=== PATIENT | male | born 1955 | race American Indian/Alaskan Native ===

== ENCOUNTER 2016-10-02 09:51 | Outpatient (CLI) | payer BC ==
[2016-10-02 10:40] LABS: Blood Urea Nitrogen 13 mg/dL (9-20)
[2016-10-02] MEDS ORDERED: NACL ONE (10:45)
--- NOTE | 2016-10-02 12:13 | Cat Scan Report ---
CT CHEST WITH AND WITHOUT CONTRAST INDICATION: Right hilar mass, hoarseness. COMPARISON: None similar at this institution. FINDINGS: Chest CT performed before and after IV contrast. Unremarkable heart and great vessels. No effusions or size significant adenopathy. Coronary calcifications. Mild aortic arch calcifications. Patent central airway. Normal thyroid. Mild emphysematous changes, most involving the upper lobes. Nonspecific distal esophageal wall thickening, not excluded for gastroesophageal reflux and/or hiatal hernia, amongst others. Contrast reflux into the hepatic veins noted, not excluded for cardiac dysfunction. Otherwise unremarkable imaged upper abdomen. Mild imaged spinal degenerative spurring. CONCLUSION: No acute CT abnormality with various incidental findings, as described. Please correlate. Thank you for the opportunity to participate in this patient's care.
== END 2016-10-02 09:52 | disposition home or self-care (01) ==
LOC: CT 09:51
PROVIDERS: ATTEND Internal Medicine
DX: R91.8 Other nonspecific abnormal finding of lung field (principal); I25.10 Atherosclerotic heart disease of native coronary artery without angina pectoris; I70.0 Atherosclerosis of aorta
CPT/HCPCS: 36415; 71270; 82565; 84520; Q9967

== ENCOUNTER 2019-08-27 12:32 | Inpatient (IN) | payer OTHER ==
[2019-08-27] MEDS ORDERED: DEXTROSE 50% IN WATER (25GM) 50 ML SYRINGE IV PRN (12:34)
[2019-08-27] MEDS ORDERED: LIPASE 10,500/PROTEASE 25,000/AMYLASE 43,750 (UNITS) DR CAP FEEDTUBE PRN (12:44)
[2019-08-27] MEDS ORDERED: SODIUM BICARBONATE 325 MG TAB FEEDTUBE PRN (12:44)
[2019-08-27] MEDS ORDERED: SIMPLE SYRUP 15 ML FEEDTUBE PRN ×2 (12:44)
[2019-08-27] MEDS ORDERED: ALBUTEROL 2.5 MG/3 ML NEBU IH PRN (12:45)
[2019-08-27] MEDS ORDERED: ACETAMINOPHEN 325 MG TAB FEEDTUBE PRN (12:45)
[2019-08-27] MEDS ORDERED: POLYETHYLENE GLYCOL 3350 17 GM POWDER FEEDTUBE PRN (12:45)
[2019-08-27] MEDS ORDERED: hydrALAZINE 20 MG/1 ML INJ IV PRN (12:45)
[2019-08-27] MEDS: HEPARIN 5,000 UNIT/1 ML VIAL SUB-Q SCH ×2 (15:13→21:22)
--- NOTE | 2019-08-27 16:03 | History and Physical Report ---
History of Present Illness Date: 08/27/19 Date of admission: 08/27/19 13:41 Chief Complaint: CVA with right nondominant hemiplegia History of present illness: 63-year-old male who presented to the ER 08/10/19 after experiencing a right-sided facial droop with slurred speech that started the night before. CT head was taken and showed a left MCA infarct. tPA was not administered as the patient was outside the window. Neurology was consulted. CTA head and neck were also ordered, no stenosis seen in the right or left carotid, no significant stenosis noted in the vasculature of the head except in the left M2 branch near the origin. Patient was placed on appropriate secondary stroke prevention medication with DAPT. While on the espinosa he was noted upon examination to have respiratory distress along with diffuse wheezing. Suctioning was performed and food products were removed from his airway. He was transferred to the ICU and intubated. Stat chest CT was completed but did not reveal any plugging or obstructions. Patient was started on IV antibiotics for presumed aspiration pneumonia. He was seen by speech therapy and noted to have severe dysphagia. Initially he had a NG tube placed which was dislodged. Underwent MBS which showed stephani aspiration and oral pharyngeal dysphagia. He was then scheduled for PEG tube placement which occurred on August 21, 2019 and was performed by Dr. Gaudencio Gonzales. The tube is traction pull and once it is no longer needed may be pulled after [address] weeks [address] in [address]. Unfortunately it appears he may continue to have need for this. Currently is n.p.o. with ice chips after appropriate oral care, will continue n.p.o. and only start ice chips once speech therapy feels this is safe. Patient is left-hand dominant and has severe right-sided hemiparesis. Fortunately for him he does have some recovery of right-sided strength whereas before he was completely flaccid per outside records. Continues to have right foot drop. Echocardiogram on August 11, 2019 showed an EF of 25 to 30% with mildly dilated left ventricle and a grade 2 diastolic dysfunction. There is also mention of an abnormal stress test that the outside hospital with an incomplete date that appears to show an abnormal perfusion scan demonstrating a large defect of severe intensity in the basal, mid and apical anterior wall. Cardiology romario mmended a ischemic work-up via left heart cath as an outpatient once he is recovered. There was question as to whether the patient has obstructive sleep apnea and outpatient follow-up was also recommended for this to perform a sleep study. Patient was not transferred on CPAP which was apparently discontinued during his stay in the outside hospital. He was also found to have type 2 diabetes with an A1c of 6.9. New diagnoses for this patient this admission include CVA, CHF, pulmonary hyper tension, diabetes type 2, hypertension. Previously patient had only been diagnosed with COPD and is a former smoker having quit approximately 1 year ago. All available medical records were reviewed the day prior to the patient being admitted. In total, 47 minutes were invested in reviewing and summarizing the records as detailed above. On day of admission details above were verified and entered into the history and physical. Upon admission, additional medical records were reviewed that came with the patient however we were missing the latest progress notes as well as a discharge summary. Have contacted referring hospital and requested that those items be faxed over as well for review. After the patient was medically stabilized they were transferred for further rehabilitation. All available medical records have been reviewed. Plan of care was discussed with patient and family. 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 denies: smoking (Former, quit 1 year ago), alcohol abuse (Occasional use) Family history: cancer, stroke Medications and Allergies Allergies Allergy/AdvReac Type Severity Reaction Status Date / Time No Known Allergies Allergy Unverified 10/02/16 09:52 Active Meds: Active Medications Acetaminophen (Tylenol) 650 mg FEEDTUBE Q6H PRN PRN Reason: Non Cardiac Pain or Temp>100.5 Albuterol (Proventil) 2.5 mg IH Q4HRT PRN PRN Reason: Shortness Of Breath Lipase/Protease/Amylase (Pancremirna Staley 10,500 Unit) 1 each FEEDTUBE PRN PRN PRN Reason: For Clogged Feeding Tube Arformoterol Tartrate (Brovana Nebu) 15 mcg IH Q12HRT BRE Aspirin (Baby Aspirin) 81 mg FEEDTUBE QDAY BRE Atorvastatin Calcium (Lipitor) 40 mg FEEDTUBE QHS BRE Bisacodyl (Dulcolax) 10 mg NV QDAY PRN PRN Reason: Constipation Budesonide (Pulmicort) 0.5 mg IH Q12HRT BRE Carvedilol (Coreg) 6.25 mg FEEDTUBE BID BRE Clopidogrel Bisulfate (Plavix) 75 mg FEEDTUBE QDAY [facility] Dextrose (D50w (25gm) Syringe) 50 ml IV Q30MIN PRN; Protocol PRN Reason: Hypoglycemia Furosemide (Lasix) 40 mg FEEDTUBE QDAY BRE Heparin Sodium (Porcine) (Heparin) 5,000 unit SUB-Q Q8HR [facility] Last Admin: 08/27/19 15:13 Dose: 5,000 unit Documented by: Hydralazine HCl (Apresoline) 10 mg IV Q4HR PRN PRN Reason: Hypertension Insulin Glargine (Lantus) 10 units SUB-Q QHS BRE Insulin Human Lispro (Humalog) 0 unit SUB-Q AC BRE; Protocol Lansoprazole (Prevacid Solutab) 30 mg FEEDTUBE QDAY BRE Lisinopril (Zestril) 2.5 mg FEEDTUBE QDAY [facility] Modafinil (Provigil) 200 mg FEEDTUBE QAM [facility] Polyethylene Glycol (Miralax 3350) 17 gm FEEDTUBE QDAY PRN PRN Reason: Constipation Prednisone (Prednisone) 0 mg FEEDTUBE QDAY BRE Simple Syrup (Simple Syrup) 15 ml FEEDTUBE PRN PRN PRN Reason: Hypoglycemia Simple Syrup (Simple Syrup) 30 ml FEEDTUBE PRN PRN PRN Reason: Hypoglycemia Sodium Bicarbonate (Sodium Bicarbonate) 325 mg FEEDTUBE PRN PRN PRN Reason: For Clogged Feeding Tube Review of Systems All systems: negative (ROS negative for 12 systems except as noted below with pertinent positives and negatives.) Constitutional: weakness Ears, nose, mouth and throat: dysphagia, voice changes, no decreased hearing Cardiovascular: no chest pain, no palpitations, no rapid/irregular heart beat, no edema, no shortness of breath, no leg edema Respiratory: sleep apnea (Possible), no cough, no shortness of breath Gastrointestinal: no nausea, no vomiting, no diarrhea, no constipation Musculoskeletal: limitation of motion, gait dysfunction Integumentary: no rash, no pruritis, no sores Neurological: paralysis (Right ro-paresis), parathesias, lack of coordination, change in speech, gait dysfunction, no memory loss, no double vision, no loss of vision, no spasticity Psychiatric: no insomnia Exam - Exam Narrative exam: MUSCULOSKELETAL SPECIALTY EXAM CONSTITUTIONAL: Well developed, well nourished, appropriately groomed. LEFT hand dominant. LYMPHATIC: No appreciable abnormalities palpable in neck RESPIRATORY: Clear to auscultation bilaterally, no increased work of breathing CARDIOVASCULAR: Regular Rate/ Rhythm, no swelling, edema or tenderness in BUE or BLE. Pulses palpable in all extremities. All extremities warm. GI: + bowel sounds, soft, NTTP, nondistended. PEG tube in place INTEGUMENTARY: Normal, no lesion, rash, masses or bruising noted in extremities. MUSCULOSKELETAL: Right-sided hemiparesis with slight shoulder sublux, otherwise BUE and BLE normal without defect, crepitus, subluxation, effusion, arthritic changes or TTP . SA EF WE EE FF FA HF KE ADF EHL APF R 0/5 2/5 0/5 0/5 0/5 0/5 4-/5 4-/5 0/5 0/5 0/5 L 5/5 5/5 5/5 5/5 5/5 5/5 5/5 5/5 5/5 5/5 5/5 ROM decreased on right Tone increased on right upper extremity, normal elsewhere NEURO: CN II : Visual cervantes full to confrontation CN II, III : PERRL CN III, IV, : EOMI CN V : Facial sensation intact CN VII : Right facial droop CN VIII : Hearing intact to finger rustle CN IX, X : Palate/uvula elevate midline, phonation abnormal CN XI : Absent shoulder shrug on right, normal head rotation CN XII : Tongue protrudes slightly right Sensation intact in all extremities without extinction. Reflexes 3+ on right and 2+ on left at biceps, brachioradialis and patella. No clonus at ankles. Coordination intact in LUE. No tremor noted in 4 extremities. Naming and repetition intact. Follows 2 step commands. Aphasia not appreciated Dysarthria present Dysphagia present Neglect not appreciated POSTURE and GAIT: Sitting posture good. Balance and gait deferred until seen with therapy. PSYCH: Alert, oriented x3, affect appears euthymic. Insight appears intact. - Constitutional Vitals: Vital Signs - 12hr 08/27/19 13:43 Temperature 97.3 F L Pulse Rate 71 Respiratory 18 Rate Blood Pressure 89/58 [Right] O2 Sat by Pulse 90 Oximetry - Labs CBC & Chem 7: 08/28/19 04:45 08/28/19 04:45 Assessment and Plan Assessment and plan: Patient was assessed and evaluated for Acute Inpatient Rehab Unit. Due to the patients above-mentioned medical complexity, along with decreased functional mobility and self care, this patient continues to require and be appropriate for a comprehensive, multidisciplinary [id number] rehabilitation program. These needs cannot be met in an outpatient or other less intensive setting. The patient would continue to benefit from skilled therapy intervention for at least 3 hours per day, five days a week, with t echniques specific to the needs of the patient to improve function, activities of daily living, and reintegration into the community. The patient continues to require: -- OT to improve ROM, self-care, and learn use of adaptive equipment -- PT to improve strength and balance, functional transfers, and ambulation with energy conservation techniques to improve functional mobility -- MANAGER DIALYSIS to address cognitive deficits and swallowing ability -- 24 hour RN to ensure and prevent skin breakdown, promote progressive independence while ensuring safety, ensure education regarding medications, and incorporation of the rehabilitation at the bedside -- 24 hour Environmental Geologist to coordinate this interdisciplinary program, and to manage/prevent complications as a result of the patients medical comorbidities. -Plan of care by day 4 -Weekly team conferences With such a program, there is a reasonable certainty that the goals individualized for this patient can be achieved within the specified length of stay. CVA with right nondominant hemiparesis: Continue secondary stroke protocol with DAPT. Continue to monitor for recurrent CVA, post stroke depression, shoulder- hand syndrome. Monitor skin for any new wounds and monitor positioning to reduce chance of new ones. No driving until cleared by neurology, follow-up with neurology after discharge. Discussion held with patient as well as concerning prognosis, secondary stroke prevention, and plan of care for stroke recovery. Smoking cessation conversation held with as well as patient. In total 5 minutes was spent on the importance of the going through smoking cessation as well as the maintaining his cessation. COPD: Continue medications as ordered. Supplemental O2 as needed. Monitor for signs symptoms of exacerbation. Respiratory therapy consult. CHF: Monitor for CHF exacerbation. Daily weights, nursing notify for weight gain greater than 5 pounds in 1 week. Lifestyle modifications discussed (weight loss, tobacco cessation, decrease sodium intake). Continue loop diuretics, beta-seven and KODAK inhibitor as tolerated. Hypertension: Continue medication. Monitor blood pressure and adjust medications as needed for normotension. Hold for hypotension Diabetes type 2: Patient currently on tube feeds. Will monitor blood glucose and continue sliding scale insulin as well as Lantus. Adjust medications as needed for normal glycemia. Dysphagia: Continue n.p.o. with tube feeds. MANAGER DIALYSIS to monitor and advance diet as able and perform FEES, MBSS or e-stim as needed. Right foot drop: Continue therapy. Monitor foot placement to avoid injury. Kodak wrap and/or AFO as needed and tolerated. May need to order custom AFO, will make decision as we work with him. Right shoulder subluxation: Continue support right upper extremity with either sling and/or arm tray in the wheelchair. Monitor for worsening continue strengthening and e-stim as needed for improvement. No current signs of shoulder-hand syndrome continue to monitor for any signs or symptoms. Right facial droop: Continue therapy for strengthening exercises to improve facial strength. E-stim as needed. Dysarthria: Continue MANAGER DIALYSIS to improve ability to speak clearly by strengthening and improving control muscles, improving breath support and slowing rate of speech. ADL dysfunction: OT will work on improving ability to perform ADLs (including assistive devices) to increase independence and decrease caregiver burden and improve functional transfers and mobility training. Difficulty walking: PT will work on gait training and proper use of assistive devices and advance as appropriate to use of stairs and outside ambulation on uneven surfaces. Unsteadiness on feet: PT will work on improving static and dynamic sitting and standing balance as well as proper use of assistive devices to decrease risk of falls. Abnormality of gait: PT will work to improve safety and efficiency of gait through neuromotor training and gait training along with instruction on proper use of assistive devices. Muscle weakness: PT & OT will work on strengthening exercises to improve functional strength including mixture of closed and open kinetic chain exercises. Debility: PT & OT will work on improving overall functional status to improve participation with ADLs, mobility and social involvement. Fatigue: PT & OT will work on improving endurance through aerobic exercises and therapeutic activity while monitoring patients tolerance for activity and vital signs as needed. DVT ppx: Heparin Pain: Continue physical modalities in therapy and pain medications as needed to achieve functional pain control. Sleep: Monitor and address as needed. Bowel: Monitor and address as needed. Appetite: Monitor and address as needed. Discharge planning: Pending therapy progress and care plan meeting. Will continue discussion with therapy team, SW, patient and family. Restrictions/ Precautions: Falls, aspiration, right hemiparesis WB status: FWB Functional Hx: ADLs: Independent Cognition: Independent Mobility: No AD Barriers to Discharge: Decreased mobility and ability to perform self care, balance deficits, weakness Estimated Length of Stay: 1421 days Discharge Destination: Home with family In total 75 minutes were spent with the patient and documentation. Greater than 45 minutes was spent [id number] with the patient and his counseling and coordinating care discussing the prognosis and recovery from his CVA as well as his new onset medical issues, contacting outside hospital for further records and discussing medical issues with nursing and therapy. POST ADMISSION PHYSICIAN EVALUATION I have examined the patient and find that functional status, medical condition and appropriateness for IR[facility] admission are essentially unchanged from those described in the preadmission screening. Will monitor for worsening CVA with right hemiparesis, dysphagia, dysarthria, right foot drop, shoulder subluxation, shoulder-hand syndrome, post stroke depression, recurrent CVA, DVT/PE, bowel and bladder complications and complications due to hypertension, CHF, diabetes, COPD, skin breakdown, and electrolyte abnormalities. Will attempt to avoid occurrence of these issues or treat them if they present themselves.
[2019-08-27] MEDS: INSULIN LISPRO 100 UNIT/ML SUB-Q SCH (16:43)
[2019-08-27] MEDS: ARFORMOTEROL 15 MCG/2 ML NEBU IH SCH (20:31)
[2019-08-27] MEDS: BUDESONIDE 0.5 MG/2 ML NEBU IH SCH (20:31)
[2019-08-27] MEDS: carvediloL 6.25 MG TAB FEEDTUBE SCH (21:20)
[2019-08-27] MEDS: INSULIN GLARGINE 100 UNITS/ML SUB-Q SCH (21:29)
[2019-08-28] MEDS: HEPARIN 5,000 UNIT/1 ML VIAL SUB-Q SCH ×3 (05:35→22:58)
[2019-08-28 05:38] LABS: Basophils % (Auto) 0.2 % (0.0-1.8); Eosinophils # (Auto) 0.2 K/mm3 (0.0-0.4); Eosinophils % (Auto) 3.3 % (0.0-4.3); Hematocrit 40.4 % (35.5-45.6); Hemoglobin 13.2 gm/dl (11.8-15.2); Lymphocytes # (Auto) 0.8 K/mm3 (1.2-5.4); Lymphocytes % (Auto) 12.2 % (13.4-35.0); Mean Corpuscular HGB Conc 33 % (32-34); Mean Corpuscular Volume 91 fl (84-94); Monocytes # (Auto) 0.7 K/mm3 (0.0-0.8); Platelet Count 217 K/mm3 (140-440); Red Blood Count 4.45 M/mm3 (3.65-5.03); Red Cell Distribution Width 12.8 % (13.2-15.2)
[2019-08-28 05:49] LABS: Alanine Aminotransferase 53 units/L (7-56); BUN/Creatinine Ratio 21; Blood Urea Nitrogen 17 mg/dL (9-20); Hemolysis Index 5
[2019-08-28] MEDS: INSULIN LISPRO 100 UNIT/ML SUB-Q SCH ×3 (07:48→17:02)
[2019-08-28] MEDS ORDERED: predniSONE 5 MG/5 ML ORAL LIQUID FEEDTUBE SCH (08:00)
[2019-08-28] MEDS: LISINOPRIL 5 MG TAB FEEDTUBE SCH (08:44)
[2019-08-28] MEDS: BUDESONIDE 0.5 MG/2 ML NEBU IH SCH ×2 (08:50→19:58)
[2019-08-28] MEDS: ARFORMOTEROL 15 MCG/2 ML NEBU IH SCH ×2 (08:50→19:58)
[2019-08-28 09:04] LABS: Prealbumin 0.238 g/L (0.200-0.400)
[2019-08-28] MEDS: LANSOPRAZOLE 30 MG SOLUTAB FEEDTUBE SCH (10:36)
[2019-08-28] MEDS: FUROSEMIDE 40 MG TAB FEEDTUBE SCH (10:36)
[2019-08-28] MEDS: ASPIRIN 81 MG TAB CHEW FEEDTUBE SCH (10:36)
[2019-08-28] MEDS: carvediloL 6.25 MG TAB FEEDTUBE SCH ×2 (10:36→22:49)
[2019-08-28] MEDS: MODAFINIL 100 MG TAB FEEDTUBE SCH (11:43)
[2019-08-28] MEDS: CLOPIDOGREL 75 MG TAB FEEDTUBE SCH (11:44)
--- NOTE | 2019-08-28 15:29 | Progress Note ---
Subjective Date of service: 08/28/19 Principal diagnosis: CVA with right nondominant hemiplegia Interval history: 63-year-old male who presented to the ER 08/10/19 after experiencing a right-sided facial droop with slurred speech that started the night before. CT head was taken and showed a left MCA infarct. tPA was not administered as the patient was outside the window. Neurology was consulted. CTA head and neck were also ordered, no stenosis seen in the right or left carotid, no significant stenosis noted in the vasculature of the head except in the left M2 branch near the origin. Patient was placed on appropriate secondary stroke prevention medication with DAPT. While on the espinosa he was noted upon examination to have respiratory distress along with diffuse wheezing. Suctioning was performed and food products were removed from his airway. He was transferred to the ICU and intubated. Stat chest CT was completed but did not reveal any plugging or obstructions. Patient was started on IV antibiotics for presumed aspiration pneumonia. He was seen by speech therapy and noted to have severe dysphagia. Initially he had a NG tube placed which was dislodged. Underwent MBS which showed stephani aspiration and oral pharyngeal dysphagia. He was then scheduled for PEG tube placement which occurred on August 21, 2019 and was performed by Dr. Gaudencio Gonzales. The tube is traction pull and once it is no longer needed may be pulled after [address] weeks of [address] in [address]. Unfortunately it appears he may continue to have need for this. Currently is n.p.o. with ice chips after appropriate oral care, will continue n.p.o. and only start ice chips once speech therapy feels this is safe. Patient is left-hand dominant and has severe right-sided hemiparesis. Fortunately for him he does have some recovery of right-sided strength whereas before he was completely flaccid per outside records. Continues to have right foot drop. Echocardiogram on August 11, 2019 showed an EF of 25 to 30% with mildly dilated left ventricle and a grade 2 diastolic dysfunction. There is also mention of an abnormal stress test that the outside hospital with an incomplete date that appears to show an abnormal perfusion scan demonstrating a large defect of severe intensity in the basal, mid and apical anterior wall. Cardiology recommended a ischemic work-up via left heart cath as an outpatient once he is recovered. There was question as to whether the patient has obstructive sleep apnea and outpatient follow-up was also recommended for this to perform a sleep study. Patient was not transferred on CPAP which was apparently discontinued during his stay in the outside hospital. He was also found to have type 2 diabetes with an A1c of 6.9. New diagnoses for this patient this admission include CVA, CHF, pulmonary hypertension, diabetes type 2, hypertension. Previously patient had only been diagnosed with COPD and is a former smoker having quit approximately 1 year ago. Interval History: Patient is participating in therapy and making reasonable progress. Taking rest breaks as needed. +BM. Denies pain, palpitations, dyspnea, cough, N/V, weakness, or joint pain. CVA with right nondominant hemiparesis: Tolerating secondary stroke prevention without signs of bleeding. No signs of worsening deficits due to CVA. No shoulder-hand syndrome appreciated. COPD: Continue inhalers. See dyspnea on exertion below. Otherwise at rest patient is not having any issues with breathing, no wheezes no use of accessory muscles etc. Dyspnea on exertion: Continue to monitor patient while doing exercises. He appears to be satting normally at rest however with exertion he drops into the 70s and 80s. Will need to monitor closely, will check chest x-ray CHF: Seems to be well controlled, monitor fluid status and edema along with daily weights. Continue medications and adjust as needed Hypertension: Blood pressures been on the lower side. Will continue to monitor and possibly need to adjust in the next few days if he starts to get lower. Diabetes type 2: So far glucose has not been extremely elevated. May be able to relax his sliding scale. Dysphagia: Continue n.p.o. until cleared by speech for being able to tolerate oral intake. Patient is on continuous tube feeds currently will look to change him to bolus feeds as soon as possible. Right foot drop: Continue to work with therapy. Will need AFO at some point. Dysarthria: Stable at this point. Continue work with speech in order to improve. Right shoulder subluxation: Stable, reminded patient to continue to elevate the arm and to monitor it. No signs of shoulder-hand syndrome currently. All records, vitals, labs and medications were reviewed. No other issues per patient, nursing or therapy. Patient is cussed during team conference. At this point this is a brand-new eval and therapy has not had much time to work with and evaluate the patient we are looking for likely the entire period of 21 days for this patient considering his deficits. Objective - Exam Narrative Exam: MUSCULOSKELETAL SPECIALTY EXAM CONSTITUTIONAL: Well developed, well nourished, appropriately groomed. LEFT hand dominant. RESPIRATORY: Clear to auscultation bilaterally, no increased work of breathing CARDIOVASCULAR: Regular Rate/ Rhythm, no swelling, edema or tenderness in BUE or BLE. All extremities warm. GI: + bowel sounds, soft, NTTP, nondistended. PEG tube in place INTEGUMENTARY: Normal, no lesion, rash, masses or bruising noted in extremities. MUSCULOSKELETAL: Right-sided hemiparesis with slight shoulder sublux, otherwise BUE and BLE normal without defect, crepitus, subluxation, effusion, arthritic changes or TTP. SA EF WE EE FF FA HF KE ADF EHL APF R 0/5 2/5 0/5 0/5 0/5 0/5 4-/5 4-/5 0/5 0/5 0/5 L 5/5 5/5 5/5 5/5 5/5 5/5 5/5 5/5 5/5 5/5 5/5 ROM decreased on right Tone increased on right upper extremity, normal elsewhere NEURO: CN VII : Right facial droop CN IX, X : Palate/uvula elevate midline, phonation abnormal CN XI : Absent shoulder shrug on right, normal head rotation CN XII : Tongue protrudes slightly right Sensation intact in all extremities without extinction. No tremor noted in 4 extremities. Naming and repetition intact. Follows 2 step commands. Aphasia not appreciated Dysarthria present Dysphagia present Neglect not appreciated POSTURE and GAIT: Sitting posture good. Balance and gait deferred until seen with therapy. PSYCH: Alert, oriented x3, affect appears euthymic. Insight appears intact. - Constitutional Vitals: Vital Signs - 12hr 08/28/19 08/28/19 08/28/19 04:39 07:54 08:50 Temperature 99.1 F 97.6 F Pulse Rate 83 78 Pulse Rate [ 81 Anterior Bilateral Throughout] Respiratory 17 18 Rate Respiratory 18 Rate [Anterior Bilateral Throughout] Blood Pressure 96/59 Blood Pressure 101/65 [Right] O2 Sat by Pulse 95 100 Oximetry 08/28/19 08/28/19 08:51 11:00 Temperature 97.2 F L Pulse Rate 85 Pulse Rate [ Anterior Bilateral Throughout] Respiratory 19 Rate Respiratory Rate [Anterior Bilateral Throughout] Blood Pressure Blood Pressure 109/68 [Right] O2 Sat by Pulse 96 100 Oximetry - Allied health notes Allied health notes reviewed: nursing, PT, ST, OT FIMS assessment as documented by PT/OT/ST: Locomotion- walk/wheelchair Ambulation Distance 10 - Labs CBC & Chem 7: 08/28/19 04:45 08/28/19 04:45 Labs: Laboratory Results - last 72 hr 08/27/19 08/27/19 08/28/19 16:19 20:52 04:45 WBC 6.7 RBC 4.45 Hgb 13.2 Hct 40.4 MCV 91 MCH 30 MCHC 33 RDW 12.8 L Plt Count 217 Lymph % (Auto) 12.2 L Mckinley % (Auto) 11.0 H Eos % (Auto) 3.3 Baso % (Auto) 0.2 Lymph # 0.8 L Mckinley # 0.7 Eos # 0.2 Baso # 0.0 Seg Neutrophils % 73.3 H Seg Neutrophils # 4.9 Sodium Potassium Chloride Carbon Dioxide Anion Gap BUN Creatinine Estimated GFR BUN/Creatinine Ratio Glucose POC Glucose 101 185 H Calcium Phosphorus Magnesium Total Bilirubin AST ALT Alkaline Phosphatase Total Protein Albumin Albumin/Globulin Ratio Prealbumin 08/28/19 08/28/19 08/28/19 04:45 07:21 07:52 WBC RBC Hgb Hct MCV MCH MCHC RDW Plt Count Lymph % (Auto) Mckinley % (Auto) Eos % (Auto) Baso % (Auto) Lymph # Mckinley # Eos # Baso # Seg Neutrophils % Seg Neutrophils # Sodium 136 L Potassium 4.2 Chloride 98.7 Carbon Dioxide 28 Anion Gap 14 BUN 17 Creatinine 0.8 Estimated GFR > 60 BUN/Creatinine Ratio 21 Glucose 159 H POC Glucose 122 H Calcium 9.0 Phosphorus 3.50 Magnesium 2.20 Total Bilirubin 0.30 AST 40 ALT 53 Alkaline Phosphatase 83 Total Protein 6.1 L Albumin 3.0 L Albumin/Globulin Ratio 1.0 Prealbumin 0.238 08/28/19 12:06 WBC RBC Hgb Hct MCV MCH MCHC RDW Plt Count Lymph % (Auto) Mckinley % (Auto) Eos % (Auto) Baso % (Auto) Lymph # Mckinley # Eos # Baso # Seg Neutrophils % Seg Neutrophils # Sodium Potassium Chloride Carbon Dioxide Anion Gap BUN Creatinine Estimated GFR BUN/Creatinine Ratio Glucose POC Glucose 118 H Calcium Phosphorus Magnesium Total Bilirubin AST ALT Alkaline Phosphatase Total Protein Albumin Albumin/Globulin Ratio Prealbumin Assessment and Plan CVA with right nondominant hemiparesis: Continue secondary stroke protocol with DAPT. Continue to monitor for recurrent CVA, post stroke depression, shoulder- hand syndrome. Monitor skin for any new wounds and monitor positioning to reduce chance of new ones. No driving until cleared by neurology, follow-up with neurology after discharge. Discussion held with patient as well as concerning prognosis, secondary stroke prevention, and plan of care for stroke recovery. Smoking cessation conversation held with as well as patient. In total 5 minutes was spent on the importance of the going through smoking cessation as well as the maintaining his cessation. COPD: Continue medications as ordered. Supplemental O2 as needed. Monitor for signs symptoms of exacerbation. Respiratory therapy consult. CHF: Monitor for CHF exacerbation. Daily weights, nursing notify for weight gain greater than 5 pounds in 1 week. Lifestyle modifications discussed (weight loss, tobacco cessation, decrease sodium intake). Continue loop diuretics, beta-seven and KODAK inhibitor as tolerated. Hypertension: Continue medication. Monitor blood pressure and adjust medications as needed for normotension. Hold for hypotension Diabetes type 2: Patient currently on tube feeds. Will monitor blood glucose and continue sliding scale insulin as well as Lantus. Adjust medications as needed for normal glycemia. Dysphagia: Continue n.p.o. with tube feeds. AUDITOR to monitor and advance diet as able and perform FEES, MBSS or e-stim as needed. Right foot drop: Continue therapy. Monitor foot placement to avoid injury. Kodak wrap and/or AFO as needed and tolerated. May need to order custom AFO, will make decision as we work with him. Right shoulder subluxation: Continue support right upper extremity with either sling and/or arm tray in the wheelchair. Monitor for worsening continue strengthening and e-stim as needed for improvement. No current signs of shoulder-hand syndrome continue to monitor for any signs or symptoms. Right facial droop: Continue therapy for strengthening exercises to improve facial strength. E-stim as needed. Dysarthria: Continue AUDITOR to improve ability to speak clearly by strengthening and improving control muscles, improving breath support and slowing rate of speech. ADL dysfunction: OT will work on improving ability to perform ADLs (including assistive devices) to increase independence and decrease caregiver burden and improve functional transfers and mobility training. Difficulty walking: PT will work on gait training and proper use of assistive devices and advance as appropriate to use of stairs and outside ambulation on uneven surfaces. Unsteadiness on feet: PT will work on improving static and dynamic sitting and standing balance as well as proper use of assistive devices to decrease risk of falls. Abnormality of gait: PT will work to improve safety and efficiency of gait thro [facility] neuromotor training and gait training along with instruction on proper use of assistive devices. Muscle weakness: PT & OT will work on strengthening exercises to improve functional strength including mixture of closed and open kinetic chain exercises. Debility: PT & OT will work on improving overall functional status to improve participation with ADLs, mobility and social involvement. Fatigue: PT & OT will work on improving endurance through aerobic exercises and therapeutic activity while monitoring patients tolerance for activity and vital signs as needed. DVT ppx: Heparin Pain: Continue physical modalities in therapy and pain medications as needed to achieve functional pain control. Sleep: Monitor and address as needed. Bowel: Monitor and address as needed. Appetite: Monitor and address as needed. Discharge planning: Pending therapy progress and care plan meeting. Will continue discussion with therapy team, SW, patient and family. Restrictions/ Precautions: Falls, aspiration, right hemiparesis WB status: FWB Functional Hx: ADLs: Independent Cognition: Independent Mobility: No AD Barriers to Discharge: Decreased mobility and ability to perform self care, armando nce deficits, weakness Estimated Length of Stay: 1421 days Discharge Destination: Home with family
--- NOTE | 2019-08-28 16:04 | XRay Report ---
CHEST 1 VIEW 08/28/2019 3:50 PM INDICATION / CLINICAL INFORMATION: Shortness of breath, desaturation. COMPARISON: None available. FINDINGS: SUPPORT DEVICES: None. HEART / MEDIASTINUM: Mild cardiomegaly. LUNGS / PLEURA: No significant pulmonary or pleural abnormality. No pneumothorax. ADDITIONAL FINDINGS: No significant additional findings. IMPRESSION: 1. Mild cardiomegaly without focal pulmonary abnormality. Signer Name: Deshaun Da Silva MD Signed: 08/28/2019 4:00 PM Workstation Name: [email or web address]
[2019-08-28] MEDS: INSULIN GLARGINE 100 UNITS/ML SUB-Q SCH (22:49)
[2019-08-29] MEDS: HEPARIN 5,000 UNIT/1 ML VIAL SUB-Q SCH ×3 (06:20→22:49)
[2019-08-29] MEDS: INSULIN LISPRO 100 UNIT/ML SUB-Q SCH ×3 (08:27→18:55)
[2019-08-29] MEDS: LANSOPRAZOLE 30 MG SOLUTAB FEEDTUBE SCH (08:29)
[2019-08-29] MEDS: carvediloL 6.25 MG TAB FEEDTUBE SCH ×2 (08:29→22:50)
[2019-08-29] MEDS: CLOPIDOGREL 75 MG TAB FEEDTUBE SCH (08:29)
[2019-08-29] MEDS: LISINOPRIL 5 MG TAB FEEDTUBE SCH (08:29)
[2019-08-29] MEDS: FUROSEMIDE 40 MG TAB FEEDTUBE SCH (08:29)
[2019-08-29] MEDS: ASPIRIN 81 MG TAB CHEW FEEDTUBE SCH (08:29)
[2019-08-29] MEDS: MODAFINIL 100 MG TAB FEEDTUBE SCH (09:09)
[2019-08-29] MEDS: BUDESONIDE 0.5 MG/2 ML NEBU IH SCH ×2 (10:56→23:09)
[2019-08-29] MEDS: ARFORMOTEROL 15 MCG/2 ML NEBU IH SCH ×2 (10:56→23:09)
[2019-08-29] MEDS: predniSONE 5 MG/5 ML ORAL LIQUID FEEDTUBE SCH (12:48)
--- NOTE | 2019-08-29 13:27 | Progress Note ---
Subjective Date of service: 08/29/19 Principal diagnosis: CVA with right nondominant hemiplegia Interval history: 63-year-old male who presented to the ER 08/10/19 after experiencing a right-sided facial droop with slurred speech that started the night before. CT head was taken and showed a left MCA infarct. tPA was not administered as the patient was outside the window. Neurology was consulted. CTA head and neck were also ordered, no stenosis seen in the right or left carotid, no significant stenosis noted in the vasculature of the head except in the left M2 branch near the origin. Patient was placed on appropriate secondary stroke prevention medication with DAPT. While on the espinosa he was noted upon examination to have respiratory distress along with diffuse wheezing. Suctioning was performed and food products were removed from his airway. He was transferred to the ICU and intubated. Stat chest CT was completed but did not reveal any plugging or obstructions. Patient was started on IV antibiotics for presumed aspiration pneumonia. He was seen by speech therapy and noted to have severe dysphagia. Initially he had a NG tube placed which was dislodged. Underwent MBS which showed stephani aspiration and oral pharyngeal dysphagia. He was then scheduled for PEG tube placement which occurred on August 21, 2019 and was performed by Dr. Gaudencio Gonzales. The tube is traction pull and once it is no longer needed may be pulled after [address] weeks of [address] in [address]. Unfortunately it appears he may continue to have need for this. Currently is n.p.o. with ice chips after appropriate oral care, will continue n.p.o. and only start ice chips once speech therapy feels this is safe. Patient is left-hand dominant and has severe right-sided hemiparesis. Fortunately for him he does have some recovery of right-sided strength whereas before he was completely flaccid per outside records. Continues to have right foot drop. Echocardiogram on August 11, 2019 showed an EF of 25 to 30% with mildly dilated left ventricle and a grade 2 diastolic dysfunction. There is also mention of an abnormal stress test that the outside hospital with an incomplete date that appears to show an abnormal perfusion scan demonstrating a large defect of severe intensity in the basal, mid and apical anterior wall. Cardiology recommended a ischemic work-up via left heart cath as an outpatient once he is recovered. There was question as to whether the patient has obstructive sleep apnea and outpatient follow-up was also recommended for this to perform a sleep study. Patient was not transferred on CPAP which was apparently discontinued during his stay in the outside hospital. He was also found to have type 2 diabetes with an A1c of 6.9. New diagnoses for this patient this admission include CVA, CHF, pulmonary hypertension, diabetes type 2, hypertension. Previously patient had only been diagnosed with COPD and is a former smoker having quit approximately 1 year ago. Interval History: Patient is participating in therapy and making reasonable progress. Taking rest breaks as needed. +BM. Denies pain, palpitations, dyspnea, cough, N/V, weakness, or joint pain. Also have [place] paperwork to fill out. CVA with right nondominant hemiparesis: Tolerating secondary stroke prevention without signs of bleeding. No signs of worsening deficits due to CVA. No shoulder-hand syndrome appreciated. COPD: Continue inhalers. See dyspnea on exertion below. Otherwise at rest patient is not having any issues with breathing, no wheezes no use of accessory muscles etc. Dyspnea on exertion: Continue to monitor patient while doing exercises. Chest x-ray reviewed did not show any acute abnormalities. Patient seems to be doing much better today as long as he is reminded to keep breathing his oxygen sats are staying in the 90s. CHF: Seems to be well controlled, monitor fluid status and edema along with daily weights. Continue medications and adjust as needed Hypertension: Blood pressures been on the lower side. Will continue to monitor and possibly need to adjust in the next few days if he starts to get lower. Diabetes type 2: We will add metformin and discontinue Lantus. Continue sliding scale. May also be elevated due to steroid. Continue to monitor Dysphagia: Continue n.p.o. until cleared by speech for being able to tolerate oral intake. Dietitian has not changed patient over to bolus feeds, I will make calculations and change him over. Right foot drop: On initial exam patient was unable to dorsiflex his right foot however today he has the ability to do this. We will continue to monitor to see if this continues or if this is an intermittent issue. For the time being will hold off on AFO. Dysarthria: Stable at this point. Continue work with speech in order to improve. Right shoulder subluxation: Stable, reminded patient to continue to elevate the arm and to monitor it. No signs of shoulder-hand syndrome currently. All records, vitals, labs and medications were reviewed. No other issues per patient, nursing or therapy. Objective - Exam Narrative Exam: MUSCULOSKELETAL SPECIALTY EXAM CONSTITUTIONAL: Well developed, well nourished, appropriately groomed. LEFT hand dominant. RESPIRATORY: Clear to auscultation bilaterally, no increased work of breathing CARDIOVASCULAR: Regular Rate/ Rhythm, no swelling, edema or tenderness in BUE or BLE. All extremities warm. GI: + bowel sounds, soft, NTTP, nondistended. PEG tube in place INTEGUMENTARY: Normal, no lesion, rash, masses or bruising noted in extremities. MUSCULOSKELETAL: Right-sided hemiparesis with slight shoulder sublux, otherwise BUE and BLE normal without defect, crepitus, subluxation, effusion, arthritic changes or TTP. SA EF WE EE FF FA HF KE ADF EHL APF R 0/5 2/5 0/5 0/5 0/5 0/5 4-/5 4-/5 3/5 3/5 3/5 L 5/5 5/5 5/5 5/5 5/5 5/5 5/5 5/5 5/5 5/5 5/5 ROM decreased on right Tone increased on right upper extremity, normal elsewhere NEURO: CN VII : Right facial droop CN IX, X : Palate/uvula elevate midline, phonation abnormal CN XI : Absent shoulder shrug on right, normal head rotation CN XII : Tongue protrudes slightly right Sensation intact in all extremities without extinction. No tremor noted in 4 extremities. Naming and repetition intact. Follows 2 step commands. Aphasia not appreciated Dysarthria present Dysphagia present Neglect not appreciated POSTURE and GAIT: Sitting posture good. Balance and gait deferred until seen with therapy. PSYCH: Alert, oriented x3, affect appears euthymic. Insight appears intact. - Constitutional Vitals: Vital Signs - 12hr 08/29/19 08/29/19 08/29/19 04:12 04:54 07:16 Temperature 97.9 F 97.7 F Pulse Rate 78 Pulse Rate [ Anterior Bilateral Throughout] Respiratory 18 18 Rate Respiratory Rate [Anterior Bilateral Throughout] Blood Pressure 90/60 109/69 O2 Sat by Pulse 98 91 Oximetry 08/29/19 08/29/19 10:56 10:59 Temperature Pulse Rate Pulse Rate [ 79 Anterior Bilateral Throughout] Respiratory Rate Respiratory 18 Rate [Anterior Bilateral Throughout] Blood Pressure O2 Sat by Pulse 99 Oximetry - Allied health notes Allied health notes reviewed: nursing, PT, ST, OT FIMS assessment as documented by PT/OT/ST: Locomotion- walk/wheelchair Ambulation Distance 10 - Labs CBC & Chem 7: 08/28/19 04:45 08/28/19 04:45 Labs: Laboratory Results - last 72 hr 08/27/19 08/27/19 08/28/19 16:19 20:52 04:45 WBC 6.7 RBC 4.45 Hgb 13.2 Hct 40.4 MCV 91 MCH 30 MCHC 33 RDW 12.8 L Plt Count 217 Lymph % (Auto) 12.2 L Blount % (Auto) 11.0 H Eos % (Auto) 3.3 Baso % (Auto) 0.2 Lymph # 0.8 L [place]ount # 0.7 Eos # 0.2 Baso # 0.0 Seg Neutrophils % 73.3 H Seg Neutrophils # 4.9 Sodium Potassium Chloride Carbon Dioxide Anion Gap BUN Creatinine Estimated GFR BUN/Creatinine Ratio Glucose POC Glucose 101 185 H Calcium Phosphorus Magnesium Total Bilirubin AST ALT Alkaline Phosphatase Total Protein Albumin Albumin/Globulin Ratio Prealbumin 08/28/19 08/28/19 08/28/19 04:45 07:21 07:52 WBC RBC Hgb Hct MCV MCH MCHC RDW Plt Count Lymph % (Auto) [place] % (Auto) Eos % (Auto) Baso % (Auto) Lymph # Blount # Eos # Baso # Seg Neutrophils % Seg Neutrophils # Sodium 136 L Potassium 4.2 Chloride 98.7 Carbon Dioxide 28 Anion Gap 14 BUN 17 Creatinine 0.8 Estimated GFR > 60 BUN/Creatinine Ratio 21 Glucose 159 H POC Glucose 122 H Calcium 9.0 Phosphorus 3.50 Magnesium 2.20 Total Bilirubin 0.30 AST 40 ALT 53 Alkaline Phosphatase 83 Total Protein 6.1 L Albumin 3.0 L Albumin/Globulin Ratio 1.0 Prealbumin 0.238 08/28/19 08/28/19 08/28/19 12:06 16:36 21:52 WBC RBC Hgb Hct MCV MCH MCHC RDW Plt Count Lymph % (Auto) [place] % (Auto) Eos % (Auto) Baso % (Auto) Lymph # Blount # Eos # Baso # Seg Neutrophils % Seg Neutrophils # Sodium Potassium Chloride Carbon Dioxide Anion Gap BUN Creatinine Estimated GFR BUN/Creatinine Ratio Glucose POC Glucose 118 H 166 H 147 H Calcium Phosphorus Magnesium Total Bilirubin AST ALT Alkaline Phosphatase Total Protein Albumin Albumin/Globulin Ratio Prealbumin 08/29/19 08/29/19 07:19 11:13 WBC RBC Hgb Hct MCV MCH MCHC RDW Plt Count Lymph % (Auto) [place] % (Auto) Eos % (Auto) Baso % (Auto) Lymph # Blount # Eos # Baso # Seg Neutrophils % Seg Neutrophils # Sodium Potassium Chloride Carbon Dioxide Anion Gap BUN Creatinine Estimated GFR BUN/Creatinine Ratio Glucose POC Glucose 137 H 195 H Calcium Phosphorus Magnesium Total Bilirubin AST ALT Alkaline Phosphatase Total Protein Albumin Albumin/Globulin Ratio Prealbumin Assessment and Plan CVA with right nondominant hemiparesis: Continue secondary stroke protocol with DAPT. Continue to monitor for recurrent CVA, post stroke depression, shoulder- hand syndrome. Monitor skin for any new wounds and monitor positioning to reduce chance of new ones. No driving until cleared by neurology, follow-up with neurology after discharge. Discussion held with patient as well as concerning prognosis, secondary stroke prevention, and plan of care for stroke recovery. Smoking cessation conversation held with as well as patient. In total 5 minutes was spent on the importance of the going through smoking cessation as well as the maintaining his cessation. COPD: Continue medications as ordered. Supplemental O2 as needed. Monitor for signs symptoms of exacerbation. Respiratory therapy consult. CHF: Monitor for CHF exacerbation. Daily weights, nursing notify for weight gain greater than 5 pounds in 1 week. Lifestyle modifications discussed (weight loss, tobacco cessation, decrease sodium intake). Continue loop diuretics, beta-seven and BECCA inhibitor as tolerated. Hypertension: Continue medication. Monitor blood pressure and adjust medications as needed for normotension. Hold for hypotension Diabetes type 2: Patient currently on tube feeds. Will monitor blood glucose and continue sliding scale insulin and newly started metformin. Adjust medications as needed for normal glycemia. Dysphagia: Continue n.p.o. with tube feeds. [employer]CIAL OFFICER to monitor and advance diet as able and perform FEES, MBSS or e-stim as needed. Right foot drop: Continue therapy. Monitor foot placement to avoid injury. Seems improved today. May need to order custom AFO, will make decision as we work with him. Right shoulder subluxation: Continue support right upper extremity with either sling and/or arm tray in the wheelchair. Monitor for worsening continue strengthening and e-stim as needed for improvement. No current signs of shoulder-hand syndrome continue to monitor for any signs or symptoms. Right facial droop: Continue therapy for strengthening exercises to improve facial strength. E-stim as needed. Dysarthria: Continue CHIEF FIN[employer]CIAL OFFICER to improve ability to speak clearly by strengthening and improving control muscles, improving breath support and slowing rate of speech. ADL dysfunction: OT will work on improving ability to perform ADLs (including assistive devices) to increase independence and decrease caregiver burden and improve functional transfers and mobility training. Difficulty walking: PT will work on gait training and proper use of assistive devices and advance as appropriate to use of stairs and outside ambulation on uneven surfaces. Unsteadiness on feet: PT will work on improving static and dynamic sitting and standing balance as well as proper use of assistive devices to decrease risk of falls. Abnormality of gait: PT will work to improve safety and efficiency of gait through neuromotor training and gait training along with instruction on proper use of assistive devices. Muscle weakness: PT & OT will work on strengthening exercises to improve functional strength including mixture of closed and open kinetic chain exercises. Debility: PT & OT will work on improving overall functional status to improve participation with ADLs, mobility and social involvement. Fatigue: PT & OT will work on improving endurance through aerobic exercises and therapeutic activity while monitoring patients tolerance for activity and vital signs as needed. DVT ppx: Heparin Pain: Continue physical modalities in therapy and pain medications as needed to achieve functional pain control. Sleep: Monitor and address as needed. Bowel: Monitor and address as needed. Appetite: Monitor and address as needed. Discharge planning: Pending therapy progress and care plan meeting. Will co ntinue discussion with therapy team, SW, patient and family. Restrictions/ Precautions: Falls, aspiration, right hemiparesis WB status: FWB Functional Hx: ADLs: Independent Cognition: Independent Mobility: No AD Barriers to Discharge: Decreased mobility and ability to perform self care, balance deficits, weakness Estimated Length of Stay: 1421 days Discharge Destination: Home with family
[2019-08-29] MEDS: metFORMIN 500 MG TAB FEEDTUBE SCH (18:54)
[2019-08-30] MEDS: HEPARIN 5,000 UNIT/1 ML VIAL SUB-Q SCH ×3 (06:15→22:43)
[2019-08-30] MEDS: BUDESONIDE 0.5 MG/2 ML NEBU IH SCH ×2 (07:59→22:33)
[2019-08-30] MEDS: ARFORMOTEROL 15 MCG/2 ML NEBU IH SCH ×2 (07:59→22:33)
[2019-08-30] MEDS: INSULIN LISPRO 100 UNIT/ML SUB-Q SCH ×3 (08:44→16:55)
[2019-08-30] MEDS: predniSONE 5 MG/5 ML ORAL LIQUID FEEDTUBE SCH (08:46)
[2019-08-30] MEDS: LANSOPRAZOLE 30 MG SOLUTAB FEEDTUBE SCH (08:47)
[2019-08-30] MEDS: CLOPIDOGREL 75 MG TAB FEEDTUBE SCH (08:47)
[2019-08-30] MEDS: FUROSEMIDE 40 MG TAB FEEDTUBE SCH (08:47)
[2019-08-30] MEDS: metFORMIN 500 MG TAB FEEDTUBE SCH ×2 (08:47→16:46)
[2019-08-30] MEDS: ASPIRIN 81 MG TAB CHEW FEEDTUBE SCH (08:47)
[2019-08-30] MEDS: LISINOPRIL 5 MG TAB FEEDTUBE SCH (16:20)
[2019-08-30] MEDS: carvediloL 6.25 MG TAB FEEDTUBE SCH ×2 (16:21→22:42)
[2019-08-30] MEDS: MODAFINIL 100 MG TAB FEEDTUBE SCH (16:45)
--- NOTE | 2019-08-30 21:33 | IRU Plan of Care ---
Interdisciplinary Plan of Care - IP IRU INTERDISCIPLINARY PLAN: [facility] Inpatient Rehab Unit Plan of Care IRU Interdisciplinary Care Plan Start: 08/27/19 13:50 Freq: Admission then PRN Status: Active Protocol: Document 08/30/19 19:33 TH (Rec: 08/30/19 19:42 TH [id number]) Interdisciplinary Problem List Interdisciplinary Problem List Interdisciplinary Problem List Impaired Eating/Swallowing, Query Text:Answers will Trigger Problems Impaired Bathing/Grooming, and Outcomes on Worklist. Impaired Dressing,Impaired Mobility,Impaired Transfers, Impaired Toileting,Impaired Expression,Impaired Problem Solving,Knowledge Deficits, Discharge Concerns,Impaired Safety,Medications Education, Diabetes Education,Impaired Oxygenation,Impaired Cardiovascular System IRU Interdisciplinary Care Plan Therapy Services Therapy Services Will Include: Physical Therapy,Occupational Query Text:Patient will be seen for a Therapy,Speech Therapy minimum of 3 hours of daily therapy 5 out of 7 days a week. Therapy intensity may be adjusted within a 7 consecutive day period to effectively serve the individual needs of the patient. Treatment Frequency/Intensity/Duration Treatment Frequency 5 days per week Treatment Intensity 3 hours per day Treatment Duration 14-21 days Problem Area: Eating/Swallowing Eating/Swallowing Outcomes Consume Least Restrictive Diet ,Improve Labial ROM/Strength Eating/Swallowing Interventions Dysphagia Training, Compensatory Strategies, Neuromuscular Re-Education, Patient/Caregiver Education Problem Area: Bathing/Grooming Bathing/Grooming Outcomes Improve [place] w/ Grooming,Improve [place] w/ Bathing Bathing/Grooming Interventions ADL Training,Use of Assistive Devices,Therapeutic Exercise, Therapeutic Activity, Neuromuscular Re-Education, Balance Work,Activity Tolerance Work,Patient/ Caregiver Education Problem Area: Dressing Dressing Outcomes Improve [place] w/ UB Dressing,Improve [place] w/ LB Dressing Dressing Interventions ADL Training,Use of Assistive Devices,Neuromuscular Re- Education,Therapeutic Exercise ,Balance Work,Modalities, Patient/Caregiver Education Problem Area: Mobility Mobility Outcomes Improve [place] w/ Bed Mobility,Improve [place] w/ Ambulation,Improve [place] w/ Stairs/Curb, Improve [place] w/ Wheelchair Mobility Interventions Therapeutic Exercise, Neuromuscular Re-Ed.,Visual/ Perceptual Training,Activity Tolerance Work,Modalities,Use of Assistive Devices,Patient/ Caregiver Education,Bed Mobility Work,Gait Training, Household Mobility Work,W/C Mobility Work Problem Area: Transfers Transfers Outcomes Improve [place] w/ Toilet Transfers,Improve [place] w/ Tub/Shower Transfers Transfers Interventions Transfer Training,Therapeutic Exercise,Neuromuscular Re- Education,Visual/Perceptual Training,Activity Tolerance Work,Modalities,Use of Assistive Devices,Patient/ Caregiver Education Problem Area: Bowel/Bladder Managment Bowel/Bladder Outcomes Bowel/Bladder Interventions Problem Area: Toileting Toileting Outcomes Improve [place] w/ Toileting Toileting Interventions ADL Training,Balance Work,Use of Assistive Devices,Patient/ Caregiver Education Problem Area: Nutrition Nutrition Outcomes Nutrition Interventions Problem Area: Comprehension Comprehension Outcomes Comprehension Interventions Problem Area: Expression Expression Outcomes Expression Interventions Problem Area: Problem Solving Problem Solving Outcomes Improve Problem Solving Problem Solving Interventions Cognitive Training,Visual/ Perceptual Training,Safety Education,Patient/Caregiver Education Problem Area: Memory Memory Outcomes Memory Interventions Problem Area: Pain Management Pain Management Outcomes Pain Management Interventions Problem Area: Knowledge Deficits Knowledge Deficits Outcomes Verbalize Understanding of S/S of Stroke Knowledge Deficits Interventions Disease/Injury/Sx. Intervention Education,Safety Education Problem Area: Skin/Tissue Integrity Skin/Tissue Integrity Outcomes Skin/Tissue Integrity Interventions Problem Area: Social Interaction Social Interaction Outcomes Social Interaction Interventions Problem Area: Adjustment to Disability Adjustment to Disability Outcomes Adjustment to Disability Interventions Problem Area: Discharge Concerns Discharge Concerns Outcomes Discharge w/ Necessary Equipment,Have Home Health/ Outpatient Services Discharge Concerns Interventions Discharge Planning,Equipment Assessment, Acquisition and Placement,Family/Caregiver Conference,Patient/Family/ Caregiver Counseling,Family/ Caregiver Training Problem Area: Community Reintegration Community Reintegration Outcomes Demonstrate Understanding of Community Resources,Able to Re -Enter the Community Community Reintegration Interventions Activity Tolerance Work, Leisure Activity Problem Area: Home Management Home Management Outcomes Improve [place] w/ Home Management Home Management Interventions Meal Preparation,Clothing Care ,Activity Tolerance Work, Leisure Skills Development, House Cleaning,Shopping, Patient/Caregiver Education Problem Area: Safety Safety Outcomes Provide Safe Environment, Perform Selfcare Safely, Demonstrate Good Safety w/ Transfers/Mobility Safety Interventions Identify Fall Risk,[place] Pt. to Environment,Reduce Environmental Hazards,Neuro Check Assessment,Implement Mechanical Devices, i.e. Chair Alarm (Post Fall Update),Re- Educate Patient/Caregiver for Safety (Post Fall Update) Problem Area: Medication Education Medication Education Outcomes Patient/Caregiver will Verbalize Understanding of Medications Medication Education Interventions Explain Administration/Side Effects/Interactions Problem Area: Diabetes Education Diabetes Education Outcomes Demonstrate Knowledge of Resources Availlable in Diabetic Ed. Folder Diabetes Education Interventions Give Pt. Diabetes Education Folder,Discuss Pathophysiology of Diabetes Problem Area: Oxygenation Oxygenation Outcomes Maintain Adequate Oxygenation Oxygenation Interventions Assess Respiratory Status, Encourage Coughing and Deep Breathing Problem Area: Cardiovascular Cardiovascular Outcomes Maintain or Improve Cardiovascular Status Cardiovascular Interventions Assess Vital Signs at least Every 4 hours Physician Only Medical Prognosis and Rehabilitation Potential (Completed by Physician) Good rehab potential, fair medical prognosis This plan of care has been developed based on the findings from the pre-a dmission assessment, post admission physician evaluation, information gathered from the assessments from all therapy disciplines and other pertinent clinicians. The plan of care has been reviewed and discussed in collaboration with the interdisciplinary team. The plan of care will be reviewed and updated at least weekly.
[2019-08-31] MEDS: HEPARIN 5,000 UNIT/1 ML VIAL SUB-Q SCH ×3 (06:06→23:19)
[2019-08-31] MEDS: LANSOPRAZOLE 30 MG SOLUTAB FEEDTUBE SCH (07:55)
[2019-08-31] MEDS: ASPIRIN 81 MG TAB CHEW FEEDTUBE SCH (07:55)
[2019-08-31] MEDS: metFORMIN 500 MG TAB FEEDTUBE SCH ×2 (07:56→16:39)
[2019-08-31] MEDS: CLOPIDOGREL 75 MG TAB FEEDTUBE SCH (07:56)
[2019-08-31] MEDS: FUROSEMIDE 40 MG TAB FEEDTUBE SCH (07:56)
[2019-08-31] MEDS: INSULIN LISPRO 100 UNIT/ML SUB-Q SCH ×3 (08:47→16:39)
[2019-08-31] MEDS: LISINOPRIL 5 MG TAB FEEDTUBE SCH (08:47)
[2019-08-31] MEDS: carvediloL 6.25 MG TAB FEEDTUBE SCH ×2 (08:48→23:18)
[2019-08-31] MEDS: predniSONE 5 MG/5 ML ORAL LIQUID FEEDTUBE SCH (08:49)
[2019-08-31] MEDS: MODAFINIL 100 MG TAB FEEDTUBE SCH (09:57)
[2019-08-31] MEDS ORDERED: predniSONE 20 MG TAB PO ONE (10:00)
[2019-08-31] MEDS: ARFORMOTEROL 15 MCG/2 ML NEBU IH SCH ×2 (20:18→20:39)
[2019-08-31] MEDS: BUDESONIDE 0.5 MG/2 ML NEBU IH SCH ×2 (20:19→20:39)
[2019-09-01] MEDS: HEPARIN 5,000 UNIT/1 ML VIAL SUB-Q SCH ×3 (06:29→21:26)
[2019-09-01] MEDS: INSULIN LISPRO 100 UNIT/ML SUB-Q SCH ×3 (07:30→17:57)
[2019-09-01 07:53] LABS: Hematocrit 39.9 % (35.5-45.6); Hemoglobin 12.9 gm/dl (11.8-15.2); Mean Corpuscular HGB Conc 32 % (32-34); Mean Corpuscular Volume 90 fl (84-94); Platelet Count 206 K/mm3 (140-440); Red Blood Count 4.45 M/mm3 (3.65-5.03); Red Cell Distribution Width 12.4 % (13.2-15.2)
[2019-09-01 08:16] LABS: BUN/Creatinine Ratio 28; Blood Urea Nitrogen 22 mg/dL (9-20); Calcium 9.5 mg/dL (8.4-10.2); Hemolysis Index 6
[2019-09-01] MEDS: BUDESONIDE 0.5 MG/2 ML NEBU IH SCH ×2 (08:19→20:03)
[2019-09-01] MEDS: ARFORMOTEROL 15 MCG/2 ML NEBU IH SCH ×2 (08:19→20:03)
[2019-09-01] MEDS: LISINOPRIL 5 MG TAB FEEDTUBE SCH (09:13)
[2019-09-01] MEDS: carvediloL 6.25 MG TAB FEEDTUBE SCH ×2 (09:16→21:26)
[2019-09-01] MEDS: ASPIRIN 81 MG TAB CHEW FEEDTUBE SCH (09:17)
[2019-09-01] MEDS: FUROSEMIDE 40 MG TAB FEEDTUBE SCH (09:17)
[2019-09-01] MEDS: metFORMIN 500 MG TAB FEEDTUBE SCH ×2 (09:17→17:59)
[2019-09-01] MEDS: CLOPIDOGREL 75 MG TAB FEEDTUBE SCH (09:17)
[2019-09-01] MEDS: LANSOPRAZOLE 30 MG SOLUTAB FEEDTUBE SCH (09:17)
--- NOTE | 2019-09-01 09:53 | Progress Note ---
Subjective Date of service: 09/01/19 Principal diagnosis: CVA with right nondominant hemiplegia Interval history: 63-year-old male who presented to the ER 08/10/19 after experiencing a right-sided facial droop with slurred speech that started the night before. CT head was taken and showed a left MCA infarct. tPA was not administered as the patient was outside the window. Neurology was consulted. CTA head and neck were also ordered, no stenosis seen in the right or left carotid, no significant stenosis noted in the vasculature of the head except in the left M2 branch near the origin. Patient was placed on appropriate secondary stroke prevention medication with DAPT. While on the espinosa he was noted upon examination to have respiratory distress along with diffuse wheezing. Suctioning was performed and food products were removed from his airway. He was transferred to the ICU and intubated. Stat chest CT was completed but did not reveal any plugging or obstructions. Patient was started on IV antibiotics for presumed aspiration pneumonia. He was seen by speech therapy and noted to have severe dysphagia. Initially he had a NG tube placed which was dislodged. Underwent MBS which showed stephani aspiration and oral pharyngeal dysphagia. He was then scheduled for PEG tube placement which occurred on August 21, 2019 and was performed by Dr. Gaudencio Gonzales. The tube is traction pull and once it is no longer needed may be pulled after [address] weeks of [address] in [address]. Unfortunately it appears he may continue to have need for this. Currently is n.p.o. with ice chips after appropriate oral care, will continue n.p.o. and only start ice chips once speech therapy feels this is safe. Patient is left-hand dominant and has severe right-sided hemiparesis. Fortunately for him he does have some recovery of right-sided strength whereas before he was completely flaccid per outside records. Continues to have right foot drop. Echocardiogram on August 11, 2019 showed an EF of 25 to 30% with mildly dilated left ventricle and a grade 2 diastolic dysfunction. There is also mention of an abnormal stress test that the outside hospital with an incomplete date that appears to show an abnormal perfusion scan demonstrating a large defect of severe intensity in the basal, mid and apical anterior wall. Cardiology recommended a ischemic work-up via left heart cath as an outpatient once he is recovered. There was question as to whether the patient has obstructive sleep apnea and outpatient follow-up was also recommended for this to perform a sleep study. Patient was not transferred on CPAP which was apparently discontinued during his stay in the outside hospital. He was also found to have type 2 diabetes with an A1c of 6.9. New diagnoses for this patient this admission include CVA, CHF, pulmonary hypertension, diabetes type 2, hypertension. Previously patient had only been diagnosed with COPD and is a former smoker having quit approximately 1 year ago. Interval History: Patient is participating in therapy and making reasonable progress. Taking rest breaks as needed. +BM. Denies pain, palpitations, dyspnea, cough, N/V, weakness, or joint pain. CVA with right nondominant hemiparesis: Tolerating secondary stroke prevention without signs of bleeding. No signs of worsening deficits due to CVA. No shoulder-hand syndrome appreciated. COPD: Continue inhalers. No issues with dyspnea today. Dehydration: Start gentle IV fluids overnight for 1 L. Continue to monitor. May also increase water flushes. Blood pressure continues to be on the lower side. Dyspnea on exertion: No issues today. Patient is breathing well. Lungs sound clear. Continue to monitor for any issues and remind the patient to continue breathing when doing therapy. CHF: Seems to be well controlled, monitor fluid status and edema along with daily weights. Continue medications and adjust as needed Hypertension: Blood pressures been on the lower side. Medications are being held. Continue to monitor Diabetes type 2: We will add metformin and discontinue Lantus. Continue sliding scale. May also be elevated due to steroid. Continue to monitor Dysphagia: Continue n.p.o. until cleared by speech for being able to tolerate oral intake. For unknown reason, bolus feeds were not started even though nursing was notified on Sunday. Called back over the weekend and noticed this and asked them to restart bolus feeds. He is getting bolus feeding now. Continue to monitor Right foot drop: On initial exam patient was unable to dorsiflex his right foot however today he has the ability to do this. We will continue to monitor to see if this continues or if this is an intermittent issue. For the time being will hold off on AFO. Dysarthria: Stable at this point. Continue work with speech in order to improve. Right shoulder subluxation: Stable, reminded patient to continue to elevate the arm and to monitor it. No signs of shoulder-hand syndrome currently. All records, vitals, labs and medications were reviewed. No other issues per patient, nursing or therapy. Objective - Exam Narrative Exam: MUSCULOSKELETAL SPECIALTY EXAM CONSTITUTIONAL: Well developed, well nourished, appropriately groomed. LEFT hand dominant. RESPIRATORY: Clear to auscultation bilaterally, no increased work of breathing CARDIOVASCULAR: Regular Rate/ Rhythm, no swelling, edema or tenderness in BUE or BLE. All extremities warm. GI: + bowel sounds, soft, NTTP, nondistended. PEG tube in place INTEGUMENTARY: Normal, no lesion, rash, masses or bruising noted in extremities. MUSCULOSKELETAL: Right-sided hemiparesis with slight shoulder sublux, otherwise BUE and BLE normal without defect, crepitus, subluxation, effusion, arthritic changes or TTP. SA EF WE EE FF FA HF KE ADF EHL APF R 0/5 2/5 0/5 0/5 0/5 0/5 4-/5 4-/5 3/5 3/5 3/5 L 5/5 5/5 5/5 5/5 5/5 5/5 5/5 5/5 5/5 5/5 5/5 ROM decreased on right Tone increased on right upper extremity, normal elsewhere NEURO: CN VII : Right facial droop CN IX, X : Palate/uvula elevate midline, phonation abnormal CN XI : Absent shoulder shrug on right, normal head rotation CN XII : Tongue protrudes slightly right Sensation intact in all extremities without extinction. No tremor noted in 4 extremities. Naming and repetition intact. Follows 2 step commands. Aphasia not appreciated Dysarthria present Dysphagia present Neglect not appreciated POSTURE and GAIT: Sitting posture good. Balance and gait reasonable with cane. Slowed jono. PSYCH: Alert, oriented x3, affect appears euthymic. Insight appears intact. - Constitutional Vitals: Vital Signs - 12hr 09/01/19 09/01/19 05:26 07:17 Temperature 97.4 F L 97.9 F Pulse Rate 72 73 Respiratory 16 18 Rate Blood Pressure 106/69 106/74 O2 Sat by Pulse 94 98 Oximetry - Allied health notes Allied health notes reviewed: nursing, PT, ST, OT FIMS assessment as documented by PT/OT/ST: Social interaction/Memory/Problem solving Social Interaction FIM Score 6. Mod. [place] (Mostly appropriate. May need meds. No supv.) Memory FIM Score 5. Supervision (Needs cueing <10%, stressful/ unfamiliar situations.) Problem Solving FIM Score 5. Supervision (Needs cueing <10% to solve routine problems.) Transfers Mode of Locomotion: Wheelchair Bed/Chair/Wheelchair Transfers 3. Moderate Assistance (Patient = 50% or more. FIM Score Some lifting.) Locomotion- walk/wheelchair Ambulation Distance 10 - Labs CBC & Chem 7: 09/01/19 07:37 09/01/19 07:37 Labs: Laboratory Results - last 72 hr 08/29/19 08/29/19 08/29/19 11:13 16:23 22:26 WBC RBC Hgb Hct MCV MCH MCHC RDW Plt Count Sodium Potassium Chloride Carbon Dioxide Anion Gap BUN Creatinine Estimated GFR BUN/Creatinine Ratio Glucose POC Glucose 195 H 93 124 H Calcium 08/30/19 08/30/19 08/30/19 07:43 11:38 16:15 WBC RBC Hgb Hct MCV MCH MCHC RDW Plt Count Sodium Potassium Chloride Carbon Dioxide Anion Gap BUN Creatinine Estimated GFR BUN/Creatinine Ratio Glucose POC Glucose 158 H 132 H 212 H Calcium 08/30/19 08/31/19 08/31/19 22:57 05:38 07:39 WBC RBC Hgb Hct MCV MCH MCHC RDW Plt Count Sodium Potassium Chloride Carbon Dioxide Anion Gap BUN Creatinine Estimated GFR BUN/Creatinine Ratio Glucose POC Glucose 142 H 90 91 Calcium 08/31/19 08/31/19 08/31/19 12:05 16:31 22:55 WBC RBC Hgb Hct MCV MCH MCHC RDW Plt Count Sodium Potassium Chloride Carbon Dioxide Anion Gap BUN Creatinine Estimated GFR BUN/Creatinine Ratio Glucose POC Glucose 148 H 156 H 163 H Calcium 09/01/19 09/01/19 09/01/19 07:30 07:37 07:37 WBC 7.6 RBC 4.45 Hgb 12.9 Hct 39.9 MCV 90 MCH 29 MCHC 32 RDW 12.4 L Plt Count 206 Sodium 138 Potassium 4.3 Chloride 100.0 Carbon Dioxide 26 Anion Gap 16 BUN 22 H Creatinine 0.8 Estimated GFR > 60 BUN/Creatinine Ratio 28 Glucose 103 H POC Glucose 99 Calcium 9.5 Assessment and Plan CVA with right nondominant hemiparesis: Continue secondary stroke protocol with DAPT. Continue to monitor for recurrent CVA, post stroke depression, shoulder- hand syndrome. Monitor skin for any new wounds and monitor positioning to reduce chance of new ones. No driving until cleared by neurology, follow-up with neurology after discharge. Discussion held with patient as well as concerning prognosis, secondary stroke prevention, and plan of care for stroke recovery. Smoking cessation conversation held with as well as patient on admission COPD: Continue medications as ordered. Supplemental O2 as needed. Monitor for signs symptoms of exacerbation. Respiratory therapy consult. Dehydration: Gentle IV fluids monitor. Have already increased tube feed flushes. Continue to monitor CHF: Monitor for CHF exacerbation. Daily weights, nursing notify for weight gain greater than 5 pounds in 1 week. Lifestyle modifications discussed (weight loss, tobacco cessation, decrease sodium intake). Continue loop diuretics, beta-seven and BECCA inhibitor as tolerated. Daily weights not being performed. Addressed with nursing. Hypertension: Continue medication. Monitor blood pressure and adjust medications as needed for normotension. Hold for hypotension Diabetes type 2: Patient currently on tube feeds. Will monitor blood glucose an d continue sliding scale insulin and newly started metformin. Adjust medications as needed for normal glycemia. Dysphagia: Continue n.p.o. with tube feeds. PASTORAL WORKER to monitor and advance diet as able and perform FEES, MBSS or e-stim as needed. Right foot drop: Continue therapy. Monitor foot placement to avoid injury. Seems improved today. May need to order custom AFO, will make decision as we work with him. Right shoulder subluxation: Continue support right upper extremity with either sling and/or arm tray in the wheelchair. Monitor for worsening continue strengthening and e-stim as needed for improvement. No current signs of shoulder-hand syndrome continue to monitor for any signs or symptoms. Right facial droop: Continue therapy for strengthening exercises to improve facial strength. E-stim as needed. Dysarthria: Continue PASTORAL WORKER to improve ability to speak clearly by strengthening and improving control muscles, improving breath support and slowing rate of speech. ADL dysfunction: OT will work on improving ability to perform ADLs (including assistive devices) to increase independence and decrease caregiver burden and improve functional transfers and mobility training. Difficulty walking: PT will work on gait training and proper use of assistive devices and advance as appropriate to use of stairs and outside ambulation on uneven surfaces. Unsteadiness on feet: PT will work on improving static and dynamic sitting and standing balance as well as proper use of assistive devices to decrease risk of falls. Abnormality of gait: PT will work to improve safety and efficiency of gait through neuromotor training and gait training along with instruction on proper use of assistive devices. Muscle weakness: PT & OT will work on strengthening exercises to improve functio nal strength including mixture of closed and open kinetic chain exercises. Debility: PT & OT will work on improving overall functional status to improve participation with ADLs, mobility and social involvement. Fatigue: PT & OT will work on improving endurance through aerobic exercises and therapeutic activity while monitoring patients tolerance for activity and vital signs as needed. DVT ppx: Heparin Pain: Continue physical modalities in therapy and pain medications as needed to achieve functional pain control. Sleep: Monitor and address as needed. Bowel: Monitor and address as needed. Appetite: Monitor and address as needed. Discharge planning: Pending therapy progress and care plan meeting. Will continue discussion with therapy team, SW, patient and family. Restrictions/ Precautions: Falls, aspiration, right hemiparesis WB status: FWB Functional Hx: ADLs: Independent Cognition: Independent Mobility: No AD Barriers to Discharge: Decreased mobility and ability to perform self care, balance deficits, weakness Estimated Length of Stay: 1421 days Discharge Destination: Home with family
[2019-09-01] MEDS ORDERED: SODIUM CHLORIDE 0.9% 1000 ML 1,000 ML IV SCH (10:00)
[2019-09-01] MEDS ORDERED: predniSONE 10 MG TAB PO NR (12:00)
[2019-09-01] MEDS: predniSONE 5 MG/5 ML ORAL LIQUID FEEDTUBE SCH (12:52)
[2019-09-01] MEDS: MODAFINIL 100 MG TAB FEEDTUBE SCH (12:53)
[2019-09-02] MEDS: HEPARIN 5,000 UNIT/1 ML VIAL SUB-Q SCH ×3 (05:14→21:21)
[2019-09-02] MEDS: BUDESONIDE 0.5 MG/2 ML NEBU IH SCH ×2 (07:41→20:18)
[2019-09-02] MEDS: ARFORMOTEROL 15 MCG/2 ML NEBU IH SCH ×2 (07:41→20:18)
[2019-09-02] MEDS: CLOPIDOGREL 75 MG TAB FEEDTUBE SCH (08:49)
[2019-09-02] MEDS: metFORMIN 500 MG TAB FEEDTUBE SCH ×2 (08:50→18:26)
[2019-09-02] MEDS: LANSOPRAZOLE 30 MG SOLUTAB FEEDTUBE SCH (08:50)
[2019-09-02] MEDS: FUROSEMIDE 40 MG TAB FEEDTUBE SCH (08:50)
[2019-09-02] MEDS: ASPIRIN 81 MG TAB CHEW FEEDTUBE SCH (08:50)
[2019-09-02] MEDS: INSULIN LISPRO 100 UNIT/ML SUB-Q SCH ×3 (08:53→18:25)
[2019-09-02] MEDS: LISINOPRIL 5 MG TAB FEEDTUBE SCH (08:55)
[2019-09-02] MEDS: carvediloL 6.25 MG TAB FEEDTUBE SCH ×2 (08:55→21:20)
--- NOTE | 2019-09-02 09:27 | Progress Note ---
Subjective Date of service: 09/02/19 Principal diagnosis: CVA with right nondominant hemiplegia Interval history: 63-year-old male who presented to the ER 08/10/19 after experiencing a right-sided facial droop with slurred speech that started the night before. CT head was taken and showed a left MCA infarct. tPA was not administered as the patient was outside the window. Neurology was consulted. CTA head and neck were also ordered, no stenosis seen in the right or left carotid, no significant stenosis noted in the vasculature of the head except in the left M2 branch near the origin. Patient was placed on appropriate secondary stroke prevention medication with DAPT. While on the espinosa he was noted upon examination to have respiratory distress along with diffuse wheezing. Suctioning was performed and food products were removed from his airway. He was transferred to the ICU and intubated. Stat chest CT was completed but did not reveal any plugging or obstructions. Patient was started on IV antibiotics for presumed aspiration pneumonia. He was seen by speech therapy and noted to have severe dysphagia. Initially he had a NG tube placed which was dislodged. Underwent MBS which showed stephani aspiration and oral pharyngeal dysphagia. He was then scheduled for PEG tube placement which occurred on August 21, 2019 and was performed by Dr. Gaudencio Gonzales. The tube is traction pull and once it is no longer needed may be pulled after [address] weeks of being in [address]. Unfortunately it appears he may continue to have need for this. Currently is n.p.o. with ice chips after appropriate oral care, will continue n.p.o. and only start ice chips once speech therapy feels this is safe. Patient is left-hand dominant and has severe right-sided hemiparesis. Fortunately for him he does have some recovery of right-sided strength whereas before he was completely flaccid per outside records. Continues to have right foot drop. Echocardiogram on August 11, 2019 showed an EF of 25 to 30% with mildly dilated left ventricle and a grade 2 diastolic dysfunction. There is also mention of an abnormal stress test that the outside hospital with an incomplete date that appears to show an abnormal perfusion scan demonstrating a large defect of severe intensity in the basal, mid and apical anterior wall. Cardiology recommended a ischemic work-up via left heart cath as an outpatient once he is recovered. There was question as to whether the patient has obstructive sleep apnea and outpatient follow-up was also recommended for this to perform a sleep study. Patient was not transferred on CPAP which was apparently discontinued during his stay in the outside hospital. He was also found to have type 2 diabetes with an A1c of 6.9. New diagnoses for this patient this admission include CVA, CHF, pulmonary hypertension, diabetes type 2, hypertension. Previously patient had only been diagnosed with COPD and is a former smoker having quit approximately 1 year ago. Interval History: Patient is participating in therapy and making reasonable progress. Taking rest breaks as needed. +BM. Denies pain, palpitations, dyspnea, cough, N/V, weakness, or joint pain. CVA with right nondominant hemiparesis: Tolerating secondary stroke prevention without signs of bleeding. No signs of worsening deficits due to CVA. No shoulder-hand syndrome appreciated. COPD: Continue inhalers. No issues with dyspnea today. Dehydration: Tolerated IV fluids. Continue to monitor. May also increase water flushes. Blood pressure Slightly improved after IV fluids. Dyspnea on exertion: No issues today. Patient is breathing well. Lungs sound clear. Continue to monitor for any issues and remind the patient to continue breathing when doing therapy. CHF: Seems to be well controlled, monitor fluid status and edema along with daily weights. Continue medications and adjust as needed Hypertension: Blood pressures been on the lower side slightly improved after IVF. Medications are being held. Continue to monitor Diabetes type 2: We will add metformin and discontinue Lantus. Continue sliding scale. May also be elevated due to steroid. Continue to monitor Dysphagia: Continue n.p.o. until cleared by speech for being able to tolerate oral intake. He is getting bolus feeding now. Continue to monitor Right foot drop: On initial exam patient was unable to dorsiflex his right foot however he has the ability to do this a little more, worse in supine position. We will continue to monitor to see if this continues or if this is an intermittent issue. For the time being will hold off on AFO. Dysarthria: Stable at this point. Continue work with speech in order to improve. Right shoulder subluxation: Stable, reminded patient to continue to elevate the arm and to monitor it. No signs of shoulder-hand syndrome currently. All records, vitals, labs and medications were reviewed. No other issues per patient, nursing or therapy. Objective - Exam Narrative Exam: MUSCULOSKELETAL SPECIALTY EXAM CONSTITUTIONAL: Well developed, well nourished, appropriately groomed. LEFT hand dominant. RESPIRATORY: Clear to auscultation bilaterally, no increased work of breathing CARDIOVASCULAR: Regular Rate/ Rhythm, no swelling, edema or tenderness in BUE or BLE. All extremities warm. GI: + bowel sounds, soft, NTTP, nondistended. PEG tube in place INTEGUMENTARY: Normal, no lesion, rash, masses or bruising noted in extremities. MUSCULOSKELETAL: Right-sided hemiparesis with slight shoulder sublux, otherwise BUE and BLE normal without defect, crepitus, subluxation, effusion, arthritic changes or TTP. SA EF WE EE FF FA HF KE ADF EHL APF R 0/5 2/5 0/5 0/5 0/5 0/5 4-/5 4-/5 3/5 3/5 3/5 L 5/5 5/5 5/5 5/5 5/5 5/5 5/5 5/5 5/5 5/5 5/5 ROM decreased on right Tone increased on right upper extremity, normal elsewhere NEURO: CN VII : Right facial droop CN IX, X : Palate/uvula elevate midline, phonation abnormal CN XI : Absent shoulder shrug on right, normal head rotation CN XII : Tongue protrudes slightly right Sensation intact in all extremities without extinction. No tremor noted in 4 extremities. Naming and repetition intact. Follows 2 step commands. Aphasia not appreciated Dysarthria present Dysphagia present Neglect not appreciated POSTURE and GAIT: Sitting posture good. Balance and gait reasonable with cane. Slowed jono. PSYCH: Alert, oriented x3, affect appears euthymic. Insight appears intact. - Constitutional Vitals: Vital Signs - 12hr 09/02/19 09/02/19 09/02/19 01:00 05:01 07:37 Temperature 97.1 F L 97.3 F L Pulse Rate 66 63 Pulse Rate [ Anterior Bilateral Throughout] Respiratory 18 18 18 Rate Respiratory Rate [Anterior Bilateral Throughout] Blood Pressure 112/73 99/61 [Right] O2 Sat by Pulse 96 98 Oximetry 09/02/19 07:42 Temperature Pulse Rate Pulse Rate [ 63 Anterior Bilateral Throughout] Respiratory Rate Respiratory 18 Rate [Anterior Bilateral Throughout] Blood Pressure [Right] O2 Sat by Pulse 97 Oximetry - Allied health notes Allied health notes reviewed: nursing, PT, ST, OT FIMS assessment as documented by PT/OT/ST: Social interaction/Memory/Problem solving Social Interaction FIM Score 4. Minimal Assistance (Interacts appropriately 75-90%.) Memory FIM Score 4. Minimal Assistance (Recognizes and remembers 75-90%.) Problem Solving FIM Score 4. Minimal Assistance (Solves routine problems 75-90%.) Transfers Mode of Locomotion: Wheelchair Bed/Chair/Wheelchair Transfers 3. Moderate Assistance (Patient = 50% or more. FIM Score Some lifting.) Locomotion- walk/wheelchair Ambulation Distance 10 - Labs CBC & Chem 7: 09/01/19 07:37 09/01/19 07:37 Labs: Laboratory Results - last 72 hr 08/30/19 08/30/19 08/30/19 11:38 16:15 22:57 WBC RBC Hgb Hct MCV MCH MCHC RDW Plt Count Sodium Potassium Chloride Carbon Dioxide Anion Gap BUN Creatinine Estimated GFR BUN/Creatinine Ratio Glucose POC Glucose 132 H 212 H 142 H Calcium 08/31/19 08/31/19 08/31/19 05:38 07:39 12:05 WBC RBC Hgb Hct MCV MCH MCHC RDW Plt Count Sodium Potassium Chloride Carbon Dioxide Anion Gap BUN Creatinine Estimated GFR BUN/Creatinine Ratio Glucose POC Glucose 90 91 148 H Calcium 08/31/19 08/31/19 09/01/19 16:31 22:55 07:30 WBC RBC Hgb Hct MCV MCH MCHC RDW Plt Count Sodium Potassium Chloride Carbon Dioxide Anion Gap BUN Creatinine Estimated GFR BUN/Creatinine Ratio Glucose POC Glucose 156 H 163 H 99 Calcium 09/01/19 09/01/19 09/01/19 07:37 07:37 12:00 WBC 7.6 RBC 4.45 Hgb 12.9 Hct 39.9 MCV 90 MCH 29 MCHC 32 RDW 12.4 L Plt Count 206 Sodium 138 Potassium 4.3 Chloride 100.0 Carbon Dioxide 26 Anion Gap 16 BUN 22 H Creatinine 0.8 Estimated GFR > 60 BUN/Creatinine Ratio 28 Glucose 103 H POC Glucose 133 H Calcium 9.5 09/01/19 09/01/19 09/02/19 16:20 21:33 07:50 WBC RBC Hgb Hct MCV MCH MCHC RDW Plt Count Sodium Potassium Chloride Carbon Dioxide Anion Gap BUN Creatinine Estimated GFR BUN/Creatinine Ratio Glucose POC Glucose 158 H 139 H 73 Calcium Assessment and Plan CVA with right nondominant hemiparesis: Continue secondary stroke protocol with DAPT. Continue to monitor for recurrent CVA, post stroke depression, shoulder- hand syndrome. Monitor skin for any new wounds and monitor positioning to reduce chance of new ones. No driving until cleared by neurology, follow-up [facility] neurology after discharge. Discussion held with patient as well as concerning prognosis, secondary stroke prevention, and plan of care for stroke recovery. Smoking cessation conversation held with as well as patient on admission COPD: Continue medications as ordered. Supplemental O2 as needed. Monitor for signs symptoms of exacerbation. Respiratory therapy consult. Dehydration: Gentle IV fluids monitor. Have already increased tube feed flushes. Continue to monitor CHF: Monitor for CHF exacerbation. Daily weights, nursing notify for weight gain greater than 5 pounds in 1 week. Lifestyle modifications discussed (weight loss, tobacco cessation, decrease sodium intake). Continue loop diuretics, beta-seven and BECCA inhibitor as tolerated. Daily weights not being performed. Addressed with nursing. Hypertension: Continue medication. Monitor blood pressure and adjust medications as needed for normotension. Hold for hypotension Diabetes type 2: Patient currently on tube feeds. Will monitor blood glucose and continue sliding scale insulin and newly started metformin. Adjust medications as needed for normal glycemia. Dysphagia: Continue n.p.o. with tube feeds. [employer] to monitor and advance diet as able and perform FEES, MBSS or e-stim as needed. Right foot drop: Continue therapy. Monitor foot placement to avoid injury. Seems improved. May need to order custom AFO, will make decision as we work with him. Right shoulder subluxation: Continue support right upper extremity with either sling and/or arm tray in the wheelchair. Monitor for worsening continue strengthening and e-stim as needed for improvement. No current signs of shoulder-hand syndrome continue to monitor for any signs or symptoms. Right facial droop: Continue therapy for strengthening exercises to improve facial strength. E-stim as needed. Dysarthria: Continue [employer] to improve ability to speak clearly by strengthening and improving control muscles, improving breath support and slowing rate of speech. ADL dysfunction: OT will work on improving ability to perform ADLs (including assistive devices) to increase independence and decrease caregiver burden and improve functional transfers and mobility training. Difficulty walking: PT will work on gait training and proper use of assistive devices and advance as appropriate to use of stairs and outside ambulation on uneven surfaces. Unsteadiness on feet: PT will work on improving static and dynamic sitting and standing balance as well as proper use of assistive devices to decrease risk of falls. Abnormality of gait: PT will work to improve safety and efficiency of gait through neuromotor training and gait training along with instruction on proper use of assistive devices. Muscle weakness: PT & OT will work on strengthening exercises to improve functional strength including mixture of closed and open kinetic chain exercises. Debility: PT & OT will work on improving overall functional status to improve participation with ADLs, mobility and social involvement. Fatigue: PT & OT will work on improving endurance through aerobic exercises and therapeutic activity while monitoring patients tolerance for activity and vital signs as needed. DVT ppx: Heparin Pain: Continue physical modalities in therapy and pain medications as needed to achieve functional pain control. Sleep: Monitor and address as needed. Bowel: Monitor and address as needed. Appetite: Monitor and address as needed. Discharge planning: Pending therapy progress and care plan meeting. Will continue discussion with therapy team, SW, patient and family. Restrictions/ Precautions: Falls, aspiration, right hemiparesis WB status: FWB Functional Hx: ADLs: Independent Cognition: Independent Mobility: No AD Barriers to Discharge: Decreased mobility and ability to perform self care, balance deficits, weakness Estimated Length of Stay: 1421 days Discharge Destination: Home with family
[2019-09-02] MEDS: predniSONE 5 MG/5 ML ORAL LIQUID FEEDTUBE SCH (11:22)
[2019-09-02] MEDS: MODAFINIL 100 MG TAB FEEDTUBE SCH (11:22)
[2019-09-03] MEDS: HEPARIN 5,000 UNIT/1 ML VIAL SUB-Q SCH ×2 (05:34→15:25)
[2019-09-03] MEDS: INSULIN LISPRO 100 UNIT/ML SUB-Q SCH ×3 (07:46→16:47)
[2019-09-03] MEDS: ARFORMOTEROL 15 MCG/2 ML NEBU IH SCH ×2 (08:57→22:28)
[2019-09-03] MEDS: BUDESONIDE 0.5 MG/2 ML NEBU IH SCH ×2 (08:57→22:28)
[2019-09-03] MEDS: LISINOPRIL 5 MG TAB FEEDTUBE SCH (10:20)
[2019-09-03] MEDS: predniSONE 5 MG/5 ML ORAL LIQUID FEEDTUBE SCH (10:35)
[2019-09-03] MEDS: CLOPIDOGREL 75 MG TAB FEEDTUBE SCH (10:36)
[2019-09-03] MEDS: metFORMIN 500 MG TAB FEEDTUBE SCH ×2 (10:36→18:45)
[2019-09-03] MEDS: carvediloL 6.25 MG TAB FEEDTUBE SCH (10:36)
[2019-09-03] MEDS: ASPIRIN 81 MG TAB CHEW FEEDTUBE SCH (10:36)
[2019-09-03] MEDS: LANSOPRAZOLE 30 MG SOLUTAB FEEDTUBE SCH (10:37)
[2019-09-03] MEDS: FUROSEMIDE 40 MG TAB FEEDTUBE SCH (10:37)
--- NOTE | 2019-09-03 11:53 | Progress Note ---
Subjective Date of service: 09/03/19 Principal diagnosis: CVA with right nondominant hemiplegia Interval history: 63-year-old male who presented to the ER 08/10/19 after experiencing a right-sided facial droop with slurred speech that started the night before. CT head was taken and showed a left MCA infarct. tPA was not administered as the patient was outside the window. Neurology was consulted. CTA head and neck were also ordered, no stenosis seen in the right or left carotid, no significant stenosis noted in the vasculature of the head except in the left M2 branch near the origin. Patient was placed on appropriate secondary stroke prevention medication with DAPT. While on the espinosa he was noted upon examination to have respiratory distress along with diffuse wheezing. Suctioning was performed and food products were removed from his airway. He was transferred to the ICU and intubated. Stat chest CT was completed but did not reveal any plugging or obstructions. Patient was started on IV antibiotics for presumed aspiration pneumonia. He was seen by speech therapy and noted to have severe dysphagia. Initially he had a NG tube placed which was dislodged. Underwent MBS which showed stephani aspiration and oral pharyngeal dysphagia. He was then scheduled for PEG tube placement which occurred on August 21, 2019 and was performed by Dr. Gaudencio Gonzales. The tube is traction pull and once it is no longer needed may be pulled after [address] weeks of being in [address]. Unfortunately it appears he may continue to have need for this. Currently is n.p.o. with ice chips after appropriate oral care, will continue n.p.o. and only start ice chips once speech therapy feels this is safe. Patient is left-hand dominant and has severe right-sided hemiparesis. Fortunately for him he does have some recovery of right-sided strength whereas before he was completely flaccid per outside records. Continues to have right foot drop. Echocardiogram on August 11, 2019 showed an EF of 25 to 30% with mildly dilated left ventricle and a grade 2 diastolic dysfunction. There is also mention of an abnormal stress test that the outside hospital with an incomplete date that appears to show an abnormal perfusion scan demonstrating a large defect of severe intensity in the basal, mid and apical anterior wall. Cardiology recommended a ischemic work-up via left heart cath as an outpatient once he is recovered. There was question as to whether the patient has obstructive sleep apnea and outpatient follow-up was also recommended for this to perform a sleep study. Patient was not transferred on CPAP which was apparently discontinued during his stay in the outside hospital. He was also found to have type 2 diabetes with an A1c of 6.9. New diagnoses for this patient this admission include CVA, CHF, pulmonary hypertension, diabetes type 2, hypertension. Previously patient had only been diagnosed with COPD and is a former smoker having quit approximately 1 year ago. Interval History: Patient is participating in therapy and making reasonable progress. Taking rest breaks as needed. -BM. Denies pain, palpitations, dyspnea, cough, N/V, weakness, or joint pain. CVA with right nondominant hemiparesis: Tolerating secondary stroke prevention without signs of bleeding. No signs of worsening deficits due to CVA. No shoulder-hand syndrome appreciated. COPD: Continue inhalers. No issues with dyspnea today. Dehydration: Tolerated IV fluids. Continue to monitor. May also increase water flushes. Blood pressure Slightly improved after IV fluids. Dyspnea on exertion: No issues today. Patient is breathing well. Lungs sound clear. Continue to monitor for any issues and remind the patient to continue breathing when doing therapy. CHF: Seems to be well controlled, monitor fluid status and edema along with daily weights. Continue medications and adjust as needed. Recheck labs Hypertension: Blood pressures been on the lower side slightly improved after IVF. Medications are being held. Continue to monitor Diabetes type 2: We will add metformin and discontinue Lantus. Continue sliding scale. May also be elevated due to steroid. Continue to monitor Dysphagia: Continue n.p.o. until cleared by speech for being able to tolerate oral intake. He is getting bolus feeding now. Continue to monitor Right foot drop: On initial exam patient was unable to dorsiflex his right foot however he has the ability to do this a little more, worse in supine position. We will continue to monitor to see if this continues or if this is an intermittent issue. For the time being will hold off on AFO. Dysarthria: Stable at this point. Continue work with speech in order to improve. Right shoulder subluxation: Stable, reminded patient to continue to elevate the arm and to monitor it. No signs of shoulder-hand syndrome currently. All records, vitals, labs and medications were reviewed. No other issues per patient, nursing or therapy. Objective - Exam Narrative Exam: MUSCULOSKELETAL SPECIALTY EXAM CONSTITUTIONAL: Well developed, well nourished, appropriately groomed. LEFT hand dominant. RESPIRATORY: Clear to auscultation bilaterally, no increased work of breathing CARDIOVASCULAR: Regular Rate/ Rhythm, no swelling, edema or tenderness in BUE or BLE. All extremities warm. GI: + bowel sounds, soft, NTTP, nondistended. PEG tube in place INTEGUMENTARY: Normal, no lesion, rash, masses or bruising noted in extremities. MUSCULOSKELETAL: Right-sided hemiparesis with slight shoulder sublux, otherwise BUE and BLE normal without defect, crepitus, subluxation, effusion, arthritic changes or TTP. SA EF WE EE FF FA HF KE ADF EHL APF R 0/5 2/5 0/5 0/5 0/5 0/5 4-/5 4-/5 3/5 3/5 3/5 L 5/5 5/5 5/5 5/5 5/5 5/5 5/5 5/5 5/5 5/5 5/5 ROM decreased on right Tone increased on right upper extremity, normal elsewhere NEURO: CN VII : Right facial droop CN IX, X : Palate/uvula elevate midline, phonation abnormal CN XI : Absent shoulder shrug on right, normal head rotation CN XII : Tongue protrudes slightly right Sensation intact in all extremities without extinction. No tremor noted in 4 extremities. Naming and repetition intact. Follows 2 step commands. Aphasia not appreciated Dysarthria present Dysphagia present Neglect not appreciated POSTURE and GAIT: Sitting posture good. Balance and gait reasonable with cane. Slowed jono. PSYCH: Alert, oriented x3, affect appears euthymic. Insight appears intact. - Constitutional Vitals: Vital Signs - 12hr 09/03/19 09/03/19 09/03/19 00:27 05:15 08:00 Temperature 97.3 F L 97.5 F L 97.8 F Pulse Rate 63 68 70 Respiratory 18 18 18 Rate Blood Pressure 100/54 103/69 104/68 [Left] O2 Sat by Pulse 96 96 97 Oximetry 09/03/19 09:05 Temperature Pulse Rate Respiratory Rate Blood Pressure [Left] O2 Sat by Pulse 98 Oximetry - Allied health notes Allied health notes reviewed: nursing, PT, ST, OT FIMS assessment as documented by PT/OT/ST: Social interaction/Memory/Problem solving Social Interaction FIM Score 4. Minimal Assistance (Interacts appropriately 75-90%.) Memory FIM Score 5. Supervision (Needs cueing <10%, stressful/ unfamiliar situations.) Problem Solving FIM Score 4. Minimal Assistance (Solves routine problems 75-90%.) Transfers Mode of Locomotion: Wheelchair Bed/Chair/Wheelchair Transfers 4. Minimal Assistance (Patient = 75% or more. FIM Score Needs touching.) Locomotion- walk/wheelchair Ambulation Distance 10 - Labs CBC & Chem 7: 09/01/19 07:37 09/04/19 07:18 Labs: Laboratory Results - last 72 hr 08/31/19 08/31/19 08/31/19 12:05 16:31 22:55 WBC RBC Hgb Hct MCV MCH MCHC RDW Plt Count Sodium Potassium Chloride Carbon Dioxide Anion Gap BUN Creatinine Estimated GFR BUN/Creatinine Ratio Glucose POC Glucose 148 H 156 H 163 H Calcium 09/01/19 09/01/19 09/01/19 07:30 07:37 07:37 WBC 7.6 RBC 4.45 Hgb 12.9 Hct 39.9 MCV 90 MCH 29 MCHC 32 RDW 12.4 L Plt Count 206 Sodium 138 Potassium 4.3 Chloride 100.0 Carbon Dioxide 26 Anion Gap 16 BUN 22 H Creatinine 0.8 Estimated GFR > 60 BUN/Creatinine Ratio 28 Glucose 103 H POC Glucose 99 Calcium 9.5 09/01/19 09/01/19 09/01/19 12:00 16:20 21:33 WBC RBC Hgb Hct MCV MCH MCHC RDW Plt Count Sodium Potassium Chloride Carbon Dioxide Anion Gap BUN Creatinine Estimated GFR BUN/Creatinine Ratio Glucose POC Glucose 133 H 158 H 139 H Calcium 09/02/19 09/02/19 09/02/19 07:50 11:59 16:09 WBC RBC Hgb Hct MCV MCH MCHC RDW Plt Count Sodium Potassium Chloride Carbon Dioxide Anion Gap BUN Creatinine Estimated GFR BUN/Creatinine Ratio Glucose POC Glucose 73 102 134 H Calcium 09/02/19 09/03/19 09/03/19 21:11 07:38 11:29 WBC RBC Hgb Hct MCV MCH MCHC RDW Plt Count Sodium Potassium Chloride Carbon Dioxide Anion Gap BUN Creatinine Estimated GFR BUN/Creatinine Ratio Glucose POC Glucose 131 H 91 87 Calcium Assessment and Plan CVA with right nondominant hemiparesis: Continue secondary stroke protocol with DAPT. Continue to monitor for recurrent CVA, post stroke depression, shoulder- hand syndrome. Monitor skin for any new wounds and monitor positioning to reduce chance of new ones. No driving until cleared by neurology, follow-up wi th neurology after discharge. Discussion held with patient as well as concerning prognosis, secondary stroke prevention, and plan of care for stroke recovery. Smoking cessation conversation held with as well as patient on admission COPD: Continue medications as ordered. Supplemental O2 as needed. Monitor for signs symptoms of exacerbation. Respiratory therapy consult. Dehydration: Tolerated IV fluids. Have already increased tube feed flushes. Labs improved, continue to monitor CHF: Monitor for CHF exacerbation. Daily weights, nursing notify for weight gain greater than 5 pounds in 1 week. Lifestyle modifications discussed (weight loss, tobacco cessation, decrease sodium intake). Continue loop diuretics, beta-seven and BECCA inhibitor as tolerated. Daily weights not being performed. Addressed with nursing. Hypertension: Continue medication. Monitor blood pressure and adjust medications as needed for normotension. Hold for hypotension Diabetes type 2: Patient currently on tube feeds. Will monitor blood glucose and continue sliding scale insulin and newly started metformin. Adjust medications as needed for normal glycemia. Dysphagia: Continue n.p.o. with tube feeds. COMPLIANCE CLERK to monitor and advance diet as able and perform FEES, MBSS or e-stim as needed. Right foot drop: Continue therapy. Monitor foot placement to avoid injury. Seems improved. May need to order custom AFO, will make decision as we work with him. Right shoulder subluxation: Continue support right upper extremity with either sling and/or arm tray in the wheelchair. Monitor for worsening continue strengthening and e-stim as needed for improvement. No current signs of shoulder-hand syndrome continue to monitor for any signs or symptoms. Right facial droop: Continue therapy for strengthening exercises to improve facial strength. E-stim as needed. Dysarthria: Continue COMPLIANCE CLERK to improve ability to speak clearly by strengthening and improving control muscles, improving breath support and slowing rate of speech. ADL dysfunction: OT will work on improving ability to perform ADLs (including assistive devices) to increase independence and decrease caregiver burden and improve functional transfers and mobility training. Difficulty walking: PT will work on gait training and proper use of assistive devices and advance as appropriate to use of stairs and outside ambulation on uneven surfaces. Unsteadiness on feet: PT will work on improving static and dynamic sitting and standing balance as well as proper use of assistive devices to decrease risk of falls. Abnormality of gait: PT will work to improve safety and efficiency of gait through neuromotor training and gait training along with instruction on proper use of assistive devices. Muscle weakness: PT & OT will work on strengthening exercises to improve functional strength including mixture of closed and open kinetic chain exercises. Debility: PT & OT will work on improving overall functional status to improve participation with ADLs, mobility and social involvement. Fatigue: PT & OT will work on improving endurance through aerobic exercises and therapeutic activity while monitoring patients tolerance for activity and vital signs as needed. DVT ppx: Heparin Pain: Continue physical modalities in therapy and pain medications as needed to achieve functional pain control. Sleep: Monitor and address as needed. Bowel: Monitor and address as needed. Appetite: Monitor and address as needed. Discharge planning: Pending therapy progress and care plan meeting. Will continue discussion with therapy team, SW, patient and family. Restrictions/ Precautions: Falls, aspiration, right hemiparesis WB status: FWB Functional Hx: ADLs: Independent Cognition: Independent Mobility: No AD Barriers to Discharge: Decreased mobility and ability to perform self care, balance deficits, weakness Estimated Length of Stay: 1421 days Discharge Destination: Home with family
[2019-09-03] MEDS: MODAFINIL 100 MG TAB FEEDTUBE SCH (13:19)
[2019-09-03] MEDS ORDERED: SODIUM CHLORIDE 0.9% 1000 ML 1,000 ML IV SCH (14:00)
[2019-09-04] MEDS: carvediloL 6.25 MG TAB FEEDTUBE SCH ×3 (00:56→22:59)
[2019-09-04] MEDS: HEPARIN 5,000 UNIT/1 ML VIAL SUB-Q SCH ×4 (00:56→22:57)
[2019-09-04] MEDS: INSULIN LISPRO 100 UNIT/ML SUB-Q SCH ×3 (07:35→17:37)
[2019-09-04 07:54] LABS: BUN/Creatinine Ratio 25; Blood Urea Nitrogen 20 mg/dL (9-20); Calcium 9.6 mg/dL (8.4-10.2); Hemolysis Index 3
[2019-09-04] MEDS: LISINOPRIL 5 MG TAB FEEDTUBE SCH (08:32)
[2019-09-04] MEDS: BUDESONIDE 0.5 MG/2 ML NEBU IH SCH ×2 (08:41→20:36)
[2019-09-04] MEDS: ARFORMOTEROL 15 MCG/2 ML NEBU IH SCH ×2 (08:41→20:36)
[2019-09-04] MEDS: metFORMIN 500 MG TAB FEEDTUBE SCH ×2 (08:46→17:46)
[2019-09-04] MEDS: CLOPIDOGREL 75 MG TAB FEEDTUBE SCH (10:00)
[2019-09-04] MEDS: LANSOPRAZOLE 30 MG SOLUTAB FEEDTUBE SCH (10:39)
[2019-09-04] MEDS: FUROSEMIDE 40 MG TAB FEEDTUBE SCH (10:40)
[2019-09-04] MEDS: MODAFINIL 100 MG TAB FEEDTUBE SCH (10:42)
[2019-09-04] MEDS: ASPIRIN 81 MG TAB CHEW FEEDTUBE SCH (10:44)
[2019-09-04] MEDS: predniSONE 5 MG/5 ML ORAL LIQUID FEEDTUBE SCH (10:45)
--- NOTE | 2019-09-04 11:48 | Progress Note ---
Subjective Date of service: 09/04/19 Principal diagnosis: CVA with right nondominant hemiplegia Interval history: 63-year-old male who presented to the ER 08/10/19 after experiencing a right-sided facial droop with slurred speech that started the night before. CT head was taken and showed a left MCA infarct. tPA was not administered as the patient was outside the window. Neurology was consulted. CTA head and neck were also ordered, no stenosis seen in the right or left carotid, no significant stenosis noted in the vasculature of the head except in the left M2 branch near the origin. Patient was placed on appropriate secondary stroke prevention medication with DAPT. While on the espinosa he was noted upon examination to have respiratory distress along with diffuse wheezing. Suctioning was performed and food products were removed from his airway. He was transferred to the ICU and intubated. Stat chest CT was completed but did not reveal any plugging or obstructions. Patient was started on IV antibiotics for presumed aspiration pneumonia. He was seen by speech therapy and noted to have severe dysphagia. Initially he had a NG tube placed which was dislodged. Underwent MBS which showed stephani aspiration and oral pharyngeal dysphagia. He was then scheduled for PEG tube placement which occurred on August 21, 2019 and was performed by Dr. Gaudencio Gonzales. The tube is traction pull and once it is no longer needed may be pulled after [address] weeks of [address]. Unfortunately it appears he may continue to have need for this. Currently is n.p.o. with ice chips after appropriate oral care, will continue n.p.o. and only start ice chips once speech therapy feels this is safe. Patient is left-hand dominant and has severe right-sided hemiparesis. Fortunately for him he does have some recovery of right-sided strength whereas before he was completely flaccid per outside records. Continues to have right foot drop. Echocardiogram on August 11, 2019 showed an EF of 25 to 30% with mildly dilated left ventricle and a grade 2 diastolic dysfunction. There is also mention of an abnormal stress test that the outside hospital with an incomplete date that appears to show an abnormal perfusion scan demonstrating a large defect of severe intensity in the basal, mid and apical anterior wall. Cardiology recommended a ischemic work-up via left heart cath as an outpatient once he is recovered. There was question as to whether the patient has obstructive sleep apnea and outpatient follow-up was also recommended for this to perform a sleep study. Patient was not transferred on CPAP which was apparently discontinued during his stay in the outside hospital. He was also found to have type 2 diabetes with an A1c of 6.9. New diagnoses for this patient this admission include CVA, CHF, pulmonary hypertension, diabetes type 2, hypertension. Previously patient had only been diagnosed with COPD and is a former smoker having quit approximately 1 year ago. Interval History: Patient is participating in therapy and making reasonable progress. Taking rest breaks as needed. -BM. Denies pain, palpitations, dyspnea, cough, N/V, weakness, or joint pain. CVA with right nondominant hemiparesis: Tolerating secondary stroke prevention without signs of bleeding. No signs of worsening deficits due to CVA. No shoulder-hand syndrome appreciated. COPD: Continue inhalers. No issues with dyspnea today. Dehydration: Tolerated IV fluids. Continue to monitor. May also increase water flushes. Blood pressure Slightly improved after IV fluids. Dyspnea on exertion: No issues today. Patient is breathing well. Lungs sound clear. Continue to monitor for any issues and remind the patient to continue breathing when doing therapy. CHF: Seems to be well controlled, monitor fluid status and edema along with daily weights. Continue medications and adjust as needed. BNP elevated, do not have baseline other than the value that we just received. No signs of crackles or swelling in the lower extremities. Patient is having episodes of hypotension and medications are being held. Also had issues with elevated BUN which he still has. Will reduce Lasix dose and monitor closely over next several days. Hypertension: Blood pressures been on the lower side, will need to reduce Lasix and monitor patient closely for any signs or symptoms of hypertension or CHF exacerbation. Medications are being held. Continue to monitor Diabetes type 2: Continue medications. Continue sliding scale. Glucose levels are variable and have been low recently. Will reduce sliding scale insulin amount. Continue to monitor Dysphagia: Continue n.p.o. until cleared by speech for being able to tolerate oral intake. He is getting bolus feeding now. Continue to monitor Right foot drop: On initial exam patient was unable to dorsiflex his right foot however he has the ability to do this a little more, worse in supine position. We will continue to monitor to see if this continues or if this is an intermittent issue. For the time being will hold off on AFO. Dysarthria: Stable at this point. Continue work with speech in order to improve. Right shoulder subluxation: Stable, reminded patient to continue to elevate the arm and to monitor it. No signs of shoulder-hand syndrome currently. All records, vitals, labs and medications were reviewed. No other issues per patient, nursing or therapy. Patient discussed during team conference. Making fairly good progress overall however is still having some cognitive issues. We will continue to work with him to improve his ability to be independent at home as much as possible as he may be and up situation where he needs to be alone at home. Mobility seems to be pretty good however he does still have issues with balance and also has some visual deficits as well. At this point we will look to discharge on September 16. Patient will need a wheelchair for safety, 3 in 1, and possibly a hospital bed if he still is utilizing tube feeds at that point. Speech therapy will attempt feeding and possibly modified barium swallow shortly. Objective - Exam Narrative Exam: MUSCULOSKELETAL SPECIALTY EXAM CONSTITUTIONAL: Well developed, well nourished, appropriately groomed. LEFT hand dominant. RESPIRATORY: Clear to auscultation bilaterally, no increased work of breathing CARDIOVASCULAR: Regular Rate/ Rhythm, no swelling, edema or tenderness in BUE or BLE. All extremities warm. GI: + bowel sounds, soft, NTTP, nondistended. PEG tube in place INTEGUMENTARY: Normal, no lesion, rash, masses or bruising noted in extremities. MUSCULOSKELETAL: Right-sided hemiparesis with slight shoulder sublux, otherwise BUE and BLE normal without defect, crepitus, subluxation, effusion, arthritic changes or TTP. SA EF WE EE FF FA HF KE ADF EHL APF R 2/5 3/5 0/5 0/5 0/5 0/5 4-/5 4-/5 3/5 3/5 3/5 L 5/5 5/5 5/5 5/5 5/5 5/5 5/5 5/5 5/5 5/5 5/5 foot drop is variable depending on position for patient and sometimes on his fatigue. ROM decreased on right Tone increased on right upper extremity, normal elsewhere NEURO: CN VII : Right facial droop CN IX, X : Palate/uvula elevate midline, phonation abnormal CN XI : Absent shoulder shrug on right, normal head rotation CN XII : Tongue protrudes slightly right Sensation intact in all extremities without extinction. No tremor noted in 4 extremities. Naming and repetition intact. Follows 2 step commands. Aphasia not appreciated Dysarthria present Dysphagia present Neglect not appreciated POSTURE and GAIT: Sitting posture good. Balance and gait reasonable with cane. Slowed jono. PSYCH: Alert, oriented x3, affect appears euthymic. Insight appears intact. - Constitutional Vitals: Vital Signs - 12hr 09/04/19 09/04/19 09/04/19 01:00 06:06 07:56 Temperature 97.7 F 97.8 F Pulse Rate 63 61 Pulse Rate [ Anterior Bilateral Throughout] Respiratory 18 19 Rate Respiratory Rate [Anterior Bilateral Throughout] Blood Pressure 97/60 Blood Pressure 101/71 [Left] O2 Sat by Pulse 98 95 100 Oximetry 09/04/19 08:41 Temperature Pulse Rate Pulse Rate [ 60 Anterior Bilateral Throughout] Respiratory Rate Respiratory 17 Rate [Anterior Bilateral Throughout] Blood Pressure Blood Pressure [Left] O2 Sat by Pulse 98 Oximetry - Allied health notes Allied health notes reviewed: nursing, PT, ST, OT FIMS assessment as documented by PT/OT/ST: Social interaction/Memory/Problem solving Social Interaction FIM Score 5. Supervision (Needs supv. <10%. Needs encouragement to participate.) Memory FIM Score 5. Supervision (Needs cueing <10%, stressful/ unfamiliar situations.) Problem Solving FIM Score 5. Supervision (Needs cueing <10% to solve routine problems.) Transfers Mode of Locomotion: Wheelchair Bed/Chair/Wheelchair Transfers 5. Supervision (Needs supv. or set-up for FIM Score sliding board, foot rests.) Locomotion- walk/wheelchair Ambulation Distance 10 - Labs CBC & Chem 7: 09/01/19 07:37 09/04/19 07:18 Labs: Laboratory Results - last 72 hr 09/01/19 09/01/19 09/01/19 12:00 16:20 21:33 Sodium Potassium Chloride Carbon Dioxide Anion Gap BUN Creatinine Estimated GFR BUN/Creatinine Ratio Glucose POC Glucose 133 H 158 H 139 H Calcium NT-Pro-B Natriuret Pep 09/02/19 09/02/19 09/02/19 07:50 11:59 16:09 Sodium Potassium Chloride Carbon Dioxide Anion Gap BUN Creatinine Estimated GFR BUN/Creatinine Ratio Glucose POC Glucose 73 102 134 H Calcium NT-Pro-B Natriuret Pep 09/02/19 09/03/19 09/03/19 21:11 07:38 11:29 Sodium Potassium Chloride Carbon Dioxide Anion Gap BUN Creatinine Estimated GFR BUN/Creatinine Ratio Glucose POC Glucose 131 H 91 87 Calcium NT-Pro-B Natriuret Pep 09/03/19 09/03/19 09/04/19 16:18 21:36 07:18 Sodium 143 Potassium 4.1 Chloride 100.6 Carbon Dioxide 27 Anion Gap 20 BUN 20 Creatinine 0.8 Estimated GFR > 60 BUN/Creatinine Ratio 25 Glucose 70 L POC Glucose 208 H 186 H Calcium 9.6 NT-Pro-B Natriuret Pep 2300 H 09/04/19 07:37 Sodium Potassium Chloride Carbon Dioxide Anion Gap BUN Creatinine Estimated GFR BUN/Creatinine Ratio Glucose POC Glucose 56 L Calcium NT-Pro-B Natriuret Pep Assessment and Plan CVA with right nondominant hemiparesis: Continue secondary stroke protocol with DAPT. Continue to monitor for recurrent CVA, post stroke depression, shoulder- hand syndrome. Monitor skin for any new wounds and monitor positioning to reduce chance of new ones. No driving until cleared by neurology, follow-up with neurology after discharge. Discussion held with patient as well as concerning prognosis, secondary stroke prevention, and plan of care for stroke recovery. Smoking cessation conversation held with as well as patient on admission COPD: Continue medications as ordered. Supplemental O2 as needed. Monitor for signs symptoms of exacerbation. Respiratory therapy consult. Dehydration: Tolerated IV fluids. Have already increased tube feed flushes. Labs improved, continue to monitor CHF: Monitor for CHF exacerbation. Daily weights, nursing notify for weight gain greater than 5 pounds in 1 week. Lifestyle modifications discussed (weight loss, tobacco cessation, decrease sodium intake). Continue loop diuretics, beta-seven and BECCA inhibitor as tolerated. Daily weights not being performed. Addressed with nursing. Hypertension: Continue medication. Monitor blood pressure and adjust medications as needed for normotension. Hold for hypotension Diabetes type 2: Patient currently on tube feeds. Will monitor blood glucose and continue sliding scale insulin and newly started metformin. Adjust medications as needed for normal glycemia. Dysphagia: Continue n.p.o. with tube feeds. [employer] to monitor and advance diet as able and perform FEES, MBSS or e-stim as needed. Right foot drop: Continue therapy. Monitor foot placement to avoid injury. Se ems improved. May need to order custom AFO, will make decision as we work with him. Right shoulder subluxation: Continue support right upper extremity with either sling and/or arm tray in the wheelchair. Monitor for worsening continue strengthening and e-stim as needed for improvement. No current signs of shoulder-hand syndrome continue to monitor for any signs or symptoms. Right facial droop: Continue therapy for strengthening exercises to improve facial strength. E-stim as needed. Dysarthria: Continue [employer] to improve ability to speak clearly by strengthening and improving control muscles, improving breath support and slowing rate of speech. ADL dysfunction: OT will work on improving ability to perform ADLs (including assistive devices) to increase independence and decrease caregiver burden and improve functional transfers and mobility training. Difficulty walking: PT will work on gait training and proper use of assistive devices and advance as appropriate to use of stairs and outside ambulation on uneven surfaces. Unsteadiness on feet: PT will work on improving static and dynamic sitting and standing balance as well as proper use of assistive devices to decrease risk of falls. Abnormality of gait: PT will work to improve safety and efficiency of gait through neuromotor training and gait training along with instruction on proper use of assistive devices. Muscle weakness: PT & OT will work on strengthening exercises to improve functional strength including mixture of closed and open kinetic chain exercises. Debility: PT & OT will work on improving overall functional status to improve participation with ADLs, mobility and social involvement. Fatigue: PT & OT will work on improving endurance through aerobic exercises and therapeutic activity while monitoring patients tolerance for activity and vital signs as needed. DVT ppx: Heparin Pain: Continue physical modalities in therapy and pain medications as needed to achieve functional pain control. Sleep: Monitor and address as needed. Bowel: Monitor and address as needed. Appetite: Monitor and address as needed. Discharge planning: Pending therapy progress and care plan meeting. Will continue discussion with therapy team, SW, patient and family. Plan to discharge on September 16. Patient will need wheelchair, 3 in 1 and possibly a hospital bed. Restrictions/ Precautions: Falls, aspiration, right hemiparesis WB status: FWB Functional Hx: ADLs: Independent Cognition: Independent Mobility: No AD Barriers to Discharge: Decreased mobility and ability to perform self care, balance deficits, weakness Estimated Length of Stay: 1421 days Discharge Destination: Home with family
[2019-09-05] MEDS: HEPARIN 5,000 UNIT/1 ML VIAL SUB-Q SCH ×3 (06:02→22:35)
[2019-09-05] MEDS: BUDESONIDE 0.5 MG/2 ML NEBU IH SCH ×2 (09:14→21:41)
[2019-09-05] MEDS: ARFORMOTEROL 15 MCG/2 ML NEBU IH SCH ×2 (09:14→21:41)
[2019-09-05] MEDS: predniSONE 5 MG/5 ML ORAL LIQUID FEEDTUBE SCH (09:38)
[2019-09-05] MEDS: CLOPIDOGREL 75 MG TAB FEEDTUBE SCH (09:39)
[2019-09-05] MEDS: LANSOPRAZOLE 30 MG SOLUTAB FEEDTUBE SCH (09:39)
[2019-09-05] MEDS: ASPIRIN 81 MG TAB CHEW FEEDTUBE SCH (09:39)
[2019-09-05] MEDS: metFORMIN 500 MG TAB FEEDTUBE SCH ×2 (09:39→17:52)
[2019-09-05] MEDS: MODAFINIL 100 MG TAB FEEDTUBE SCH (09:40)
[2019-09-05] MEDS: LISINOPRIL 5 MG TAB FEEDTUBE SCH (09:58)
[2019-09-05] MEDS: FUROSEMIDE 20 MG TAB FEEDTUBE SCH (09:58)
[2019-09-05] MEDS: INSULIN LISPRO 100 UNIT/ML SUB-Q SCH ×3 (09:59→17:52)
[2019-09-05] MEDS: carvediloL 6.25 MG TAB FEEDTUBE SCH ×2 (09:59→22:33)
--- NOTE | 2019-09-05 13:01 | Progress Note ---
Subjective Date of service: 09/05/19 Principal diagnosis: CVA with right nondominant hemiplegia Interval history: 63-year-old male who presented to the ER 08/10/19 after experiencing a right-sided facial droop with slurred speech that started the night before. CT head was taken and showed a left MCA infarct. tPA was not administered as the patient was outside the window. Neurology was consulted. CTA head and neck were also ordered, no stenosis seen in the right or left carotid, no significant stenosis noted in the vasculature of the head except in the left M2 branch near the origin. Patient was placed on appropriate secondary stroke prevention medication with DAPT. While on the espinosa he was noted upon examination to have respiratory distress along with diffuse wheezing. Suctioning was performed and food products were removed from his airway. He was transferred to the ICU and intubated. Stat chest CT was completed but did not reveal any plugging or obstructions. Patient was started on IV antibiotics for presumed aspiration pneumonia. He was seen by speech therapy and noted to have severe dysphagia. Initially he had a NG tube placed which was dislodged. Underwent MBS which showed stephani aspiration and oral pharyngeal dysphagia. He was then scheduled for PEG tube placement which occurred on August 21, 2019 and was performed by Dr. Gaudencio Gonzales. The tube is traction pull and once it is no longer needed may be pulled after [address] weeks of [address] in [address]. Unfortunately it appears he may continue to have need for this. Currently is n.p.o. with ice chips after appropriate oral care, will continue n.p.o. and only start ice chips once speech therapy feels this is safe. Patient is left-hand dominant and has severe right-sided hemiparesis. Fortunately for him he does have some recovery of right-sided strength whereas before he was completely flaccid per outside records. Continues to have right foot drop. Echocardiogram on August 11, 2019 showed an EF of 25 to 30% with mildly dilated left ventricle and a grade 2 diastolic dysfunction. There is also mention of an abnormal stress test that the outside hospital with an incomplete date that appears to show an abnormal perfusion scan demonstrating a large defect of severe intensity in the basal, mid and apical anterior wall. Cardiology recommended a ischemic work-up via left heart cath as an outpatient once he is recovered. There was question as to whether the patient has obstructive sleep apnea and outpatient follow-up was also recommended for this to perform a sleep study. Patient was not transferred on CPAP which was apparently discontinued during his stay in the outside hospital. He was also found to have type 2 diabetes with an A1c of 6.9. New diagnoses for this patient this admission include CVA, CHF, pulmonary hypertension, diabetes type 2, hypertension. Previously patient had only been diagnosed with COPD and is a former smoker having quit approximately 1 year ago. Interval History: Patient is participating in therapy and making reasonable progress. Taking rest breaks as needed. -BM. Denies pain, palpitations, dyspnea, cough, N/V, weakness, or joint pain. CVA with right nondominant hemiparesis: Tolerating secondary stroke prevention without signs of bleeding. No signs of worsening deficits due to CVA. No shoulder-hand syndrome appreciated. COPD: Continue inhalers. No issues with dyspnea today. Able to ambulate without supplemental oxygen today. Discussed with nursing, will start to wean oxygen and only use as needed. Dehydration: Tolerated IV fluids. Continue to monitor. May also increase water flushes. Blood pressure Slightly improved after IV fluids. Dyspnea on exertion: No issues today. Patient is breathing well. Lungs sound clear. Continue to monitor for any issues and remind the patient to continue breathing when doing therapy. CHF: Seems to be well controlled, monitor fluid status and edema along with daily weights. Continue medications and adjust as needed. BNP elevated, do not have baseline other than the value that we just received. No signs of crackles or swelling in the lower extremities. Patient is having episodes of hypotension and medications are being held. Also had issues with elevated BUN which he still has. Continue to monitor closely over next several days with Lasix being held. Hypertension: Blood pressures are stable, continue to monitor for improvement since reduce Lasix. Monitor patient closely for any signs or symptoms of hypertension or CHF exacerbation. Medications are being held. Continue to mo nitor Diabetes type 2: Continue medications. Continue sliding scale. Glucose levels are variable and have been low recently. Will reduce sliding scale insulin amount. Continue to monitor Dysphagia: Cleared by HEAD OF PHYSICS for ice chips. Will plan for modified barium swallow on Sunday. He is getting bolus feeding now. Continue to monitor Right foot drop: On initial exam patient was unable to dorsiflex his right foot however he has the ability to do this a little more, worse in supine position. We will continue to monitor to see if this continues or if this is an intermittent issue. For the time being will hold off on AFO. Dysarthria: Stable at this point. Continue work with speech in order to improve. Right shoulder subluxation: Stable, reminded patient to continue to elevate the arm and to monitor it. No signs of shoulder-hand syndrome currently. All records, vitals, labs and medications were reviewed. No other issues per patient, nursing or therapy. Objective - Exam Narrative Exam: MUSCULOSKELETAL SPECIALTY EXAM CONSTITUTIONAL: Well developed, well nourished, appropriately groomed. LEFT hand dominant. RESPIRATORY: Clear to auscultation bilaterally, no increased work of breathing CARDIOVASCULAR: Regular Rate/ Rhythm, no swelling, edema or tenderness in BUE or BLE. All extremities warm. GI: + bowel sounds, soft, NTTP, nondistended. PEG tube in place INTEGUMENTARY: Normal, no lesion, rash, masses or bruising noted in extremities. MUSCULOSKELETAL: Right-sided hemiparesis with slight shoulder sublux, otherwise BUE and BLE normal without defect, crepitus, subluxation, effusion, arthritic changes or TTP. SA EF WE EE FF FA HF KE ADF EHL APF R 2/5 3/5 0/5 0/5 0/5 0/5 4-/5 4-/5 3/5 3/5 3/5 L 5/5 5/5 5/5 5/5 5/5 5/5 5/5 5/5 5/5 5/5 5/5 foot drop is variable depending on position for patient and sometimes on his f atigue. ROM decreased on right, slightly improved Tone increased on right upper extremity, normal elsewhere NEURO: CN VII : Right facial droop CN IX, X : Palate/uvula elevate midline, phonation abnormal CN XI : Absent shoulder shrug on right, normal head rotation CN XII : Tongue protrudes slightly right Sensation intact in all extremities without extinction. No tremor noted in 4 extremities. Naming and repetition intact. Follows 2 step commands. Aphasia not appreciated Dysarthria present Dysphagia present Neglect not appreciated POSTURE and GAIT: Sitting posture good. Balance and gait reasonable with cane. Slowed jono. PSYCH: Alert, oriented x3, affect appears euthymic. Insight appears intact. - Constitutional Vitals: Vital Signs - 12hr 09/05/19 09/05/19 09/05/19 01:00 04:36 07:30 Temperature 98.1 F 98.1 F Pulse Rate 68 Pulse Rate [ Anterior Bilateral Throughout] Respiratory 17 20 18 Rate Respiratory Rate [Anterior Bilateral Throughout] Blood Pressure 92/59 O2 Sat by Pulse 97 94 98 Oximetry 09/05/19 09/05/19 09/05/19 07:31 09:14 09:58 Temperature Pulse Rate 61 61 Pulse Rate [ 68 Anterior Bilateral Throughout] Respiratory Rate Respiratory 18 Rate [Anterior Bilateral Throughout] Blood Pressure 102/63 102/63 O2 Sat by Pulse 98 97 Oximetry 09/05/19 09:59 Temperature Pulse Rate 61 Pulse Rate [ Anterior Bilateral Throughout] Respiratory Rate Respiratory Rate [Anterior Bilateral Throughout] Blood Pressure 102/63 O2 Sat by Pulse Oximetry - Allied health notes Allied health notes reviewed: nursing, PT, ST, OT FIMS assessment as documented by PT/OT/ST: Social interaction/Memory/Problem solving Social Interaction FIM Score 5. Supervision (Needs supv. <10%. Needs encouragement to participate.) Memory FIM Score 5. Supervision (Needs cueing <10%, stressful/ unfamiliar situations.) Problem Solving FIM Score 5. Supervision (Needs cueing <10% to solve routine problems.) Transfers Mode of Locomotion: Wheelchair Bed/Chair/Wheelchair Transfers 4. Minimal Assistance (Patient = 75% or more. FIM Score Needs touching.) Locomotion- walk/wheelchair Ambulation Distance 10 - Labs CBC & Chem 7: 09/01/19 07:37 09/04/19 07:18 Labs: Laboratory Results - last 72 hr 09/02/19 09/02/19 09/03/19 16:09 21:11 07:38 Sodium Potassium Chloride Carbon Dioxide Anion Gap BUN Creatinine Estimated GFR BUN/Creatinine Ratio Glucose POC Glucose 134 H 131 H 91 Calcium NT-Pro-B Natriuret Pep 09/03/19 09/03/19 09/03/19 11:29 16:18 21:36 Sodium Potassium Chloride Carbon Dioxide Anion Gap BUN Creatinine Estimated GFR BUN/Creatinine Ratio Glucose POC Glucose 87 208 H 186 H Calcium NT-Pro-B Natriuret Pep 09/04/19 09/04/19 09/04/19 07:18 07:37 12:15 Sodium 143 Potassium 4.1 Chloride 100.6 Carbon Dioxide 27 Anion Gap 20 BUN 20 Creatinine 0.8 Estimated GFR > 60 BUN/Creatinine Ratio 25 Glucose 70 L POC Glucose 56 L 131 H Calcium 9.6 NT-Pro-B Natriuret Pep 2300 H 09/04/19 09/04/19 09/05/19 16:35 21:15 07:42 Sodium Potassium Chloride Carbon Dioxide Anion Gap BUN Creatinine Estimated GFR BUN/Creatinine Ratio Glucose POC Glucose 102 218 H 100 Calcium NT-Pro-B Natriuret Pep 09/05/19 12:03 Sodium Potassium Chloride Carbon Dioxide Anion Gap BUN Creatinine Estimated GFR BUN/Creatinine Ratio Glucose POC Glucose 172 H Calcium NT-Pro-B Natriuret Pep Assessment and Plan CVA with right nondominant hemiparesis: Continue secondary stroke protocol with DAPT. Continue to monitor for recurrent CVA, post stroke depression, shoulder-hand syndrome. Monitor skin for any new wounds and monitor positioning to reduce chance of new ones. No driving until cleared by neurology, follow-up with neurology after discharge. Discussion held with patient as well as concerning prognosis, secondary stroke prevention, and plan of care for stroke recovery. Smoking cessation conversation held with as well as patient on admission COPD: Continue medications as ordered. Supplemental O2 as needed. Monitor for signs symptoms of exacerbation. Respiratory therapy consult. Dehydration: Tolerated IV fluids. Have already increased tube feed flushes. Labs improved, continue to monitor. Lasix reduced CHF: Monitor for CHF exacerbation. Daily weights, nursing notify for weight gain greater than 5 pounds in 1 week. Lifestyle modifications discussed (weight loss, tobacco cessation, decrease sodium intake). Continue loop diuretics, beta-seven and BECCA inhibitor as tolerated. Monitor on decreased dose of Lasix. Hypertension: Continue medication. Monitor blood pressure and adjust medications as needed for normotension. Hold for hypotension Diabetes type 2: Patient currently on tube feeds. Will monitor blood glucose a nd continue sliding scale insulin and newly started metformin. Adjust medications as needed for normal glycemia. Dysphagia: Continue n.p.o. with tube feeds. HEAD OF PHYSICS to monitor and advance diet as able and perform FEES, MBSS or e-stim as needed. Right foot drop: Continue therapy. Monitor foot placement to avoid injury. Seems improved. May need to order custom AFO, will make decision as we work with him. Right shoulder subluxation: Continue support right upper extremity with either sling and/or arm tray in the wheelchair. Monitor for worsening continue strengthening and e-stim as needed for improvement. No current signs of shoulder-hand syndrome continue to monitor for any signs or symptoms. Right facial droop: Continue therapy for strengthening exercises to improve facial strength. E-stim as needed. Dysarthria: Continue HEAD OF PHYSICS to improve ability to speak clearly by strengthening an d improving control muscles, improving breath support and slowing rate of speech. ADL dysfunction: OT will work on improving ability to perform ADLs (including assistive devices) to increase independence and decrease caregiver burden and improve functional transfers and mobility training. Difficulty walking: PT will work on gait training and proper use of assistive devices and advance as appropriate to use of stairs and outside ambulation on uneven surfaces. Unsteadiness on feet: PT will work on improving static and dynamic sitting and standing balance as well as proper use of assistive devices to decrease risk of falls. Abnormality of gait: PT will work to improve safety and efficiency of gait through neuromotor training and gait training along with instruction on proper use of assistive devices. Muscle weakness: PT & OT will work on strengthening exercises to improve functional strength including mixture of closed and open kinetic chain exercises. Debility: PT & OT will work on improving overall functional status to improve participation with ADLs, mobility and social involvement. Fatigue: PT & OT will work on improving endurance through aerobic exercises and therapeutic activity while monitoring patients tolerance for activity and vital signs as needed. DVT ppx: Heparin Pain: Continue physical modalities in therapy and pain medications as needed to achieve functional pain control. Sleep: Monitor and address as needed. Bowel: Monitor and address as needed. Appetite: Monitor and address as needed. Discharge planning: Pending therapy progress and care plan meeting. Will continue discussion with therapy team, SW, patient and family. Plan to discharge on September 16. Patient will need wheelchair, 3 in 1 and possibly a hospital bed. Restrictions/ Precautions: Falls, aspiration, right hemiparesis WB status: FWB Functional Hx: ADLs: Independent Cognition: Independent Mobility: No AD Barriers to Discharge: Decreased mobility and ability to perform self care, balance deficits, weakness Estimated Length of Stay: 1421 days Discharge Destination: Home with family
[2019-09-06] MEDS: HEPARIN 5,000 UNIT/1 ML VIAL SUB-Q SCH ×3 (06:00→22:00)
[2019-09-06] MEDS: INSULIN LISPRO 100 UNIT/ML SUB-Q SCH ×3 (08:00→16:50)
[2019-09-06] MEDS: predniSONE 5 MG/5 ML ORAL LIQUID FEEDTUBE SCH (08:46)
[2019-09-06] MEDS: MODAFINIL 100 MG TAB FEEDTUBE SCH ×2 (08:47→10:00)
[2019-09-06] MEDS: FUROSEMIDE 20 MG TAB FEEDTUBE SCH (08:48)
[2019-09-06] MEDS: metFORMIN 500 MG TAB FEEDTUBE SCH ×2 (08:48→17:00)
[2019-09-06] MEDS: ASPIRIN 81 MG TAB CHEW FEEDTUBE SCH (08:48)
[2019-09-06] MEDS: LANSOPRAZOLE 30 MG SOLUTAB FEEDTUBE SCH (08:49)
[2019-09-06] MEDS: CLOPIDOGREL 75 MG TAB FEEDTUBE SCH (08:49)
[2019-09-06] MEDS: carvediloL 6.25 MG TAB FEEDTUBE SCH ×2 (16:25→22:00)
[2019-09-06] MEDS: LISINOPRIL 5 MG TAB FEEDTUBE SCH (16:25)
[2019-09-06] MEDS: ARFORMOTEROL 15 MCG/2 ML NEBU IH SCH ×2 (21:12→21:16)
[2019-09-06] MEDS: BUDESONIDE 0.5 MG/2 ML NEBU IH SCH ×2 (21:12→21:16)
[2019-09-07] MEDS: HEPARIN 5,000 UNIT/1 ML VIAL SUB-Q SCH ×3 (06:26→22:08)
[2019-09-07] MEDS: INSULIN LISPRO 100 UNIT/ML SUB-Q SCH ×3 (07:18→16:39)
[2019-09-07] MEDS: predniSONE 5 MG/5 ML ORAL LIQUID FEEDTUBE SCH (07:36)
[2019-09-07] MEDS: metFORMIN 500 MG TAB FEEDTUBE SCH ×2 (07:37→16:37)
[2019-09-07] MEDS: LANSOPRAZOLE 30 MG SOLUTAB FEEDTUBE SCH (07:37)
[2019-09-07] MEDS: MODAFINIL 100 MG TAB FEEDTUBE SCH (07:37)
[2019-09-07] MEDS: FUROSEMIDE 20 MG TAB FEEDTUBE SCH (07:37)
[2019-09-07] MEDS: CLOPIDOGREL 75 MG TAB FEEDTUBE SCH (07:38)
[2019-09-07] MEDS: ASPIRIN 81 MG TAB CHEW FEEDTUBE SCH (07:38)
[2019-09-07] MEDS: LISINOPRIL 5 MG TAB FEEDTUBE SCH (16:38)
[2019-09-07] MEDS: carvediloL 6.25 MG TAB FEEDTUBE SCH ×2 (16:38→22:07)
[2019-09-07] MEDS: ARFORMOTEROL 15 MCG/2 ML NEBU IH SCH ×2 (19:28→20:54)
[2019-09-07] MEDS: BUDESONIDE 0.5 MG/2 ML NEBU IH SCH ×2 (19:31→20:54)
[2019-09-08] MEDS: HEPARIN 5,000 UNIT/1 ML VIAL SUB-Q SCH ×3 (05:28→22:11)
[2019-09-08] MEDS: INSULIN LISPRO 100 UNIT/ML SUB-Q SCH ×3 (07:50→17:04)
--- NOTE | 2019-09-08 07:59 | Progress Note ---
Subjective Date of service: 09/08/19 Principal diagnosis: CVA with right nondominant hemiplegia Interval history: 63-year-old male who presented to the ER 08/10/19 after experiencing a right-sided facial droop with slurred speech that started the night before. CT head was taken and showed a left MCA infarct. tPA was not administered as the patient was outside the window. Neurology was consulted. CTA head and neck were also ordered, no stenosis seen in the right or left carotid, no significant stenosis noted in the vasculature of the head except in the left M2 branch near the origin. Patient was placed on appropriate secondary stroke prevention medication with DAPT. While on the espinosa he was noted upon examination to have respiratory distress along with diffuse wheezing. Suctioning was performed and food products were removed from his airway. He was transferred to the ICU and intubated. Stat chest CT was completed but did not reveal any plugging or obstructions. Patient was started on IV antibiotics for presumed aspiration pneumonia. He was seen by speech therapy and noted to have severe dysphagia. Initially he had a NG tube placed which was dislodged. Underwent MBS which showed stephani aspiration and oral pharyngeal dysphagia. He was then scheduled for PEG tube placement which occurred on August 21, 2019 and was performed by Dr. Gaudencio Gonzales. The tube is traction pull and once it is no longer needed may be pulled after [address]. Unfortunately it appears he may continue to have need for this. Currently is n.p.o. with ice chips after appropriate oral care, will continue n.p.o. and only start ice chips once speech therapy feels this is safe. Patient is left-hand dominant and has severe right-sided hemiparesis. Fortunately for him he does have some recovery of right-sided strength whereas before he was completely flaccid per outside records. Continues to have right foot drop. Echocardiogram on August 11, 2019 showed an EF of 25 to 30% with mildly dilated left ventricle and a grade 2 diastolic dysfunction. There is also mention of an abnormal stress test that the outside hospital with an incomplete date that appears to show an abnormal perfusion scan demonstrating a large defect of severe intensity in the basal, mid and apical anterior wall. Cardiology recommended a ischemic work-up via left heart cath as an outpatient once he is recovered. There was question as to whether the patient has obstructive sleep apnea and outpatient follow-up was also recommended for this to perform a sleep study. Patient was not transferred on CPAP which was apparently discontinued during his stay in the outside hospital. He was also found to have type 2 diabetes with an A1c of 6.9. New diagnoses for this patient this admission include CVA, CHF, pulmonary hypertension, diabetes type 2, hypertension. Previously patient had only been diagnosed with COPD and is a former smoker having quit approximately 1 year ago. Interval History: Patient is participating in therapy and making reasonable progress. Taking rest breaks as needed. +BM, not charted. Afebrile. Denies pain, palpitations, dyspnea, cough, N/V, weakness, or joint pain. CVA with right nondominant hemiparesis: Tolerating secondary stroke prevention without signs of bleeding. No signs of worsening deficits due to CVA. No shoulder-hand syndrome appreciated. Slight motion detected on exam of distal RUE. COPD: Continue inhalers. No issues with dyspnea today. Able to ambulate without supplemental oxygen today. Discussed with nursing, will start to wean oxygen and only use as needed. Dehydration: Tolerated IV fluids. Continue to monitor. May also increase water flushes. Blood pressure Slightly improved after IV fluids. Dyspnea on exertion: No issues today. Patient is breathing well. Lungs sound clear. Continue to monitor for any issues and remind the patient to continue breathing when doing therapy. CHF: Seems to be well controlled, monitor fluid status and edema along with daily weights. Continue medications and adjust as needed. BNP elevated, do not have baseline other than the value that we just received. No signs of crackles or swelling in the lower extremities. Patient is having episodes of hypotension and medications are being held. Recheck labs in AM Hypertension: Blood pressures are stable, continue to monitor for improvement since reduce Lasix. Monitor patient closely for any signs or symptoms of hypertension or CHF exacerbation. Medications are being held. Continue to monitor Diabetes type 2: Continue medications. Continue sliding scale. Glucose levels are variable and have been low recently. Will reduce sliding scale insulin amount. Continue to monitor Dysphagia: Cleared by LOOM FIXER SUPERVISOR for ice chips. Modified barium swallow today. He is getting bolus feeding now. Continue to monitor Right foot drop: On initial exam patient was unable to dorsiflex his right foot however he has the ability to do this a little more, worse in supine position. We will continue to monitor to see if this continues or if this is an intermittent issue. For the time being will hold off on AFO. Dysarthria: Stable at this point. Continue work with speech in order to improve. Right shoulder subluxation: Stable, reminded patient to continue to elevate the arm and to monitor it. No signs of shoulder-hand syndrome currently. All records, vitals, labs and medications were reviewed. No other issues per patient, nursing or therapy. Objective - Exam Narrative Exam: MUSCULOSKELETAL SPECIALTY EXAM CONSTITUTIONAL: Well developed, well nourished, appropriately groomed. LEFT hand dominant. RESPIRATORY: Clear to auscultation bilaterally, no increased work of breathing CARDIOVASCULAR: Regular Rate/ Rhythm, no swelling, edema or tenderness in BUE or BLE. All extremities warm. GI: + bowel sounds, soft, NTTP, nondistended. PEG tube in place INTEGUMENTARY: Normal, no lesion, rash, masses or bruising noted in extremities. MUSCULOSKELETAL: Right-sided hemiparesis with slight shoulder sublux, otherwise BUE and BLE normal without defect, crepitus, subluxation, effusion, arthritic changes or TTP. SA EF WE EE FF FA HF KE ADF EHL APF R 2/5 3/5 1/5 0/5 1/5 0/5 4-/5 4-/5 3/5 3/5 3/5 L 5/5 5/5 5/5 5/5 5/5 5/5 5/5 5/5 5/5 5/5 5/5 foot drop is variable depending on position for patient and sometimes on his fatigue. ROM decreased on right, slightly improved Tone increased on right upper extremity, normal elsewhere NEURO: CN VII : Right facial droop CN IX, X : Palate/uvula elevate midline, phonation abnormal CN XI : Absent shoulder shrug on right, normal head rotation CN XII : Tongue protrudes slightly right Sensation intact in all extremities without extinction. No tremor noted in 4 extremities. Naming and repetition intact. Follows 2 step commands. Aphasia not appreciated Dysarthria present Dysphagia present Neglect not appreciated POSTURE and GAIT: Sitting posture good. Balance and gait reasonable with cane. Slowed jono. PSYCH: Alert, oriented x3, affect appears euthymic. Insight appears intact. - Constitutional Vitals: Vital Signs - 12hr 09/07/19 09/07/19 09/07/19 20:55 20:56 22:07 Temperature Pulse Rate Pulse Rate [ 89 Anterior Bilateral Throughout] Respiratory Rate Respiratory 18 Rate [Anterior Bilateral Throughout] Blood Pressure 108/70 O2 Sat by Pulse 97 Oximetry 09/08/19 09/08/19 09/08/19 00:18 04:43 07:02 Temperature 97.3 F L 98.2 F 97.0 F L Pulse Rate 78 61 77 Pulse Rate [ Anterior Bilateral Throughout] Respiratory 20 20 20 Rate Respiratory Rate [Anterior Bilateral Throughout] Blood Pressure 99/66 104/67 105/62 O2 Sat by Pulse 93 96 92 Oximetry - Allied health notes Allied health notes reviewed: nursing, PT, ST, OT FIMS assessment as documented by PT/OT/ST: Social interaction/Memory/Problem solving Social Interaction FIM Score 5. Supervision (Needs supv. <10%. Needs encouragement to participate.) Memory FIM Score 4. Minimal Assistance (Recognizes and remembers 75-90%.) Problem Solving FIM Score 4. Minimal Assistance (Solves routine problems 75-90%.) Transfers Mode of Locomotion: Wheelchair Bed/Chair/Wheelchair Transfers 4. Minimal Assistance (Patient = 75% or more. FIM Score Needs touching.) Locomotion- walk/wheelchair Ambulation Distance 10 - Labs CBC & Chem 7: 09/01/19 07:37 09/04/19 07:18 Labs: Laboratory Results - last 72 hr 09/05/19 09/05/19 09/05/19 12:03 16:48 21:42 POC Glucose 172 H 136 H 183 H 09/06/19 09/06/19 09/06/19 07:38 11:38 16:18 POC Glucose 87 172 H 150 H 09/06/19 09/07/19 09/07/19 23:28 06:03 07:29 POC Glucose 81 120 H 85 09/07/19 09/07/19 09/07/19 11:22 16:19 21:10 POC Glucose 158 H 204 H 93 09/08/19 07:52 POC Glucose 83 Assessment and Plan CVA with right nondominant hemiparesis: Continue secondary stroke protocol with DAPT. Continue to monitor for recurrent CVA, post stroke depression, shoulder- hand syndrome. Monitor skin for any new wounds and monitor positioning to reduce chance of new ones. No driving until cleared by neurology, follow-up with neurology after discharge. Discussion held with patient as well as concerning prognosis, secondary stroke prevention, and plan of care for stroke recovery. Smoking cessation conversation held with as well as patient on admission COPD: Continue medications as ordered. Supplemental O2 as needed. Monitor for signs symptoms of exacerbation. Respiratory therapy consult. Dehydration: Tolerated IV fluids. Have already increased tube feed flushes. Labs improved, continue to monitor. Lasix reduced CHF: Monitor for CHF exacerbation. Daily weights, nursing notify for weight gain greater than 5 pounds in 1 week. Lifestyle modifications discussed (weight loss, tobacco cessation, decrease sodium intake). Continue loop diuretics, beta-seven and BECCA inhibitor as tolerated. Monitor on decreased dose of Lasix. Hypertension: Continue medication. Monitor blood pressure and adjust medications as needed for normotension. Hold for hypotension Diabetes type 2: Patient currently on tube feeds. Will monitor blood glucose and continue sliding scale insulin and newly started metformin. Adjust medications as needed for normal glycemia. Dysphagia: Continue n.p.o. with tube feeds. LOOM FIXER SUPERVISOR to monitor and advance diet as able and perform FEES, MBSS or e-stim as needed. Right foot drop: Continue therapy. Monitor foot placement to avoid injury. Seems improved. May need to order custom AFO, will make decision as we work with him. Right shoulder subluxation: Continue support right upper extremity with either sling and/or arm tray in the wheelchair. Monitor for worsening continue strengthening and e-stim as needed for improvement. No current signs of shoulder-hand syndrome continue to monitor for any signs or symptoms. Right facial droop: Continue therapy for strengthening exercises to improve facial strength. E-stim as needed. Dysarthria: Continue LOOM FIXER SUPERVISOR to improve ability to speak clearly by strengthening and improving control muscles, improving breath support and slowing rate of speech. ADL dysfunction: OT will work on improving ability to perform ADLs (including assistive devices) to increase independence and decrease caregiver burden and improve functional transfers and mobility training. Difficulty walking: PT will work on gait training and proper use of assistive devices and advance as appropriate to use of stairs and outside ambulation on uneven surfaces. Unsteadiness on feet: PT will work on improving static and dynamic sitting and standing balance as well as proper use of assistive devices to decrease risk of falls. Abnormality of gait: PT will work to improve safety and efficiency of gait through neuromotor training and gait training along with instruction on proper use of assistive devices. Muscle weakness: PT & OT will work on strengthening exercises to improve functional strength including mixture of closed and open kinetic chain exercises. Debility: PT & OT will work on improving overall functional status to improve participation with ADLs, mobility and social involvement. Fatigue: PT & OT will work on improving endurance through aerobic exercises and therapeutic activity while monitoring patients tolerance for activity and vital signs as needed. DVT ppx: Heparin Pain: Continue physical modalities in therapy and pain medications as needed to achieve functional pain control. Sleep: Monitor and address as needed. Bowel: Monitor and address as needed. Appetite: Monitor and address as needed. Discharge planning: Pending therapy progress and care plan meeting. Will continue discussion with therapy team, SW, patient and family. Plan to discharge on September 16. Patient will need wheelchair, 3 in 1 and possibly a hospital bed pending ability to improve mobility. Restrictions/ Precautions: Falls, aspiration, right hemiparesis WB status: FWB Functional Hx: ADLs: Independent Cognition: Independent Mobility: No AD Barriers to Discharge: Decreased mobility and ability to perform self care, balance deficits, weakness Estimated Length of Stay: 1421 days Discharge Destination: Home with family
[2019-09-08] MEDS: predniSONE 5 MG/5 ML ORAL LIQUID FEEDTUBE SCH (08:16)
[2019-09-08] MEDS: CLOPIDOGREL 75 MG TAB FEEDTUBE SCH (08:17)
[2019-09-08] MEDS: metFORMIN 500 MG TAB FEEDTUBE SCH ×2 (08:17→17:56)
[2019-09-08] MEDS: LANSOPRAZOLE 30 MG SOLUTAB FEEDTUBE SCH (08:17)
[2019-09-08] MEDS: FUROSEMIDE 20 MG TAB FEEDTUBE SCH (08:18)
[2019-09-08] MEDS: ASPIRIN 81 MG TAB CHEW FEEDTUBE SCH (08:18)
[2019-09-08] MEDS: MODAFINIL 100 MG TAB FEEDTUBE SCH (08:20)
[2019-09-08] MEDS: BUDESONIDE 0.5 MG/2 ML NEBU IH SCH ×2 (08:46→20:02)
[2019-09-08] MEDS: ARFORMOTEROL 15 MCG/2 ML NEBU IH SCH ×2 (08:46→20:02)
[2019-09-08] MEDS: carvediloL 6.25 MG TAB FEEDTUBE SCH ×2 (08:49→22:11)
[2019-09-08] MEDS: LISINOPRIL 5 MG TAB FEEDTUBE SCH (09:49)
--- NOTE | 2019-09-08 14:18 | Fluoroscopy Report ---
MODIFIED BARIUM SWALLOW INDICATION: dysphagia TECHNIQUE: Swallowing was evaluated in the lateral position under direct fluoroscopy. FINDINGS: The patient was evaluated with thin liquid, puree, mixed and barium tablet. No aspiration was witnessed. One episode of penetration was seen with thin liquid and tablet together . Please correlate with the formal report by speech therapy. IMPRESSION: Unremarkable exam. Fluoroscopic time: 1.6 minutes Number of fluoroscopic images: 1 Signer Name: Harpreet Oconnell Jr, MD Signed: 09/08/2019 2:14 PM Workstation Name: [id number]
[2019-09-09] MEDS: HEPARIN 5,000 UNIT/1 ML VIAL SUB-Q SCH ×3 (05:43→21:44)
[2019-09-09 06:59] LABS: Hematocrit 42.8 % (35.5-45.6); Hemoglobin 14.2 gm/dl (11.8-15.2); Mean Corpuscular HGB Conc 33 % (32-34); Mean Corpuscular Volume 90 fl (84-94); Platelet Count 195 K/mm3 (140-440); Red Blood Count 4.77 M/mm3 (3.65-5.03); Red Cell Distribution Width 12.9 % (13.2-15.2)
[2019-09-09 07:22] LABS: BUN/Creatinine Ratio 14; Blood Urea Nitrogen 13 mg/dL (9-20); Calcium 9.8 mg/dL (8.4-10.2); Hemolysis Index 3
[2019-09-09] MEDS: INSULIN LISPRO 100 UNIT/ML SUB-Q SCH ×3 (08:10→18:14)
[2019-09-09] MEDS: BUDESONIDE 0.5 MG/2 ML NEBU IH SCH ×2 (09:35→22:54)
[2019-09-09] MEDS: ARFORMOTEROL 15 MCG/2 ML NEBU IH SCH ×2 (09:35→22:54)
[2019-09-09] MEDS: MODAFINIL 100 MG TAB FEEDTUBE SCH (10:17)
[2019-09-09] MEDS: predniSONE 5 MG/5 ML ORAL LIQUID FEEDTUBE SCH (10:17)
[2019-09-09] MEDS: FUROSEMIDE 20 MG TAB FEEDTUBE SCH (10:18)
[2019-09-09] MEDS: CLOPIDOGREL 75 MG TAB FEEDTUBE SCH (10:19)
[2019-09-09] MEDS: ASPIRIN 81 MG TAB CHEW FEEDTUBE SCH (10:19)
[2019-09-09] MEDS: metFORMIN 500 MG TAB FEEDTUBE SCH ×2 (10:20→18:15)
[2019-09-09] MEDS: LANSOPRAZOLE 30 MG SOLUTAB FEEDTUBE SCH (10:21)
--- NOTE | 2019-09-09 12:36 | Progress Note ---
Subjective Date of service: 09/09/19 Principal diagnosis: CVA with right nondominant hemiplegia Interval history: 63-year-old male who presented to the ER 08/10/19 after experiencing a right-sided facial droop with slurred speech that started the night before. CT head was taken and showed a left MCA infarct. tPA was not administered as the patient was outside the window. Neurology was consulted. CTA head and neck were also ordered, no stenosis seen in the right or left carotid, no significant stenosis noted in the vasculature of the head except in the left M2 branch near the origin. Patient was placed on appropriate secondary stroke prevention medication with DAPT. While on the espinosa he was noted upon examination to have respiratory distress along with diffuse wheezing. Suctioning was performed and food products were removed from his airway. He was transferred to the ICU and intubated. Stat chest CT was completed but did not reveal any plugging or obstructions. Patient was started on IV antibiotics for presumed aspiration pneumonia. He was seen by speech therapy and noted to have severe dysphagia. Initially he had a NG tube placed which was dislodged. Underwent MBS which showed stephani aspiration and oral pharyngeal dysphagia. He was then scheduled for PEG tube placement which occurred on August 21, 2019 and was performed by Dr. Gaudencio Gonzales. The tube is traction pull and once it is no longer needed may be pulled after [address] weeks of [address] in [address]. Unfortunately it appears he may continue to have need for this. Currently is n.p.o. with ice chips after appropriate oral care, will continue n.p.o. and only start ice chips once speech therapy feels this is safe. Patient is left-hand dominant and has severe right-sided hemiparesis. Fortunately for him he does have some recovery of right-sided strength whereas before he was completely flaccid per outside records. Continues to have right foot drop. Echocardiogram on August 11, 2019 showed an EF of 25 to 30% with mildly dilated left ventricle and a grade 2 diastolic dysfunction. There is also mention of an abnormal stress test that the outside hospital with an incomplete date that appears to show an abnormal perfusion scan demonstrating a large defect of severe intensity in the basal, mid and apical anterior wall. Cardiology recommended a ischemic work-up via left heart cath as an outpatient once he is recovered. There was question as to whether the patient has obstructive sleep apnea and outpatient follow-up was also recommended for this to perform a sleep study. Patient was not transferred on CPAP which was apparently discontinued during his stay in the outside hospital. He was also found to have type 2 diabetes with an A1c of 6.9. New diagnoses for this patient this admission include CVA, CHF, pulmonary hypertension, diabetes type 2, hypertension. Previously patient had only been diagnosed with COPD and is a former smoker having quit approximately 1 year ago. Interval History: Patient is participating in therapy and making reasonable progress. Taking rest breaks as needed. +BM, not charted. Afebrile. Denies pain, palpitations, dyspnea, cough, N/V, weakness, or joint pain. CVA with right nondominant hemiparesis: Tolerating secondary stroke prevention without signs of bleeding. No signs of worsening deficits due to CVA. No shoulder-hand syndrome appreciated. Slight motion detected on exam of distal RUE. COPD: Continue inhalers. No issues with dyspnea today. Able to ambulate without supplemental oxygen today. Discussed with nursing, will start to wean oxygen and only use as needed. Dehydration: Tolerated IV fluids. Continue to monitor. May also increase water flushes. Blood pressure Slightly improved after IV fluids. Dyspnea on exertion: No issues today. Patient is breathing well. Lungs sound clear. Continue to monitor for any issues and remind the patient to continue breathing when doing therapy. CHF: Seems to be well controlled, monitor fluid status and edema along with daily weights. Continue medications and adjust as needed. BNP elevated, do not have baseline other than the value that we just received. No signs of crackles or swelling in the lower extremities. Adjusted Lasix back to regular dose. BNP was elevated since last check. Hypertension: Blood pressures are stable, and on the lower side. Monitor patient closely for any signs or symptoms of hypertension or CHF exacerbation. Medications are being held. Continue to monitor Diabetes type 2: Continue medications. Continue sliding scale. Glucose levels are variable and have been low recently. Will reduce sliding scale insulin amount. Continue to monitor Dysphagia: Cleared by HOTEL SUPERINTENDENT for ice chips. Did well on barium swallow, could not tolerate mechanical soft due to poor oral management of foods, placed on full liquids and will advance from there. He is getting bolus feeding now. Continue to monitor Right foot drop: On initial exam patient was unable to dorsiflex his right foot however he has the ability to do this a little more, worse in supine position. We will continue to monitor to see if this continues or if this is an intermittent issue. For the time being will hold off on AFO. Dysarthria: Stable at this point. Continue work with speech in order to improve. Right shoulder subluxation: Stable, reminded patient to continue to elevate the arm and to monitor it. No signs of shoulder-hand syndrome currently. All records, vitals, labs and medications were reviewed. No other issues per patient, nursing or therapy. Objective - Exam Narrative Exam: MUSCULOSKELETAL SPECIALTY EXAM CONSTITUTIONAL: Well developed, well nourished, appropriately groomed. LEFT hand dominant. RESPIRATORY: Clear to auscultation bilaterally, no increased work of breathing CARDIOVASCULAR: Regular Rate/ Rhythm, no swelling, edema or tenderness in BUE or BLE. All extremities warm. GI: + bowel sounds, soft, NTTP, nondistended. PEG tube in place INTEGUMENTARY: Normal, no lesion, rash, masses or bruising noted in extremities. MUSCULOSKELETAL: Right-sided hemiparesis with slight shoulder sublux, otherwise BUE and BLE normal without defect, crepitus, subluxation, effusion, arthritic changes or TTP. SA EF WE EE FF FA HF KE ADF EHL APF R 2/5 3/5 1/5 0/5 1/5 0/5 4-/5 4-/5 3/5 3/5 3/5 L 5/5 5/5 5/5 5/5 5/5 5/5 5/5 5/5 5/5 5/5 5/5 foot drop is variable depending on position for patient and sometimes on his fatigue. ROM decreased on right, slightly improved Tone increased on right upper extremity, normal elsewhere NEURO: CN VII : Right facial droop CN IX, X : Palate/uvula elevate midline, phonation abnormal CN XI : Absent shoulder shrug on right, normal head rotation CN XII : Tongue protrudes slightly right Sensation intact in all extremities without extinction. No tremor noted in 4 extremities. Naming and repetition intact. Follows 2 step commands. Aphasia not appreciated Dysarthria present Dysphagia present Neglect not appreciated POSTURE and GAIT: Sitting posture good. Balance and gait reasonable with cane. Slowed jono. PSYCH: Alert, oriented x3, affect appears euthymic sometimes slightly flat. Insight appears intact. - Constitutional Vitals: Vital Signs - 12hr 09/09/19 09/09/19 09/09/19 04:24 07:33 09:37 Temperature 98.3 F 97.7 F Pulse Rate 70 Pulse Rate [ Anterior Bilateral Throughout] Respiratory 20 18 Rate Respiratory Rate [Anterior Bilateral Throughout] Blood Pressure 101/63 103/66 O2 Sat by Pulse 99 96 Oximetry 09/09/19 09/09/19 09:38 11:49 Temperature 97.9 F Pulse Rate 82 Pulse Rate [ 80 Anterior Bilateral Throughout] Respiratory 18 Rate Respiratory 18 Rate [Anterior Bilateral Throughout] Blood Pressure 92/58 O2 Sat by Pulse 99 Oximetry - Allied health notes Allied health notes reviewed: nursing, PT, ST, OT FIMS assessment as documented by PT/OT/ST: Social interaction/Memory/Problem solving Social Interaction FIM Score 5. Supervision (Needs supv. <10%. Needs encouragement to participate.) Memory FIM Score 5. Supervision (Needs cueing <10%, stressful/ unfamiliar situations.) Problem Solving FIM Score 4. Minimal Assistance (Solves routine problems 75-90%.) Transfers Mode of Locomotion: Wheelchair Bed/Chair/Wheelchair Transfers 4. Minimal Assistance (Patient = 75% or more. FIM Score Needs touching.) Locomotion- walk/wheelchair Ambulation Distance 10 Dressing-lower body Patient retrieves clothing No items: Lower Body Dressing FIM Score 3. Moderate Assistance (Patient = 50% or more) - Labs CBC & Chem 7: 09/09/19 06:44 09/09/19 06:44 Labs: Laboratory Results - last 72 hr 09/06/19 09/06/19 09/07/19 16:18 23:28 06:03 WBC RBC Hgb Hct MCV MCH MCHC RDW Plt Count Sodium Potassium Chloride Carbon Dioxide Anion Gap BUN Creatinine Estimated GFR BUN/Creatinine Ratio Glucose POC Glucose 150 H 81 120 H Calcium NT-Pro-B Natriuret Pep 09/07/19 09/07/19 09/07/19 07:29 11:22 16:19 WBC RBC Hgb Hct MCV MCH MCHC RDW Plt Count Sodium Potassium Chloride Carbon Dioxide Anion Gap BUN Creatinine Estimated GFR BUN/Creatinine Ratio Glucose POC Glucose 85 158 H 204 H Calcium NT-Pro-B Natriuret Pep 09/07/19 09/08/19 09/08/19 21:10 07:52 11:45 WBC RBC Hgb Hct MCV MCH MCHC RDW Plt Count Sodium Potassium Chloride Carbon Dioxide Anion Gap BUN Creatinine Estimated GFR BUN/Creatinine Ratio Glucose POC Glucose 93 83 190 H Calcium NT-Pro-B Natriuret Pep 09/08/19 09/08/19 09/09/19 16:19 22:16 06:44 WBC 6.8 RBC 4.77 Hgb 14.2 Hct 42.8 MCV 90 MCH 30 MCHC 33 RDW 12.9 L Plt Count 195 Sodium Potassium Chloride Carbon Dioxide Anion Gap BUN Creatinine Estimated GFR BUN/Creatinine Ratio Glucose POC Glucose 115 H 163 H Calcium NT-Pro-B Natriuret Pep 09/09/19 09/09/19 09/09/19 06:44 07:47 11:17 WBC RBC Hgb Hct MCV MCH MCHC RDW Plt Count Sodium 140 Potassium 4.7 Chloride 98.1 Carbon Dioxide 29 Anion Gap 18 BUN 13 Creatinine 0.9 Estimated GFR > 60 BUN/Creatinine Ratio 14 Glucose 108 H POC Glucose 80 123 H Calcium 9.8 NT-Pro-B Natriuret Pep 2661 H Assessment and Plan CVA with right nondominant hemiparesis: Continue secondary stroke protocol with DAPT. Continue to monitor for recurrent CVA, post stroke depression, shoulder- hand syndrome. Monitor skin for any new wounds and monitor positioning to reduce chance of new ones. No driving until cleared by neurology, follow-up with neurology after discharge. Discussion held with patient as well as concerning prognosis, secondary stroke prevention, and plan of care for stroke recovery. Smoking cessation conversation held with as well as patient on admission COPD: Continue medications as ordered. Supplemental O2 as needed. Monitor for signs symptoms of exacerbation. Respiratory therapy consult. Dehydration: Tolerated IV fluids. Have already increased tube feed flushes. Labs improved, continue to monitor. Lasix reduced CHF: Monitor for CHF exacerbation. Daily weights, nursing notify for weight gain greater than 5 pounds in 1 week. Lifestyle modifications discussed (weight loss, tobacco cessation, decrease sodium intake). Continue loop diuretics, beta-seven and BECCA inhibitor as tolerated. Return Lasix to previous dose. Hypertension: Continue medication. Monitor blood pressure and adjust medication s as needed for normotension. Hold for hypotension Diabetes type 2: Patient currently on tube feeds. Will monitor blood glucose and continue sliding scale insulin and newly started metformin. Adjust medications as needed for normal glycemia. Dysphagia: Continue n.p.o. with tube feeds. [employer] SUPER[employer]ENT to monitor and advance diet as able and perform FEES, MBSS or e-stim as needed. Right foot drop: Continue therapy. Monitor foot placement to avoid injury. Seems improved. May need to order custom AFO, will make decision as we work with him. Right shoulder subluxation: Continue support right upper extremity with either sling and/or arm tray in the wheelchair. Monitor for worsening continue stren gthening and e-stim as needed for improvement. No current signs of shoulder- hand syndrome continue to monitor for any signs or symptoms. Right facial droop: Continue therapy for strengthening exercises to improve facial strength. E-stim as needed. Dysarthria: Continue [employer] to improve ability to speak clearly by strengthening and improving control muscles, improving breath support and slowing rate of speech. ADL dysfunction: OT will work on improving ability to perform ADLs (including assistive devices) to increase independence and decrease caregiver burden and improve functional transfers and mobility training. Difficulty walking: PT will work on gait training and proper use of assistive devices and advance as appropriate to use of stairs and outside ambulation on uneven surfaces. Unsteadiness on feet: PT will work on improving static and dynamic sitting and standing balance as well as proper use of assistive devices to decrease risk of falls. Abnormality of gait: PT will work to improve safety and efficiency of gait through neuromotor training and gait training along with instruction on proper use of assistive devices. Muscle weakness: PT & OT will work on strengthening exercises to improve functional strength including mixture of closed and open kinetic chain exercises . Debility: PT & OT will work on improving overall functional status to improve participation with ADLs, mobility and social involvement. Fatigue: PT & OT will work on improving endurance through aerobic exercises and therapeutic activity while monitoring patients tolerance for activity and vital signs as needed. DVT ppx: Heparin Pain: Continue physical modalities in therapy and pain medications as needed to achieve functional pain control. Sleep: Monitor and address as needed. Bowel: Monitor and address as needed. Appetite: Monitor and address as needed. Discharge planning: Pending therapy progress and care plan meeting. Will continue discussion with therapy team, SW, patient and family. Plan to discharge on September 16. Patient will need wheelchair, 3 in 1 and possibly a hospital bed pending ability to improve mobility. Restrictions/ Precautions: Falls, aspiration, right hemiparesis WB status: FWB Functional Hx: ADLs: Independent Cognition: Independent Mobility: No AD Barriers to Discharge: Decreased mobility and ability to perform self care, balance deficits, weakness Estimated Length of Stay: 1421 days Discharge Destination: Home with family
[2019-09-09] MEDS: carvediloL 6.25 MG TAB FEEDTUBE SCH ×2 (15:47→21:44)
[2019-09-09] MEDS: LISINOPRIL 5 MG TAB FEEDTUBE SCH (15:47)
[2019-09-10] MEDS: HEPARIN 5,000 UNIT/1 ML VIAL SUB-Q SCH ×3 (06:10→21:39)
[2019-09-10] MEDS: INSULIN LISPRO 100 UNIT/ML SUB-Q SCH ×3 (08:29→16:45)
[2019-09-10] MEDS: ARFORMOTEROL 15 MCG/2 ML NEBU IH SCH ×2 (08:35→20:00)
[2019-09-10] MEDS: BUDESONIDE 0.5 MG/2 ML NEBU IH SCH ×2 (08:35→20:00)
[2019-09-10] MEDS: LANSOPRAZOLE 30 MG SOLUTAB FEEDTUBE SCH (08:40)
[2019-09-10] MEDS: predniSONE 5 MG/5 ML ORAL LIQUID FEEDTUBE SCH (08:40)
[2019-09-10] MEDS: FUROSEMIDE 40 MG TAB FEEDTUBE SCH (08:41)
[2019-09-10] MEDS: ASPIRIN 81 MG TAB CHEW FEEDTUBE SCH (08:41)
[2019-09-10] MEDS: CLOPIDOGREL 75 MG TAB FEEDTUBE SCH (08:41)
[2019-09-10] MEDS: metFORMIN 500 MG TAB FEEDTUBE SCH ×2 (08:41→19:01)
[2019-09-10] MEDS: MODAFINIL 100 MG TAB FEEDTUBE SCH ×2 (08:41→10:35)
--- NOTE | 2019-09-10 13:45 | Progress Note ---
Subjective Date of service: 09/10/19 Principal diagnosis: CVA with right nondominant hemiplegia Interval history: 63-year-old male who presented to the ER 08/10/19 after experiencing a right-sided facial droop with slurred speech that started the night before. CT head was taken and showed a left MCA infarct. tPA was not administered as the patient was outside the window. Neurology was consulted. CTA head and neck were also ordered, no stenosis seen in the right or left carotid, no significant stenosis noted in the vasculature of the head except in the left M2 branch near the origin. Patient was placed on appropriate secondary stroke prevention medication with DAPT. While on the espinosa he was noted upon examination to have respiratory distress along with diffuse wheezing. Suctioning was performed and food products were removed from his airway. He was transferred to the ICU and intubated. Stat chest CT was completed but did not reveal any plugging or obstructions. Patient was started on IV antibiotics for presumed aspiration pneumonia. He was seen by speech therapy and noted to have severe dysphagia. Initially he had a NG tube placed which was dislodged. Underwent MBS which showed stephani aspiration and oral pharyngeal dysphagia. He was then scheduled for PEG tube placement which occurred on August 21, 2019 and was performed by Dr. Gaudencio Gonzales. The tube is traction pull and once it is no longer needed may be pulled after [address] weeks of [address] in [address]. Unfortunately it appears he may continue to have need for this. Currently is n.p.o. with ice chips after appropriate oral care, will continue n.p.o. and only start ice chips once speech therapy feels this is safe. Patient is left-hand dominant and has severe right-sided hemiparesis. Fortunately for him he does have some recovery of right-sided strength whereas before he was completely flaccid per outside records. Continues to have right foot drop. Echocardiogram on August 11, 2019 showed an EF of 25 to 30% with mildly dilated left ventricle and a grade 2 diastolic dysfunction. There is also mention of an abnormal stress test that the outside hospital with an incomplete date that appears to show an abnormal perfusion scan demonstrating a large defect of severe intensity in the basal, mid and apical anterior wall. Cardiology recommended a ischemic work-up via left heart cath as an outpatient once he is recovered. There was question as to whether the patient has obstructive sleep apnea and outpatient follow-up was also recommended for this to perform a sleep study. Patient was not transferred on CPAP which was apparently discontinued during his stay in the outside hospital. He was also found to have type 2 diabetes with an A1c of 6.9. New diagnoses for this patient this admission include CVA, CHF, pulmonary hypertension, diabetes type 2, hypertension. Previously patient had only been diagnosed with COPD and is a former smoker having quit approximately 1 year ago. Interval History: Patient is participating in therapy and making reasonable progress. Taking rest breaks as needed. +BM, not charted. Afebrile. Denies pain, palpitations, dyspnea, cough, N/V, weakness, or joint pain. CVA with right nondominant hemiparesis: Tolerating secondary stroke prevention without signs of bleeding. No signs of worsening deficits due to CVA. No shoulder-hand syndrome appreciated. Slight motion detected on exam of distal RUE. COPD: Continue inhalers. No issues with dyspnea today. Able to ambulate without supplemental oxygen today. Discussed with nursing, will start to wean oxygen and only use as needed. Dehydration: Tolerated IV fluids. Continue to monitor. May also increase water flushes. Blood pressure Slightly improved after IV fluids. Dyspnea on exertion: No issues today. Patient is breathing well. Lungs sound clear. Continue to monitor for any issues and remind the patient to continue breathing when doing therapy. CHF: Seems to be well controlled, monitor fluid status and edema along with daily weights. Continue medications and adjust as needed. BNP elevated, do not have baseline other than the value that we just received. No signs of crackles or swelling in the lower extremities. Look back over outside hospital records and the patient was seen by [facility] Dr. Presley Dunn. Echo was done on 08/10 and he has been diagnosed with chronic combined heart failure with an EF of 25 to 30% mildly dilated left ventricle. Attempted to contact Dr. Dunn and am awaiting callback. Would like to ensure he is being treated appropriately with his current medical regimen. We will continue Lasix, however Coreg and lisinopril are both being held due to hypotension. Hypertension: Blood pressures are stable, and on the lower side. Monitor patient closely for any signs or symptoms of hypertension or CHF exacerbation. Medications are being held due to hypotension. Continue to monitor Diabetes type 2: Continue medications. Continue sliding scale. Glucose levels are variable and have been low recently. Will reduce sliding scale insulin amount. Continue to monitor Dysphagia: Did well on barium swallow, could not tolerate mechanical soft due to poor oral management of foods, placed on full liquids and will advance from there. He is getting bolus feeding now. Continue to monitor Right foot drop: On initial exam patient was unable to dorsiflex his right foot however he has the ability to do this a little more, worse in supine position. We will continue to monitor to see if this continues or if this is an intermittent issue. For the time being will hold off on AFO. Dysarthria: Stable at this point. Continue work with speech in order to improve. Right shoulder subluxation: Stable, reminded patient to continue to elevate the arm and to monitor it. No signs of shoulder-hand syndrome currently. All records, vitals, labs and medications were reviewed. No other issues per patient, nursing or therapy. Objective - Exam Narrative Exam: MUSCULOSKELETAL SPECIALTY EXAM CONSTITUTIONAL: Well developed, well nourished, appropriately groomed. LEFT hand dominant. RESPIRATORY: Clear to auscultation bilaterally, no increased work of breathing CARDIOVASCULAR: Regular Rate/ Rhythm, no swelling, edema or tenderness in BUE or BLE. All extremities warm. GI: + bowel sounds, soft, NTTP, nondistended. PEG tube in place INTEGUMENTARY: Normal, no lesion, rash, masses or bruising noted in extremities. MUSCULOSKELETAL: Right-sided hemiparesis with slight shoulder sublux, otherwise BUE and BLE normal without defect, crepitus, subluxation, effusion, arthritic changes or TTP. SA EF WE EE FF FA HF KE ADF EHL APF R 2/5 3/5 1/5 0/5 1/5 0/5 4-/5 4-/5 3/5 3/5 3/5 L 5/5 5/5 5/5 5/5 5/5 5/5 5/5 5/5 5/5 5/5 5/5 foot drop is variable depending on position for patient and sometimes on his fatigue. ROM decreased on right, slightly improved Tone increased on right upper extremity, normal elsewhere NEURO: CN VII : Right facial droop CN IX, X : Palate/uvula elevate midline, phonation abnormal CN XI : Absent shoulder shrug on right, normal head rotation CN XII : Tongue protrudes slightly right Sensation intact in all extremities without extinction. No tremor noted in 4 extremities. Naming and repetition intact. Follows 2 step commands. Aphasia not appreciated Dysarthria present Dysphagia present Neglect not appreciated POSTURE and GAIT: Sitting posture good. Balance and gait reasonable with cane. Slowed jono. PSYCH: Alert, oriented x3, affect appears euthymic sometimes slightly flat. Insight appears intact. - Constitutional Vitals: Vital Signs - 12hr 09/10/19 09/10/19 09/10/19 05:24 05:25 07:40 Temperature 98.3 F 97.7 F Pulse Rate 67 69 Pulse Rate [ Anterior Bilateral Throughout] Respiratory 18 18 Rate Respiratory Rate [Anterior Bilateral Throughout] Blood Pressure 107/61 O2 Sat by Pulse 95 95 Oximetry 09/10/19 09/10/19 07:41 08:37 Temperature Pulse Rate 71 Pulse Rate [ 82 Anterior Bilateral Throughout] Respiratory Rate Respiratory 16 Rate [Anterior Bilateral Throughout] Blood Pressure 99/66 O2 Sat by Pulse 94 94 Oximetry - Allied health notes Allied health notes reviewed: nursing, PT, ST, OT FIMS assessment as documented by PT/OT/ST: Social interaction/Memory/Problem solving Social Interaction FIM Score 5. Supervision (Needs supv. <10%. Needs encouragement to participate.) Memory FIM Score 5. Supervision (Needs cueing <10%, stressful/ unfamiliar situations.) Problem Solving FIM Score 4. Minimal Assistance (Solves routine problems 75-90%.) Transfers Mode of Locomotion: Wheelchair Bed/Chair/Wheelchair Transfers 4. Minimal Assistance (Patient = 75% or more. FIM Score Needs touching.) Locomotion- walk/wheelchair Ambulation Distance 10 Dressing-lower body Patient retrieves clothing No items: Lower Body Dressing FIM Score 3. Moderate Assistance (Patient = 50% or more) - Labs CBC & Chem 7: 09/09/19 06:44 09/09/19 06:44 Labs: Laboratory Results - last 72 hr 09/07/19 09/07/19 09/08/19 16:19 21:10 07:52 WBC RBC Hgb Hct MCV MCH MCHC RDW Plt Count Sodium Potassium Chloride Carbon Dioxide Anion Gap BUN Creatinine Estimated GFR BUN/Creatinine Ratio Glucose POC Glucose 204 H 93 83 Calcium NT-Pro-B Natriuret Pep 09/08/19 09/08/19 09/08/19 11:45 16:19 22:16 WBC RBC Hgb Hct MCV MCH MCHC RDW Plt Count Sodium Potassium Chloride Carbon Dioxide Anion Gap BUN Creatinine Estimated GFR BUN/Creatinine Ratio Glucose POC Glucose 190 H 115 H 163 H Calcium NT-Pro-B Natriuret Pep 09/09/19 09/09/19 09/09/19 06:44 06:44 07:47 WBC 6.8 RBC 4.77 Hgb 14.2 Hct 42.8 MCV 90 MCH 30 MCHC 33 RDW 12.9 L Plt Count 195 Sodium 140 Potassium 4.7 Chloride 98.1 Carbon Dioxide 29 Anion Gap 18 BUN 13 Creatinine 0.9 Estimated GFR > 60 BUN/Creatinine Ratio 14 Glucose 108 H POC Glucose 80 Calcium 9.8 NT-Pro-B Natriuret Pep 2661 H 09/09/19 09/09/19 09/09/19 11:17 16:01 21:22 WBC RBC Hgb Hct MCV MCH MCHC RDW Plt Count Sodium Potassium Chloride Carbon Dioxide Anion Gap BUN Creatinine Estimated GFR BUN/Creatinine Ratio Glucose POC Glucose 123 H 151 H 106 H Calcium NT-Pro-B Natriuret Pep 09/10/19 09/10/19 07:53 12:07 WBC RBC Hgb Hct MCV MCH MCHC RDW Plt Count Sodium Potassium Chloride Carbon Dioxide Anion Gap BUN Creatinine Estimated GFR BUN/Creatinine Ratio Glucose POC Glucose 89 133 H Calcium NT-Pro-B Natriuret Pep Assessment and Plan CVA with right nondominant hemiparesis: Continue secondary stroke protocol with DAPT. Continue to monitor for recurrent CVA, post stroke depression, shoulder- hand syndrome. Monitor skin for any new wounds and monitor positioning to reduce chance of new ones. No driving until cleared by neurology, follow-up with neurology after discharge. Discussion held with patient as well as concerning prognosis, secondary stroke prevention, and plan of care for stroke recovery. Smoking cessation conversation held with as well as patient on admission COPD: Continue medications as ordered. Supplemental O2 as needed. Monitor for signs symptoms of exacerbation. Respiratory therapy consult. Dehydration: Tolerated IV fluids. Have already increased tube feed flushes. Labs improved, continue to monitor. Lasix reduced CHF: Monitor for CHF exacerbation. Daily weights, nursing notify for weight gain greater than 5 pounds in 1 week. Lifestyle modifications discussed (weight loss, tobacco cessation, decrease sodium intake). Continue loop diuretics, be ta-seven and BECCA inhibitor as tolerated. Beta-seven and BECCA inhibitor both being held due to hypotension. Call placed and am awaiting return call from shop superintendent. Hypertension: Continue medication. Monitor blood pressure and adjust medications as needed for normotension. Hold for hypotension Diabetes type 2: Patient currently on tube feeds. Will monitor blood glucose and continue sliding scale insulin and newly started metformin. Adjust medications as needed for normal glycemia. Dysphagia: Continue n.p.o. with tube feeds. [place] to monitor and advance diet as able and perform FEES, MBSS or e-stim as needed. Right foot drop: Continue therapy. Monitor foot placement to avoid injury. Seems improved. May need to order custom AFO, will make decision as we work with him. Right shoulder subluxation: Continue support right upper extremity with either sling and/or arm tray in the wheelchair. Monitor for worsening continue strengthening and e-stim as needed for improvement. No current signs of shoulder-hand syndrome continue to monitor for any signs or symptoms. Right facial droop: Continue therapy for strengthening exercises to improve facial strength. E-stim as needed. Dysarthria: Continue [place] to improve ability to speak clearly by strengthening and improving control muscles, improving breath support and slowing rate of speech. ADL dysfunction: OT will work on improving ability to perform ADLs (including assistive devices) to increase independence and decrease caregiver burden and improve functional transfers and mobility training. Difficulty walking: PT will work on gait training and proper use of assistive devices and advance as appropriate to use of stairs and outside ambulation on uneven surfaces. Unsteadiness on feet: PT will work on improving static and dynamic sitting and standing balance as well as proper use of assistive devices to decrease risk of falls. Abnormality of gait: PT will work to improve safety and efficiency of gait through neuromotor training and gait training along with instruction on proper use of assistive devices. Muscle weakness: PT & OT will work on strengthening exercises to improve functional strength including mixture of closed and open kinetic chain exercises. Debility: PT & OT will work on improving overall functional status to improve participation with ADLs, mobility and social involvement. Fatigue: PT & OT will work on improving endurance through aerobic exercises and therapeutic activity while monitoring patients tolerance for activity and vital signs as needed. DVT ppx: Heparin Pain: Continue physical modalities in therapy and pain medications as needed to achieve functional pain control. Sleep: Monitor and address as needed. Bowel: Monitor and address as needed. Appetite: Monitor and address as needed. Discharge planning: Pending therapy progress and care plan meeting. Will co ntinue discussion with therapy team, SW, patient and family. Plan to discharge on September 16. Patient will likely need cane versus wheelchair, 3 in 1 and possibly a hospital bed pending ability to improve mobility. Restrictions/ Precautions: Falls, aspiration, right hemiparesis WB status: FWB Functional Hx: ADLs: Independent Cognition: Independent Mobility: No AD Barriers to Discharge: Decreased mobility and ability to perform self care, balance deficits, weakness Estimated Length of Stay: 1421 days Discharge Destination: Home with family
[2019-09-10] MEDS: LISINOPRIL 5 MG TAB FEEDTUBE SCH (16:23)
[2019-09-10] MEDS: carvediloL 6.25 MG TAB FEEDTUBE SCH ×2 (16:23→21:40)
[2019-09-11] MEDS: HEPARIN 5,000 UNIT/1 ML VIAL SUB-Q SCH ×3 (05:49→21:13)
[2019-09-11] MEDS: ARFORMOTEROL 15 MCG/2 ML NEBU IH SCH ×2 (08:41→19:21)
[2019-09-11] MEDS: BUDESONIDE 0.5 MG/2 ML NEBU IH SCH ×2 (08:41→19:21)
[2019-09-11] MEDS: ASPIRIN 81 MG TAB CHEW FEEDTUBE SCH (08:52)
[2019-09-11] MEDS: MODAFINIL 100 MG TAB FEEDTUBE SCH ×2 (08:52→09:14)
[2019-09-11] MEDS: CLOPIDOGREL 75 MG TAB FEEDTUBE SCH (08:52)
[2019-09-11] MEDS: FUROSEMIDE 40 MG TAB FEEDTUBE SCH (08:53)
[2019-09-11] MEDS: metFORMIN 500 MG TAB FEEDTUBE SCH ×2 (08:53→16:40)
[2019-09-11] MEDS: carvediloL 6.25 MG TAB FEEDTUBE SCH ×2 (08:53→21:28)
[2019-09-11] MEDS: LISINOPRIL 5 MG TAB FEEDTUBE SCH (08:53)
[2019-09-11] MEDS: predniSONE 5 MG/5 ML ORAL LIQUID FEEDTUBE SCH (08:53)
[2019-09-11] MEDS: LANSOPRAZOLE 30 MG SOLUTAB FEEDTUBE SCH (08:53)
[2019-09-11] MEDS: INSULIN LISPRO 100 UNIT/ML SUB-Q SCH ×3 (09:14→16:18)
--- NOTE | 2019-09-11 11:43 | Progress Note ---
Subjective Date of service: 09/11/19 Principal diagnosis: CVA with right nondominant hemiplegia Interval history: 63-year-old male who presented to the ER 08/10/19 after experiencing a right-sided facial droop with slurred speech that started the night before. CT head was taken and showed a left MCA infarct. tPA was not administered as the patient was outside the window. Neurology was consulted. CTA head and neck were also ordered, no stenosis seen in the right or left carotid, no significant stenosis noted in the vasculature of the head except in the left M2 branch near the origin. Patient was placed on appropriate secondary stroke prevention medication with DAPT. While on the espinosa he was noted upon examination to have respiratory distress along with diffuse wheezing. Suctioning was performed and food products were removed from his airway. He was transferred to the ICU and intubated. Stat chest CT was completed but did not reveal any plugging or obstructions. Patient was started on IV antibiotics for presumed aspiration pneumonia. He was seen by speech therapy and noted to have severe dysphagia. Initially he had a NG tube placed which was dislodged. Underwent MBS which showed stephani aspiration and oral pharyngeal dysphagia. He was then scheduled for PEG tube placement which occurred on August 21, 2019 and was performed by Dr. Gaudencio Gonzales. The tube is traction pull and once it is no longer needed may be pulled after [address] weeks of being in [address]. Unfortunately it appears he may continue to have need for this. Currently is n.p.o. with ice chips after appropriate oral care, will continue n.p.o. and only start ice chips once speech therapy feels this is safe. Patient is left-hand dominant and has severe right-sided hemiparesis. Fortunately for him he does have some recovery of right-sided strength whereas before he was completely flaccid per outside records. Continues to have right foot drop. Echocardiogram on August 11, 2019 showed an EF of 25 to 30% with mildly dilated left ventricle and a grade 2 diastolic dysfunction. There is also mention of an abnormal stress test that the outside hospital with an incomplete date that appears to show an abnormal perfusion scan demonstrating a large defect of severe intensity in the basal, mid and apical anterior wall. Cardiology recommended a ischemic work-up via left heart cath as an outpatient once he is recovered. There was question as to whether the patient has obstructive sleep apnea and outpatient follow-up was also recommended for this to perform a sleep study. Patient was not transferred on CPAP which was apparently discontinued during his stay in the outside hospital. He was also found to have type 2 diabetes with an A1c of 6.9. New diagnoses for this patient this admission include CVA, CHF, pulmonary hypertension, diabetes type 2, hypertension. Previously patient had only been diagnosed with COPD and is a former smoker having quit approximately 1 year ago. Interval History: Patient is participating in therapy and making reasonable progress. Taking rest breaks as needed. +BM, not charted. Afebrile. Denies pain, palpitations, dyspnea, cough, N/V, weakness, or joint pain. CVA with right nondominant hemiparesis: Tolerating secondary stroke prevention without signs of bleeding. No signs of worsening deficits due to CVA. No shoulder-hand syndrome appreciated. Slight motion detected on exam of distal RUE. COPD: Continue inhalers. Discussed with nursing, will start to wean oxygen and only use as needed. Having occasional episodes of dyspnea with exertion, asym ptomatic, quick recovery - possibly related to CHF. Dehydration: Continue to monitor. Dyspnea on exertion: Patient is breathing well. Lungs sound clear. Continue to monitor for any issues and remind the patient to continue breathing when doing therapy. Intermittent, possibly related to CHF CHF: Seems to be well controlled, monitor fluid status and edema along with daily weights. Continue medications and adjust as needed. BNP elevated, do not have baseline other than the value that we just received. No signs of crackles or swelling in the lower extremities. Look back over outside hospital records and the patient was seen by [facility] Dr. Presley Dunn. Echo was done on 08/10 and he has been diagnosed with chronic combined heart failure with an EF of 25 to 30% mildly dilated left ventricle. Attempted to contact Dr. Dunn and am awaiting callback. Would like to ensure he is being treated appropriately with his current medical regimen. We will continue Lasix, however Coreg being held due to hypotension. Will d/c lisinopril. Hypertension: Blood pressures are stable, and on the lower side. Monitor patient closely for any signs or symptoms of hypertension or CHF exacerbation. Medications are being held due to hypotension. D/c lisinopril. Continue to monit or Diabetes type 2: Continue medications. Continue sliding scale. Glucose levels have improved. Continue to monitor Dysphagia: Did well on barium swallow, mechanical soft now. He is getting bolus feeding as well, will look to d/c soon. Continue to monitor Right foot drop: On initial exam patient was unable to dorsiflex his right foot however he has the ability to do this a little more, worse in supine position. We will continue to monitor to see if this continues or if this is an inter mittent issue. For the time being will hold off on AFO. Dysarthria: Stable at this point. Continue work with speech in order to improve. Right shoulder subluxation: Stable, reminded patient to continue to elevate the arm and to monitor it. No signs of shoulder-hand syndrome currently. All records, vitals, labs and medications were reviewed. No other issues per patient, nursing or therapy. Discussed in team conference. Doing fairly well overall and will be ready to discharge next week. Hope to have him off of TF at that time. Utilizing SPC with PT, still has right sided inattention. Cognitive issues continue, will need supervision at home. Objective - Exam Narrative Exam: MUSCULOSKELETAL SPECIALTY EXAM CONSTITUTIONAL: Well developed, well nourished, appropriately groomed. LEFT hand dominant. RESPIRATORY: Clear to auscultation bilaterally,no crackles, no increased work of breathing CARDIOVASCULAR: Regular Rate/ Rhythm, no swelling, edema or tenderness in BUE or BLE. All extremities warm. GI: + bowel sounds, soft, NTTP, nondistended. PEG tube in place INTEGUMENTARY: Normal, no lesion, rash, masses or bruising noted in extremities. MUSCULOSKELETAL: Right-sided hemiparesis with slight shoulder sublux, otherwise BUE and BLE normal without defect, crepitus, subluxation, effusion, arthritic changes or TTP. SA EF WE EE FF FA HF KE ADF EHL APF R 2/5 3/5 1/5 0/5 1/5 0/5 4-/5 4-/5 3/5 3/5 3/5 L 5/5 5/5 5/5 5/5 5/5 5/5 5/5 5/5 5/5 5/5 5/5 foot drop is variable depending on position for patient and sometimes on his fatigue. ROM decreased on right, slightly improved Tone increased on right upper extremity, normal elsewhere NEURO: CN VII : Right facial droop CN IX, X : Palate/uvula elevate midline, phonation abnormal CN XI : Absent shoulder shrug on right, normal head rotation CN XII : Tongue protrudes slightly right Sensation intact in all extremities without extinction. No tremor noted in 4 extremities. Naming and repetition intact. Follows 2 step commands. Aphasia not appreciated Dysarthria present Dysphagia present Neglect not appreciated POSTURE and GAIT: Sitting posture good. Balance and gait reasonable with cane. Slowed jono. PSYCH: Alert, oriented x3, affect appears euthymic sometimes slightly flat. Insight appears intact. - Constitutional Vitals: Vital Signs - 12hr 09/11/19 09/11/19 09/11/19 00:30 04:07 07:38 Temperature 97.8 F 98.1 F 97.4 F L Pulse Rate 73 80 80 Pulse Rate [ Anterior Bilateral Throughout] Respiratory 17 17 16 Rate Respiratory Rate [Anterior Bilateral Throughout] Blood Pressure 97/62 122/72 Blood Pressure 120/68 [Left] O2 Sat by Pulse 94 92 95 Oximetry 09/11/19 09/11/19 09/11/19 08:41 08:42 08:53 Temperature Pulse Rate 93 H Pulse Rate [ 93 H Anterior Bilateral Throughout] Respiratory Rate Respiratory 16 Rate [Anterior Bilateral Throughout] Blood Pressure 122/72 Blood Pressure [Left] O2 Sat by Pulse 99 Oximetry - Allied health notes Allied health notes reviewed: nursing, PT, ST, OT FIMS assessment as documented by PT/OT/ST: Social interaction/Memory/Problem solving Social Interaction FIM Score 5. Supervision (Needs supv. <10%. Needs encouragement to participate.) Memory FIM Score 5. Supervision (Needs cueing <10%, stressful/ unfamiliar situations.) Problem Solving FIM Score 4. Minimal Assistance (Solves routine problems 75-90%.) Transfers Mode of Locomotion: Wheelchair Bed/Chair/Wheelchair Transfers 4. Minimal Assistance (Patient = 75% or more. FIM Score Needs touching.) Locomotion- walk/wheelchair Ambulation Distance 10 Dressing-lower body Patient retrieves clothing No items: Lower Body Dressing FIM Score 3. Moderate Assistance (Patient = 50% or more) - Labs CBC & Chem 7: 09/09/19 06:44 09/09/19 06:44 Labs: Laboratory Results - last 72 hr 09/08/19 09/08/19 09/09/19 16:19 22:16 06:44 WBC 6.8 RBC 4.77 Hgb 14.2 Hct 42.8 MCV 90 MCH 30 MCHC 33 RDW 12.9 L Plt Count 195 Sodium Potassium Chloride Carbon Dioxide Anion Gap BUN Creatinine Estimated GFR BUN/Creatinine Ratio Glucose POC Glucose 115 H 163 H Calcium NT-Pro-B Natriuret Pep 09/09/19 09/09/19 09/09/19 06:44 07:47 11:17 WBC RBC Hgb Hct MCV MCH MCHC RDW Plt Count Sodium 140 Potassium 4.7 Chloride 98.1 Carbon Dioxide 29 Anion Gap 18 BUN 13 Creatinine 0.9 Estimated GFR > 60 BUN/Creatinine Ratio 14 Glucose 108 H POC Glucose 80 123 H Calcium 9.8 NT-Pro-B Natriuret Pep 2661 H 09/09/19 09/09/19 09/10/19 16:01 21:22 07:53 WBC RBC Hgb Hct MCV MCH MCHC RDW Plt Count Sodium Potassium Chloride Carbon Dioxide Anion Gap BUN Creatinine Estimated GFR BUN/Creatinine Ratio Glucose POC Glucose 151 H 106 H 89 Calcium NT-Pro-B Natriuret Pep 09/10/19 09/10/19 09/10/19 12:07 16:33 21:21 WBC RBC Hgb Hct MCV MCH MCHC RDW Plt Count Sodium Potassium Chloride Carbon Dioxide Anion Gap BUN Creatinine Estimated GFR BUN/Creatinine Ratio Glucose POC Glucose 133 H 136 H 89 Calcium NT-Pro-B Natriuret Pep 09/11/19 09/11/19 07:19 11:41 WBC RBC Hgb Hct MCV MCH MCHC RDW Plt Count Sodium Potassium Chloride Carbon Dioxide Anion Gap BUN Creatinine Estimated GFR BUN/Creatinine Ratio Glucose POC Glucose 120 H 118 H Calcium NT-Pro-B Natriuret Pep Assessment and Plan CVA with right nondominant hemiparesis: Continue secondary stroke protocol with DAPT. Continue to monitor for recurrent CVA, post stroke depression, shoulder- hand syndrome. Monitor skin for any new wounds and monitor positioning to reduce chance of new ones. No driving until cleared by neurology, follow-up with neurology after discharge. Discussion held with patient as well as concerning prognosis, secondary stroke prevention, and plan of care for stroke recovery. Smoking cessation conversation held with as well as patient on admission COPD: Continue medications as ordered. Supplemental O2 as needed. Monitor for signs symptoms of exacerbation. Respiratory therapy consult. Dehydration: Tolerated IV fluids. Have already increased tube feed flushes. Labs improved, continue to monitor. Lasix reduced CHF: Monitor for CHF exacerbation. Daily weights, nursing notify for weight gain greater than 5 pounds in 1 week. Lifestyle modifications discussed (weight loss, tobacco cessation, decrease sodium intake). Continue loop diuretics, beta-seven as tolerated. Beta-seven both being held due to hypotension. 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 Hypertension: Continue medication. Monitor blood pressure and adjust medications as needed for normotension. Hold for hypotension Diabetes type 2: Patient currently on tube feeds and oral diet. Will monitor blood glucose and continue sliding scale insulin and newly started metformin. Adjust medications as needed for normal glycemia. Dysphagia: Advanced to [facility] Soft. PERSONAL TRAINER to monitor and advance diet as able and perform FEES, MBSS or e-stim as needed. Right foot drop: Continue therapy. Monitor foot placement to avoid injury. Seems improved. May need to order custom AFO, will make decision as we work with him. Right shoulder subluxation: Continue support right upper extremity with either sling and/or arm tray in the wheelchair. Monitor for worsening continue strengthening and e-stim as needed for improvement. No current signs of shoulder-hand syndrome continue to monitor for any signs or symptoms. Right facial droop: Continue therapy for strengthening exercises to improve facial strength. E-stim as needed. Dysarthria: Continue PERSONAL TRAINER to improve ability to speak clearly by strengthening and improving control muscles, improving breath support and slowing rate of speech. ADL dysfunction: OT will work on improving ability to perform ADLs (including assistive devices) to increase independence and decrease caregiver burden and improve functional transfers and mobility training. Difficulty walking: PT will work on gait training and proper use of assistive devices and advance as appropriate to use of stairs and outside ambulation on uneven surfaces. Unsteadiness on feet: PT will work on improving static and dynamic sitting and standing balance as well as proper use of assistive devices to decrease risk of falls. Abnormality of gait: PT will work to improve safety and efficiency of gait through neuromotor training and gait training along with instruction on proper use of assistive devices. Muscle weakness: PT & OT will work on strengthening exercises to improve functional strength including mixture of closed and open kinetic chain exercises. Debility: PT & OT will work on improving overall functional status to improve participation with ADLs, mobility and social involvement. Fatigue: PT & OT will work on improving endurance through aerobic exercises and therapeutic activity while monitoring patients tolerance for activity and vital signs as needed. DVT ppx: Heparin Pain: Continue physical modalities in therapy and pain medications as needed to achieve functional pain control. Sleep: Monitor and address as needed. Bowel: Monitor and address as needed. Appetite: Monitor and address as needed. Discharge planning: Pending therapy progress and care plan meeting. Will continue discussion with therapy team, SW, patient and family. Plan to discharge on September 16. Patient will likely need cane, 3 in 1 and possibly a hospital bed pending ability to improve mobility. Restrictions/ Precautions: Falls, aspiration, right hemiparesis WB status: FWB Functional Hx: ADLs: Independent Cognition: Independent Mobility: No AD Barriers to Discharge: Decreased mobility and ability to perform self care, ba abby deficits, weakness Estimated Length of Stay: 1421 days Discharge Destination: Home with family
[2019-09-12] MEDS: HEPARIN 5,000 UNIT/1 ML VIAL SUB-Q SCH ×3 (05:37→21:58)
[2019-09-12] MEDS: INSULIN LISPRO 100 UNIT/ML SUB-Q SCH ×3 (07:52→17:27)
[2019-09-12] MEDS: ARFORMOTEROL 15 MCG/2 ML NEBU IH SCH ×2 (08:27→21:30)
[2019-09-12] MEDS: BUDESONIDE 0.5 MG/2 ML NEBU IH SCH ×2 (08:27→21:30)
--- NOTE | 2019-09-12 09:32 | Progress Note ---
Subjective Date of service: 09/12/19 Principal diagnosis: CVA with right nondominant hemiplegia Interval history: 63-year-old male who presented to the ER 08/10/19 after experiencing a right-sided facial droop with slurred speech that started the night before. CT head was taken and showed a left MCA infarct. tPA was not administered as the patient was outside the window. Neurology was consulted. CTA head and neck were also ordered, no stenosis seen in the right or left carotid, no significant stenosis noted in the vasculature of the head except in the left M2 branch near the origin. Patient was placed on appropriate secondary stroke prevention medication with DAPT. While on the espinosa he was noted upon examination to have respiratory distress along with diffuse wheezing. Suctioning was performed and food products were removed from his airway. He was transferred to the ICU and intubated. Stat chest CT was completed but did not reveal any plugging or obstructions. Patient was started on IV antibiotics for presumed aspiration pneumonia. He was seen by speech therapy and noted to have severe dysphagia. Initially he had a NG tube placed which was dislodged. Underwent MBS which showed stephani aspiration and oral pharyngeal dysphagia. He was then scheduled for PEG tube placement which occurred on August 21, 2019 and was performed by Dr. Gaudencio Gonzales. The tube is traction pull and once it is no longer needed may be pulled after [address] weeks of being in [address]. Unfortunately it appears he may continue to have need for this. Currently is n.p.o. with ice chips after appropriate oral care, will continue n.p.o. and only start ice chips once speech therapy feels this is safe. Patient is left-hand dominant and has severe right-sided hemiparesis. Fortunately for him he does have some recovery of right-sided strength whereas before he was completely flaccid per outside records. Continues to have right foot drop. Echocardiogram on August 11, 2019 showed an EF of 25 to 30% with mildly dilated left ventricle and a grade 2 diastolic dysfunction. There is also mention of an abnormal stress test that the outside hospital with an incomplete date that appears to show an abnormal perfusion scan demonstrating a large defect of severe intensity in the basal, mid and apical anterior wall. Cardiology recommended a ischemic work-up via left heart cath as an outpatient once he is recovered. There was question as to whether the patient has obstructive sleep apnea and outpatient follow-up was also recommended for this to perform a sleep study. Patient was not transferred on CPAP which was apparently discontinued during his stay in the outside hospital. He was also found to have type 2 diabetes with an A1c of 6.9. New diagnoses for this patient this admission include CVA, CHF, pulmonary hypertension, diabetes type 2, hypertension. Previously patient had only been diagnosed with COPD and is a former smoker having quit approximately 1 year ago. Interval History: Patient is participating in therapy and making reasonable progress. Taking rest breaks as needed. -BM. Afebrile. Denies pain, palpitations, dyspnea, cough, N/V, or joint pain. CVA with right nondominant hemiparesis: Tolerating secondary stroke prevention without signs of bleeding. No signs of worsening deficits due to CVA. No shoulder-hand syndrome appreciated. Slight motion detected on exam of distal RUE, not enough for movement with gravity removed but is able to flex slightly against gravity. Still having issues with right inattention. Working on scanning and other strategies to improve. COPD: Continue inhalers. Discussed with nursing, will start to wean oxygen and only use as needed. Having occasional episodes of dyspnea with exertion, asymptomatic, quick recovery - possibly related to CHF. Dehydration: Continue to monitor. Dyspnea on exertion: Patient is breathing well. Lungs sound clear. Continue to monitor for any issues and remind the patient to continue breathing when doing therapy. Intermittent, possibly related to CHF CHF: Seems to be well controlled, monitor fluid status and edema along with daily weights. Continue medications and adjust as needed. BNP elevated, do not have baseline other than the value that we just received. No signs of crackles or swelling in the lower extremities. Look back over outside hospital records and the patient was seen by [facility] Dr. Presley Dunn. Echo was done on 08/10 and he has been diagnosed with chronic combined heart failure with an EF of 25 to 30% mildly dilated left ventricle. Attempted to contact Dr. Dunn and am awaiting callback. Would like to ensure he is being treated appropr iately with his current medical regimen. We will continue Lasix, however Coreg being held due to hypotension. Hypertension: Blood pressures are stable, and on the lower side. Monitor patient closely for any signs or symptoms of hypertension or CHF exacerbation. Medications are being held due to hypotension. Continue to monitor Diabetes type 2: Continue medications. Continue sliding scale. Glucose levels have improved, also weaning off of steroids which may improve glucose levels even more, may be able to DC sliding scale insulin afterwards. Continue to monitor Dysphagia: Mechanical soft now and tolerating. He is getting bolus feeding as well, will look to d/c soon. Continue to monitor. Speech following with e-stim for improvement Right foot drop: On initial exam patient was unable to dorsiflex his right foot however he has the ability to do this a little more, worse in supine position. We will continue to monitor to see if this continues or if this is an intermittent issue. For the time being will hold off on AFO. Dysarthria: Stable at this point. Continue work with speech in order to improve. Right shoulder subluxation: Stable, reminded patient to continue to elevate the arm and to monitor it. No signs of shoulder-hand syndrome currently. All records, vitals, labs and medications were reviewed. No other issues per patient, nursing or therapy. Objective - Exam Narrative Exam: MUSCULOSKELETAL SPECIALTY EXAM CONSTITUTIONAL: Well developed, well nourished, appropriately groomed. LEFT hand dominant. RESPIRATORY: Clear to auscultation bilaterally,no crackles, no increased work of breathing CARDIOVASCULAR: Regular Rate/ Rhythm, no swelling, edema or tenderness in BUE or BLE. All extremities warm. GI: + bowel sounds, soft, NTTP, nondistended. PEG tube in place INTEGUMENTARY: Normal, no lesion, rash, masses or bruising noted in extremities. MUSCULOSKELETAL: Right-sided hemiparesis with slight shoulder sublux, otherwise BUE and BLE normal without defect, crepitus, subluxation, effusion, arthritic changes or TTP. SA EF WE EE FF FA HF KE ADF EHL APF R 2/5 3/5 1/5 0/5 1/5 0/5 4-/5 4-/5 3/5 3/5 3/5 L 5/5 5/5 5/5 5/5 5/5 5/5 5/5 5/5 5/5 5/5 5/5 foot drop is variable depending on position for patient and sometimes on his fatigue. ROM decreased on right, slightly improved Tone increased on right upper extremity, normal elsewhere NEURO: CN VII : Right facial droop CN IX, X : Palate/uvula elevate midline, phonation abnormal CN XI : Absent shoulder shrug on right, normal head rotation CN XII : Tongue protrudes slightly right Sensation intact in all extremities without extinction. No tremor noted in 4 extremities. Naming and repetition intact. Follows 2 step commands. Aphasia not appreciated Dysarthria present Dysphagia present Neglect not appreciated but he is still having issues with right inattention when ambulating POSTURE and GAIT: Sitting posture good. Balance and gait reasonable with cane. Slowed jono. PSYCH: Alert, oriented x3, affect appears euthymic sometimes slightly flat. Insight appears intact. - Constitutional Vitals: Vital Signs - 12hr 09/12/19 09/12/19 09/12/19 00:08 04:36 07:42 Temperature 98.7 F 98.3 F 98.5 F Pulse Rate 79 75 85 Pulse Rate [ Anterior Bilateral Throughout] Respiratory 20 18 18 Rate Respiratory Rate [Anterior Bilateral Throughout] Blood Pressure 101/60 99/56 96/58 O2 Sat by Pulse 96 94 93 Oximetry 09/12/19 08:27 Temperature Pulse Rate Pulse Rate [ 90 Anterior Bilateral Throughout] Respiratory Rate Respiratory 18 Rate [Anterior Bilateral Throughout] Blood Pressure O2 Sat by Pulse 96 Oximetry - Allied health notes Allied health notes reviewed: nursing, PT, ST, OT FIMS assessment as documented by PT/OT/ST: Toileting Toileting Device Commode over Toilet Patient able to: Adjust clothes before,Clean self,Adjust clothes after Patient able to perform: 3/3 (100%) Toileting FIM Score 6. Modified [place] (Needs equip. or prosth ./orth.) Social interaction/Memory/Problem solving Social Interaction FIM Score 5. Supervision (Needs supv. <10%. Needs encouragement to participate.) Memory FIM Score 5. Supervision (Needs cueing <10%, stressful/ unfamiliar situations.) Problem Solving FIM Score 4. Minimal Assistance (Solves routine problems 75-90%.) Transfers Mode of Locomotion: Walking Bed/Chair/Wheelchair Transfers 4. Minimal Assistance (Patient = 75% or more. FIM Score Needs touching.) Toilet Transfers FIM Score 6. Modified [place] (Uses device, special seat or more time.) Locomotion- walk/wheelchair Ambulation Distance 10 Dressing-lower body Patient retrieves clothing No items: Lower Body Dressing FIM Score 3. Moderate Assistance (Patient = 50% or more) - Labs CBC & Chem 7: 09/09/19 06:44 09/09/19 06:44 Labs: Laboratory Results - last 72 hr 09/09/19 09/09/19 09/09/19 11:17 16:01 21:22 POC Glucose 123 H 151 H 106 H 09/10/19 09/10/19 09/10/19 07:53 12:07 16:33 POC Glucose 89 133 H 136 H 09/10/19 09/11/19 09/11/19 21:21 07:19 11:41 POC Glucose 89 120 H 118 H 09/11/19 09/11/19 09/12/19 16:14 21:05 07:53 POC Glucose 114 H 101 106 H Assessment and Plan CVA with right nondominant hemiparesis: Continue secondary stroke protocol with DAPT. Continue to monitor for recurrent CVA, post stroke depression, shoulder- hand syndrome. Monitor skin for any new wounds and monitor positioning to reduce chance of new ones. No driving until cleared by neurology, follow-up with neurology after discharge. Discussion held with patient as well as concerning prognosis, secondary stroke prevention, and plan of care for stroke recovery. Smoking cessation conversation held with as well as patient on admission COPD: Continue medications as ordered. Supplemental O2 as needed. Monitor for signs symptoms of exacerbation. Respiratory therapy consult. Dehydration: Tolerated IV fluids. Have already increased tube feed flushes. Labs improved, continue to monitor. Lasix reduced CHF: Monitor for CHF exacerbation. Daily weights, nursing notify for weight gain greater than 5 pounds in 1 week. Lifestyle modifications discussed (weight loss, tobacco cessation, decrease sodium intake). Continue loop diuretics, beta-seven as tolerated. Beta-seven being held due to hypotension. Call placed and am awaiting return call from manager presentation. Hypertension: Continue medication. Monitor blood pressure and adjust medications as needed for normotension. Hold for hypotension Diabetes type 2: Patient currently on tube feeds and oral diet. Will monitor blood glucose and continue sliding scale insulin and newly started metformin. Adjust medications as needed for normal glycemia. Dysphagia: Advanced to [facility] Soft. GR[employer] M[employer] OPERATOR to monitor and advance diet as able and perform FEES, MBSS or e-stim as needed. Hope to stop tube feeds soon. Right foot drop: Continue therapy. Monitor foot placement to avoid injury. Seems improved. May need to order custom AFO, will make decision as we work with him. Right shoulder subluxation: Continue support right upper extremity with either sling and/or arm tray in the wheelchair. Monitor for worsening continue strengt hening and e-stim as needed for improvement. No current signs of shoulder-hand syndrome continue to monitor for any signs or symptoms. Right facial droop: Continue therapy for strengthening exercises to improve facial strength. E-stim as needed. Dysarthria: Continue [employer] M[employer] OPERATOR to improve ability to speak clearly by strengthening and improving control muscles, improving breath support and slowing rate of speech. ADL dysfunction: OT will work on improving ability to perform ADLs (including assistive devices) to increase independence and decrease caregiver burden and improve functional transfers and mobility training. Difficulty walking: PT will work on gait training and proper use of assistive devices and advance as appropriate to use of stairs and outside ambulation on uneven surfaces. Unsteadiness on feet: PT will work on improving static and dynamic sitting and standing balance as well as proper use of assistive devices to decrease risk of falls. Abnormality of gait: PT will work to improve safety and efficiency of gait through neuromotor training and gait training along with instruction on proper use of assistive devices. Muscle weakness: PT & OT will work on strengthening exercises to improve functional strength including mixture of closed and open kinetic chain exercises. Debility: PT & OT will work on improving overall functional status to improve participation with ADLs, mobility and social involvement. Fatigue: PT & OT will work on improving endurance through aerobic exercises and therapeutic activity while monitoring patients tolerance for activity and vital signs as needed. DVT ppx: Heparin Pain: Continue physical modalities in therapy and pain medications as needed to achieve functional pain control. Sleep: Monitor and address as needed. Bowel: Monitor and address as needed. Appetite: Monitor and address as needed. Discharge planning: Pending therapy progress and care plan meeting. Will continue discussion with therapy team, SW, patient and family. Plan to discharge on September 16. Patient will likely need cane, 3 in 1 and possibly a hospital bed pending ability to improve mobility. Restrictions/ Precautions: Falls, aspiration, right hemiparesis WB status: FWB Functional Hx: ADLs: Independent Cognition: Independent Mobility: No AD Barriers to Discharge: Decreased mobility and ability to perform self care, balance deficits, weakness Estimated Length of Stay: 1421 days Discharge Destination: Home with family
[2019-09-12] MEDS: predniSONE 5 MG/5 ML ORAL LIQUID FEEDTUBE SCH (11:38)
[2019-09-12] MEDS: MODAFINIL 100 MG TAB FEEDTUBE SCH (11:48)
[2019-09-12] MEDS: metFORMIN 500 MG TAB FEEDTUBE SCH ×2 (11:48→17:53)
[2019-09-12] MEDS: ASPIRIN 81 MG TAB CHEW FEEDTUBE SCH (11:49)
[2019-09-12] MEDS: CLOPIDOGREL 75 MG TAB FEEDTUBE SCH (11:49)
[2019-09-12] MEDS: FUROSEMIDE 40 MG TAB FEEDTUBE SCH (11:50)
[2019-09-12] MEDS: carvediloL 6.25 MG TAB FEEDTUBE SCH ×2 (12:15→21:56)
[2019-09-12] MEDS: LANSOPRAZOLE 30 MG SOLUTAB FEEDTUBE SCH (15:32)
[2019-09-13] MEDS: HEPARIN 5,000 UNIT/1 ML VIAL SUB-Q SCH ×4 (05:27→22:00)
[2019-09-13] MEDS: BUDESONIDE 0.5 MG/2 ML NEBU IH SCH (07:17)
[2019-09-13] MEDS: ARFORMOTEROL 15 MCG/2 ML NEBU IH SCH (07:18)
[2019-09-13] MEDS: FUROSEMIDE 40 MG TAB FEEDTUBE SCH (07:59)
[2019-09-13] MEDS: MODAFINIL 100 MG TAB FEEDTUBE SCH ×2 (07:59→11:25)
[2019-09-13] MEDS: LANSOPRAZOLE 30 MG SOLUTAB FEEDTUBE SCH (07:59)
[2019-09-13] MEDS: CLOPIDOGREL 75 MG TAB FEEDTUBE SCH (07:59)
[2019-09-13] MEDS: metFORMIN 500 MG TAB FEEDTUBE SCH ×2 (08:00→16:45)
[2019-09-13] MEDS: ASPIRIN 81 MG TAB CHEW FEEDTUBE SCH (08:00)
[2019-09-13] MEDS: carvediloL 6.25 MG TAB FEEDTUBE SCH ×2 (08:00→22:19)
[2019-09-13] MEDS: INSULIN LISPRO 100 UNIT/ML SUB-Q SCH ×3 (08:00→16:46)
[2019-09-14] MEDS: FUROSEMIDE 40 MG TAB FEEDTUBE SCH (08:12)
[2019-09-14] MEDS: carvediloL 6.25 MG TAB FEEDTUBE SCH ×2 (08:12→22:14)
[2019-09-14] MEDS: ASPIRIN 81 MG TAB CHEW FEEDTUBE SCH (08:12)
[2019-09-14] MEDS: MODAFINIL 100 MG TAB FEEDTUBE SCH ×2 (08:12→10:12)
[2019-09-14] MEDS: CLOPIDOGREL 75 MG TAB FEEDTUBE SCH (08:12)
[2019-09-14] MEDS: metFORMIN 500 MG TAB FEEDTUBE SCH ×2 (08:12→17:56)
[2019-09-14] MEDS: LANSOPRAZOLE 30 MG SOLUTAB FEEDTUBE SCH (08:12)
[2019-09-14] MEDS: INSULIN LISPRO 100 UNIT/ML SUB-Q SCH ×3 (08:13→17:55)
[2019-09-14] MEDS: ARFORMOTEROL 15 MCG/2 ML NEBU IH SCH ×3 (09:37→21:05)
[2019-09-14] MEDS: BUDESONIDE 0.5 MG/2 ML NEBU IH SCH ×3 (09:37→21:05)
[2019-09-14] MEDS: HEPARIN 5,000 UNIT/1 ML VIAL SUB-Q SCH ×2 (14:33→22:12)
[2019-09-15] MEDS: HEPARIN 5,000 UNIT/1 ML VIAL SUB-Q SCH ×3 (06:50→22:16)
[2019-09-15] MEDS: BUDESONIDE 0.5 MG/2 ML NEBU IH SCH ×2 (07:56→20:29)
[2019-09-15] MEDS: ARFORMOTEROL 15 MCG/2 ML NEBU IH SCH ×2 (07:56→20:30)
[2019-09-15] MEDS: MODAFINIL 100 MG TAB FEEDTUBE SCH ×2 (08:34→10:52)
[2019-09-15] MEDS: FUROSEMIDE 40 MG TAB FEEDTUBE SCH (08:34)
[2019-09-15] MEDS: metFORMIN 500 MG TAB FEEDTUBE SCH ×3 (08:34→18:18)
[2019-09-15] MEDS: ASPIRIN 81 MG TAB CHEW FEEDTUBE SCH (08:34)
[2019-09-15] MEDS: INSULIN LISPRO 100 UNIT/ML SUB-Q SCH ×3 (08:34→16:57)
[2019-09-15] MEDS: LANSOPRAZOLE 30 MG SOLUTAB FEEDTUBE SCH (08:34)
[2019-09-15] MEDS: CLOPIDOGREL 75 MG TAB FEEDTUBE SCH (08:34)
[2019-09-15] MEDS: carvediloL 6.25 MG TAB FEEDTUBE SCH ×2 (08:35→22:16)
--- NOTE | 2019-09-15 11:48 | Progress Note ---
Subjective Date of service: 09/15/19 Principal diagnosis: CVA with right nondominant hemiplegia Interval history: 63-year-old male who presented to the ER 08/10/19 after experiencing a right-sided facial droop with slurred speech that started the night before. CT head was taken and showed a left MCA infarct. tPA was not administered as the patient was outside the window. Neurology was consulted. CTA head and neck were also ordered, no stenosis seen in the right or left carotid, no significant stenosis noted in the vasculature of the head except in the left M2 branch near the origin. Patient was placed on appropriate secondary stroke prevention medication with DAPT. While on the espinosa he was noted upon examination to have respiratory distress along with diffuse wheezing. Suctioning was performed and food products were removed from his airway. He was transferred to the ICU and intubated. Stat chest CT was completed but did not reveal any plugging or obstructions. Patient was started on IV antibiotics for presumed aspiration pneumonia. He was seen by speech therapy and noted to have severe dysphagia. Initially he had a NG tube placed which was dislodged. Underwent MBS which showed stephani aspiration and oral pharyngeal dysphagia. He was then scheduled for PEG tube placement which occurred on August 21, 2019 and was performed by Dr. Gaudencio Gonzales. The tube is traction pull and once it is no longer needed may be pulled after [address] weeks of [address] in [address]. Unfortunately it appears he may continue to have need for this. Currently is n.p.o. with ice chips after appropriate oral care, will continue n.p.o. and only start ice chips once speech therapy feels this is safe. Patient is left-hand dominant and has severe right-sided hemiparesis. Fortunately for him he does have some recovery of right-sided strength whereas before he was completely flaccid per outside records. Continues to have right foot drop. Echocardiogram on August 11, 2019 showed an EF of 25 to 30% with mildly dilated left ventricle and a grade 2 diastolic dysfunction. There is also mention of an abnormal stress test that the outside hospital with an incomplete date that appears to show an abnormal perfusion scan demonstrating a large defect of severe intensity in the basal, mid and apical anterior wall. Cardiology recommended a ischemic work-up via left heart cath as an outpatient once he is recovered. There was question as to whether the patient has obstructive sleep apnea and outpatient follow-up was also recommended for this to perform a sleep study. Patient was not transferred on CPAP which was apparently discontinued during his stay in the outside hospital. He was also found to have type 2 diabetes with an A1c of 6.9. New diagnoses for this patient this admission include CVA, CHF, pulmonary hypertension, diabetes type 2, hypertension. Previously patient had only been diagnosed with COPD and is a former smoker having quit approximately 1 year ago. Interval History: Patient is participating in therapy and making reasonable progress. Taking rest breaks as needed. -BM. Afebrile. Denies pain, palpitations, dyspnea, cough, N/V, or joint pain. For some reason, labs are still not available. We will continue to monitor and treat as needed when they are available. CVA with right nondominant hemiparesis: Tolerating secondary stroke prevention without signs of bleeding. No signs of worsening deficits due to CVA. No shoulder-hand syndrome appreciated. Slight motion detected on exam of distal RUE, not enough for movement with gravity removed but is able to flex slightly against gravity. Still having issues with right inattention. Working on scanning and other strategies to improve. COPD: Continue inhalers. Discussed with nursing, will start to wean oxygen and only use as needed. Having occasional episodes of dyspnea with exertion, asymptomatic, quick recovery - possibly related to CHF. Dehydration: Continue to monitor. Labs pending Dyspnea on exertion: Patient is breathing well. Lungs sound clear. Continue to monitor for any issues and remind the patient to continue breathing when doing therapy. Intermittent, possibly related to CHF CHF: Seems to be well controlled, monitor fluid status and edema along with daily weights. Continue medications and adjust as needed. BNP elevated, do not have baseline other than the value that we just received. No signs of crackles or swelling in the lower extremities. Look back over outside hospital records and the patient was seen by [facility] Dr. Presley Dunn. Echo was done on 08/10 and he has been diagnosed with chronic combined heart failure with an EF of 25 to 30% mildly dilated left ventricle. Attempted to contact Dr. Dunn and am awaiting callback. Would like to ensure he is being treated appropriately with his current medical regimen. We will continue Lasix, however Coreg being held due to hypotension. Hypertension: Blood pressures are stable, and on the lower side. Monitor patient closely for any signs or symptoms of hypertension or CHF exacerbation. Medications are being held due to hypotension. Continue to monitor Diabetes type 2: Continue medications. Continue sliding scale. Glucose levels have improved, also weaning off of steroids which may improve glucose levels even more, may be able to DC sliding scale insulin afterwards. Continue to monitor Dysphagia: Mechanical soft now and tolerating. He is getting bolus feeding as well, will look to d/c soon. Continue to monitor. Speech following with e-stim for improvement Right foot drop: On initial exam patient was unable to dorsiflex his right foot however he has the ability to do this a little more, worse in supine position. We will continue to monitor to see if this continues or if this is an intermittent issue. For the time being will hold off on AFO. Dysarthria: Stable at this point. Continue work with speech in order to improve. Right shoulder subluxation: Stable, reminded patient to continue to elevate the arm and to monitor it. No signs of shoulder-hand syndrome currently. All records, vitals, labs and medications were reviewed. No other issues per patient, nursing or therapy. Objective - Exam Narrative Exam: MUSCULOSKELETAL SPECIALTY EXAM CONSTITUTIONAL: Well developed, well nourished, appropriately groomed. LEFT hand dominant. RESPIRATORY: Clear to auscultation bilaterally,no crackles, no increased work of breathing CARDIOVASCULAR: Regular Rate/ Rhythm, no swelling, edema or tenderness in BUE or BLE. All extremities warm. GI: + bowel sounds, soft, NTTP, nondistended. PEG tube in place INTEGUMENTARY: Normal, no lesion, rash, masses or bruising noted in extremities. MUSCULOSKELETAL: Right-sided hemiparesis with slight shoulder sublux, otherwise BUE and BLE normal without defect, crepitus, subluxation, effusion, arthritic changes or TTP. SA EF WE EE FF FA HF KE ADF EHL APF R 2/5 3/5 1/5 0/5 1/5 0/5 4-/5 4-/5 3/5 3/5 3/5 L 5/5 5/5 5/5 5/5 5/5 5/5 5/5 5/5 5/5 5/5 5/5 foot drop is variable depending on position for patient and sometimes on his fatigue. ROM decreased on right, slightly improved Tone increased on right upper extremity, normal elsewhere NEURO: CN VII : Right facial droop CN IX, X : Palate/uvula elevate midline, phonation abnormal CN XI : Absent shoulder shrug on right, normal head rotation CN XII : Tongue protrudes slightly right Sensation intact in all extremities without extinction. No tremor noted in 4 extremities. Naming and repetition intact. Follows 2 step commands. Aphasia not appreciated Dysarthria present Dysphagia present Neglect not appreciated but he is still having issues with right inattention when ambulating/pushing wheelchair POSTURE and GAIT: Sitting posture good. Balance and gait reasonable with cane. Slowed jono. PSYCH: Alert, oriented x3, affect appears euthymic sometimes slightly flat. Insight appears intact. - Constitutional Vitals: Vital Signs - 12hr 09/15/19 09/15/19 09/15/19 00:01 05:51 05:52 Temperature 97.9 F Pulse Rate 89 88 91 H Pulse Rate [ Anterior Bilateral Throughout] Respiratory 17 Rate Respiratory Rate [Anterior Bilateral Throughout] Blood Pressure 101/62 101/68 O2 Sat by Pulse 99 88 88 Oximetry 09/15/19 09/15/19 09/15/19 07:23 07:56 08:35 Temperature 98.8 F Pulse Rate 85 89 Pulse Rate [ 89 Anterior Bilateral Throughout] Respiratory 18 Rate Respiratory 18 Rate [Anterior Bilateral Throughout] Blood Pressure 106/60 106/60 O2 Sat by Pulse 97 97 Oximetry 09/15/19 11:17 Temperature 98.3 F Pulse Rate 96 H Pulse Rate [ Anterior Bilateral Throughout] Respiratory 18 Rate Respiratory Rate [Anterior Bilateral Throughout] Blood Pressure 103/64 O2 Sat by Pulse 95 Oximetry - Allied health notes Allied health notes reviewed: nursing, PT, ST, OT FIMS assessment as documented by PT/OT/ST: Toileting Toileting Device Commode over Toilet Patient able to: Adjust clothes before,Clean self,Adjust clothes after Patient able to perform: 3/3 (100%) Toileting FIM Score 6. Modified [place] (Needs equip. or prosth ./orth.) Social interaction/Memory/Problem solving Social Interaction FIM Score 5. Supervision (Needs supv. <10%. Needs encouragement to participate.) Memory FIM Score 5. Supervision (Needs cueing <10%, stressful/ unfamiliar situations.) Problem Solving FIM Score 4. Minimal Assistance (Solves routine problems 75-90%.) Transfers Mode of Locomotion: Walking Bed/Chair/Wheelchair Transfers 4. Minimal Assistance (Patient = 75% or more. FIM Score Needs touching.) Toilet Transfers FIM Score 6. Modified [place] (Uses device, special seat or more time.) Locomotion- walk/wheelchair Ambulation Distance 10 Dressing-lower body Patient retrieves clothing No items: Lower Body Dressing FIM Score 3. Moderate Assistance (Patient = 50% or more) - Labs CBC & Chem 7: 09/09/19 06:44 09/09/19 06:44 Labs: Laboratory Results - last 72 hr 09/12/19 09/12/19 09/12/19 12:29 16:28 21:37 POC Glucose 118 H 91 134 H 09/13/19 09/13/19 09/13/19 07:36 11:23 16:22 POC Glucose 97 129 H 127 H 09/13/19 09/14/19 09/14/19 22:36 07:37 11:22 POC Glucose 120 H 89 105 09/14/19 09/14/19 09/15/19 16:26 21:08 07:35 POC Glucose 115 H 113 H 109 H 09/15/19 11:29 POC Glucose 103 Assessment and Plan CVA with right nondominant hemiparesis: Continue secondary stroke protocol with DAPT. Continue to monitor for recurrent CVA, post stroke depression, shoulder- hand syndrome. Monitor skin for any new wounds and monitor positioning to reduce chance of new ones. No driving until cleared by neurology, follow-up with neurology after discharge. Discussion held with patient as well as concerning prognosis, secondary stroke prevention, and plan of care for stroke recovery. Smoking cessation conversation held with as well as patient on admission COPD: Continue medications as ordered. Supplemental O2 as needed. Monitor for signs symptoms of exacerbation. Respiratory therapy consult. Dehydration: Tolerated IV fluids. Have already increased tube feed flushes. Labs improved, continue to monitor. Lasix reduced CHF: Monitor for CHF exacerbation. Daily weights, nursing notify for weight gain greater than 5 pounds in 1 week (have been fairly stable however not being done daily). Lifestyle modifications discussed (weight loss, tobacco cessation, decrease sodium intake). Continue loop diuretics, beta-seven as tolerated. Beta-seven being held due to hypotension. Call placed and am awaiting return call from water safety instructor. Hypertension: Continue medication. Monitor blood pressure and adjust medications as needed for normotension. Hold for hypotension Diabetes type 2: Patient currently on tube feeds and oral diet. Will monitor blood glucose and continue sliding scale insulin and newly started metformin. Adjust medications as needed for normal glycemia. Dysphagia: Advanced to [facility] Soft. SCRAP WORKER to monitor and advance diet as able and perform FEES, MBSS or e-stim as needed. Hope to stop tube feeds soon. Right foot drop: Continue therapy. Monitor foot placement to avoid injury. Seems improved. May need to order custom AFO, will make decision as we work w ith him. Right shoulder subluxation: Continue support right upper extremity with either sling and/or arm tray in the wheelchair. Monitor for worsening continue strengthening and e-stim as needed for improvement. No current signs of shoulder-hand syndrome continue to monitor for any signs or symptoms. Right facial droop: Continue therapy for strengthening exercises to improve facial strength. E-stim as needed. Dysarthria: Continue SCRAP WORKER to improve ability to speak clearly by strengthening and improving control muscles, improving breath support and slowing rate of speech. ADL dysfunction: OT will work on improving ability to perform ADLs (including assistive devices) to increase independence and decrease caregiver burden and improve functional transfers and mobility training. Difficulty walking: PT will work on gait training and proper use of assistive devices and advance as appropriate to use of stairs and outside ambulation on uneven surfaces. Unsteadiness on feet: PT will work on improving static and dynamic sitting and standing balance as well as proper use of assistive devices to decrease risk of falls. Abnormality of gait: PT will work to improve safety and efficiency of gait through neuromotor training and gait training along with instruction on proper use of assistive devices. Muscle weakness: PT & OT will work on strengthening exercises to improve functional strength including mixture of closed and open kinetic chain exercises. Debility: PT & OT will work on improving overall functional status to improve participation with ADLs, mobility and social involvement. Fatigue: PT & OT will work on improving endurance through aerobic exercises and therapeutic activity while monitoring patients tolerance for activity and vital signs as needed. DVT ppx: Heparin Pain: Continue physical modalities in therapy and pain medications as needed to achieve functional pain control. Sleep: Monitor and address as needed. Bowel: Monitor and address as needed. Appetite: Monitor and address as needed. Discharge planning: Pending therapy progress and care plan meeting. Will continue discussion with therapy team, SW, patient and family. Plan to discharge on September 16. Patient will likely need cane, 3 in 1 and possibly a hospital bed pending ability to improve mobility. Restrictions/ Precautions: Falls, aspiration, right hemiparesis WB status: FWB Functional Hx: ADLs: Independent Cognition: Independent Mobility: No AD Barriers to Discharge: Decreased mobility and ability to perform self care, balance deficits, weakness Estimated Length of Stay: 1421 days Discharge Destination: Home with family
[2019-09-15 20:31] LABS: Hematocrit 38.3 % (35.5-45.6); Hemoglobin 12.6 gm/dl (11.8-15.2); Mean Corpuscular HGB Conc 33 % (32-34); Mean Corpuscular Volume 90 fl (84-94); Platelet Count 207 K/mm3 (140-440); Red Blood Count 4.27 M/mm3 (3.65-5.03); Red Cell Distribution Width 12.7 % (13.2-15.2)
[2019-09-15 20:55] LABS: Alanine Aminotransferase 29 units/L (7-56); Albumin 3.5 g/dL (3.9-5); BUN/Creatinine Ratio 23; Blood Urea Nitrogen 16 mg/dL (9-20); Calcium 9.6 mg/dL (8.4-10.2); Hemolysis Index 15; Prealbumin 0.174 g/L (0.200-0.400)
[2019-09-16] MEDS: HEPARIN 5,000 UNIT/1 ML VIAL SUB-Q SCH ×3 (06:29→21:45)
[2019-09-16] MEDS: INSULIN LISPRO 100 UNIT/ML SUB-Q SCH ×3 (07:51→17:53)
[2019-09-16] MEDS: metFORMIN 500 MG TAB FEEDTUBE SCH (10:47)
[2019-09-16] MEDS: LANSOPRAZOLE 30 MG SOLUTAB FEEDTUBE SCH (11:44)
[2019-09-16] MEDS: CLOPIDOGREL 75 MG TAB FEEDTUBE SCH (11:48)
[2019-09-16] MEDS: FUROSEMIDE 40 MG TAB FEEDTUBE SCH (11:48)
[2019-09-16] MEDS: ASPIRIN 81 MG TAB CHEW FEEDTUBE SCH (11:48)
--- NOTE | 2019-09-16 13:29 | Progress Note ---
Subjective Date of service: 09/16/19 Principal diagnosis: CVA with right nondominant hemiplegia Interval history: 63-year-old male who presented to the ER 08/10/19 after experiencing a right-sided facial droop with slurred speech that started the night before. CT head was taken and showed a left MCA infarct. tPA was not administered as the patient was outside the window. Neurology was consulted. CTA head and neck were also ordered, no stenosis seen in the right or left carotid, no significant stenosis noted in the vasculature of the head except in the left M2 branch near the origin. Patient was placed on appropriate secondary stroke prevention medication with DAPT. While on the espinosa he was noted upon examination to have respiratory distress along with diffuse wheezing. Suctioning was performed and food products were removed from his airway. He was transferred to the ICU and intubated. Stat chest CT was completed but did not reveal any plugging or obstructions. Patient was started on IV antibiotics for presumed aspiration pneumonia. He was seen by speech therapy and noted to have severe dysphagia. Initially he had a NG tube placed which was dislodged. Underwent MBS which showed stephani aspiration and oral pharyngeal dysphagia. He was then scheduled for PEG tube placement which occurred on August 21, 2019 and was performed by Dr. Gaudencio Gonzales. The tube is traction pull and once it is no longer needed may be pulled after [address] of [address] in [address]. Unfortunately it appears he may continue to have need for this. Currently is n.p.o. with ice chips after appropriate oral care, will continue n.p.o. and only start ice chips once speech therapy feels this is safe. Patient is left-hand dominant and has severe right-sided hemiparesis. Fortunately for him he does have some recovery of right-sided strength whereas before he was completely flaccid per outside records. Continues to have right foot drop. Echocardiogram on August 11, 2019 showed an EF of 25 to 30% with mildly dilated left ventricle and a grade 2 diastolic dysfunction. There is also mention of an abnormal stress test that the outside hospital with an incomplete date that appears to show an abnormal perfusion scan demonstrating a large defect of severe intensity in the basal, mid and apical anterior wall. Cardiology recommended a ischemic work-up via left heart cath as an outpatient once he is recovered. There was question as to whether the patient has obstructive sleep apnea and outpatient follow-up was also recommended for this to perform a sleep study. Patient was not transferred on CPAP which was apparently discontinued during his stay in the outside hospital. He was also found to have type 2 diabetes with an A1c of 6.9. New diagnoses for this patient this admission include CVA, CHF, pulmonary hypertension, diabetes type 2, hypertension. Previously patient had only been diagnosed with COPD and is a former smoker having quit approximately 1 year ago. Interval History: Patient is participating in therapy and making reasonable progress. Taking rest breaks as needed. +BM. Afebrile. Denies pain, palpitations, cough, N/V, or joint pain. CVA with right nondominant hemiparesis: Tolerating secondary stroke prevention without signs of bleeding. No signs of worsening deficits due to CVA. No shoulder-hand syndrome appreciated. Slight motion detected on exam of distal RUE, not enough for movement with gravity removed but is able to flex slightly against gravity. Still having issues with right inattention. Working on scanning and other strategies to improve. COPD: Continue inhalers. Discussed with nursing, will start to wean oxygen and only use as needed. Having occasional episodes of dyspnea with exertion, asymptomatic, quick recovery - possibly related to CHF. Dehydration: Continue to monitor. Labs pending Dyspnea on exertion: Dyspnea returned today with ambulation. Patient recovers quickly and is asymptomatic when he does drop into the 80s however to be safe we will have him evaluated with a walk test for home oxygen. Intermittent, possi vikas related to CHF. According to therapy they typically see the patient in the lower to mid 80s with exertion. Today he dropped to 87% on room air. At other times he has dropped on O2. CHF: Crackles bilaterally today, no swelling in the lower extremities. Chest x- ray ordered. Patient still not tolerating dose of Coreg, will decrease to the lowest dose possible and see if his blood pressure will tolerate that. Look back over outside hospital records and the patient was seen by [facility] Dr. Presley Dunn. Echo was done on 08/10 and he has been diagnosed with chronic combined heart failure with an EF of 25 to 30% mildly dilated left ventricle. Attempted to contact Dr. Dunn and am awaiting callback. Would like to ensure he is being treated appropriately with his current medical regimen. We will continue Lasix, however Coreg being held due to hypotension. Hypertension: Blood pressures are stable, and on the lower side. Monitor patient closely for any signs or symptoms of hypertension or CHF exacerbation. Medications are being held due to hypotension. Continue to monitor Diabetes type 2: Continue medications. Continue sliding scale. Glucose levels have improved. Continue to monitor Dysphagia: Mechanical soft now and tolerating. He is getting bolus feeding as well, will look to d/c soon. Continue to monitor. Speech following with e-stim for improvement Right foot drop: On initial exam patient was unable to dorsiflex his right foot however he has the ability to do this a little more, worse in supine position. We will continue to monitor to see if this continues or if this is an intermittent issue. For the time being will hold off on AFO. Dysarthria: Stable at this point. Continue work with speech in order to improve. Right shoulder subluxation: Stable, reminded patient to continue to elevate the arm and to monitor it. No signs of shoulder-hand syndrome currently. All records, vitals, labs and medications were reviewed. No other issues per patient, nursing or therapy. Also discussed discharge with the patient which is coming up tomorrow. Discussed his need to follow-up with cardiology as well as with neurology. No driving until cleared by neurology discussed. We discussed his blood pressure medications and the issues were having with his blood pressure as well as his diabetes and control of that. Talked about the advancement of his diet once he is fully cleared with speech therapy. Also discussed his options for therapy at discharge and due to the COVID-19 issue as well as transportation it would be easier at this point to have home health therapy. At some point in the future if he is able to convert to outpatient therapy he would greatly benefit from that. Also discussed his need for oxygen as he continues to desaturate with minor exertion and we will have a walk test performed by nursing so that we can document his need for that. With physical therapy he tends to drop into the low to mid 80s upon walking. He does not have a cane and will need to go home with a single-point cane. Tube flushes will need to continue to occur and we did discuss removal of the PEG tube after a total of 6 weeks and once he was completely back to normal with eating. In all 45 minutes were invested with 20 minutes of that [id number] in discussing his pending discharge and issues surrounding his care as well as consulting with nursing and therapy. Objective - Exam Narrative Exam: MUSCULOSKELETAL SPECIALTY EXAM CONSTITUTIONAL: Well developed, well nourished, appropriately groomed. LEFT hand dominant. RESPIRATORY: Crackles bibasilar, no increased work of breathing or dyspnea at rest CARDIOVASCULAR: Regular Rate/ Rhythm, no swelling, edema or tenderness in BUE or BLE. All extremities warm. GI: + bowel sounds, soft, NTTP, nondistended. PEG tube in place INTEGUMENTARY: Normal, no lesion, rash, masses or bruising noted in extremities. MUSCULOSKELETAL: Right-sided hemiparesis with slight shoulder sublux, otherwise BUE and BLE normal without defect, crepitus, subluxation, effusion, arthritic changes or TTP. SA EF WE EE FF FA HF KE ADF EHL APF R 2/5 3/5 1/5 0/5 1/5 0/5 4-/5 4-/5 3/5 3/5 3/5 L 5/5 5/5 5/5 5/5 5/5 5/5 5/5 5/5 5/5 5/5 5/5 foot drop is variable depending on position for patient and sometimes on his fatigue. ROM decreased on right, slightly improved Tone increased on right upper extremity, normal elsewhere NEURO: CN VII : Right facial droop CN IX, X : Palate/uvula elevate midline, phonation abnormal CN XI : Absent shoulder shrug on right, normal head rotation CN XII : Tongue protrudes slightly right Sensation intact in all extremities without extinction. No tremor noted in 4 extremities. Naming and repetition intact. Follows 2 step commands. Aphasia not appreciated Dysarthria present Dysphagia present Neglect not appreciated but he is still having issues with right inattention when ambulating/pushing wheelchair POSTURE and GAIT: Sitting posture good. Balance and gait reasonable with cane. Slowed jono. PSYCH: Alert, oriented x3, affect appears euthymic sometimes slightly flat. Insight appears intact. - Constitutional Vitals: Vital Signs - 12hr 09/16/19 09/16/19 03:46 07:17 Temperature 98.7 F 98.0 F Pulse Rate 83 Respiratory 18 18 Rate Blood Pressure 104/67 102/69 O2 Sat by Pulse 99 Oximetry - Allied health notes Allied health notes reviewed: nursing, PT, ST, OT FIMS assessment as documented by PT/OT/ST: Toileting Toileting Device Commode over Toilet Patient able to: Adjust clothes before,Clean self,Adjust clothes after Patient able to perform: 3/3 (100%) Toileting FIM Score 6. Modified Lynn (Needs equip. or prosth ./orth.) Social interaction/Memory/Problem solving Social Interaction FIM Score 5. Supervision (Needs supv. <10%. Needs encouragement to participate.) Memory FIM Score 5. Supervision (Needs cueing <10%, stressful/ unfamiliar situations.) Problem Solving FIM Score 4. Minimal Assistance (Solves routine problems 75-90%.) Transfers Mode of Locomotion: Walking Bed/Chair/Wheelchair Transfers 4. Minimal Assistance (Patient = 75% or more. FIM Score Needs touching.) Toilet Transfers FIM Score 6. Modified Lynn (Uses device, special seat or more time.) Locomotion- walk/wheelchair Ambulation Distance 10 Dressing-lower body Patient retrieves clothing No items: Lower Body Dressing FIM Score 3. Moderate Assistance (Patient = 50% or more) - Labs CBC & Chem 7: 09/15/19 20:18 09/15/19 20:18 Labs: Laboratory Results - last 72 hr 09/13/19 09/13/19 09/14/19 16:22 22:36 07:37 WBC RBC Hgb Hct MCV MCH MCHC RDW Plt Count Sodium Potassium Chloride Carbon Dioxide Anion Gap BUN Creatinine Estimated GFR BUN/Creatinine Ratio Glucose POC Glucose 127 H 120 H 89 Calcium Magnesium Total Bilirubin AST ALT Alkaline Phosphatase Total Protein Albumin Albumin/Globulin Ratio Prealbumin 09/14/19 09/14/19 09/14/19 11:22 16:26 21:08 WBC RBC Hgb Hct MCV MCH MCHC RDW Plt Count Sodium Potassium Chloride Carbon Dioxide Anion Gap BUN Creatinine Estimated GFR BUN/Creatinine Ratio Glucose POC Glucose 105 115 H 113 H Calcium Magnesium Total Bilirubin AST ALT Alkaline Phosphatase Total Protein Albumin Albumin/Globulin Ratio Prealbumin 09/15/19 09/15/19 09/15/19 07:35 11:29 16:50 WBC RBC Hgb Hct MCV MCH MCHC RDW Plt Count Sodium Potassium Chloride Carbon Dioxide Anion Gap BUN Creatinine Estimated GFR BUN/Creatinine Ratio Glucose POC Glucose 109 H 103 96 Calcium Magnesium Total Bilirubin AST ALT Alkaline Phosphatase Total Protein Albumin Albumin/Globulin Ratio Prealbumin 09/15/19 09/15/19 09/15/19 20:18 20:18 21:09 WBC 6.2 RBC 4.27 Hgb 12.6 Hct 38.3 MCV 90 MCH 30 MCHC 33 RDW 12.7 L Plt Count 207 Sodium 135 L Potassium 3.9 Chloride 96.4 L Carbon Dioxide 22 Anion Gap 21 BUN 16 Creatinine 0.7 L Estimated GFR > 60 BUN/Creatinine Ratio 23 Glucose 137 H POC Glucose 125 H Calcium 9.6 Magnesium 1.90 Total Bilirubin 0.40 AST 23 ALT 29 Alkaline Phosphatase 99 Total Protein 7.3 Albumin 3.5 L Albumin/Globulin Ratio 0.9 Prealbumin 0.174 L 09/16/19 09/16/19 07:25 11:33 WBC RBC Hgb Hct MCV MCH MCHC RDW Plt Count Sodium Potassium Chloride Carbon Dioxide Anion Gap BUN Creatinine Estimated GFR BUN/Creatinine Ratio Glucose POC Glucose 110 H 164 H Calcium Magnesium Total Bilirubin AST ALT Alkaline Phosphatase Total Protein Albumin Albumin/Globulin Ratio Prealbumin Assessment and Plan CVA with right nondominant hemiparesis: Continue secondary stroke protocol with DAPT. Continue to monitor for recurrent CVA, post stroke depression, shoulder- hand syndrome. Monitor skin for any new wounds and monitor positioning to red uce chance of new ones. No driving until cleared by neurology, follow-up with neurology after discharge. Discussion held with patient as well as concerning prognosis, secondary stroke prevention, and plan of care for stroke recovery. Smoking cessation conversation held with as well as patient on admission COPD: Continue medications as ordered. Supplemental O2 as needed. Monitor for signs symptoms of exacerbation. Respiratory therapy consult. Dehydration: Tolerated IV fluids. Have already increased tube feed flushes. Labs improved, continue to monitor. CHF: Monitor for CHF exacerbation. Daily weights, nursing notify for weight gain greater than 5 pounds in 1 week (have been fairly stable however not being done daily). Lifestyle modifications discussed (weight loss, tobacco cessation, decrease sodium intake). Continue loop diuretics, beta-seven as tolerated. B eta-seven dose decreased. Call placed and am awaiting return call from marine technician. Chest x-ray ordered for crackles Hypertension: Continue medication. Monitor blood pressure and adjust medicat ions as needed for normotension. Hold for hypotension Diabetes type 2: Patient currently on tube feeds and oral diet. Will monitor blood glucose and continue sliding scale insulin and newly started metformin. Adjust medications as needed for normal glycemia. Dysphagia: Advanced to [facility] Soft. PROCESS CONTROL ENGINEER to monitor and advance diet as able and perform FEES, MBSS or e-stim as needed. Stop tube feeds, medications changed to oral Right foot drop: Continue therapy. Monitor foot placement to avoid injury. Seems improved. May need to order custom AFO, will make decision as we work with him. Right shoulder subluxation: Continue support right upper extremity with either sling and/or arm tray in the wheelchair. Monitor for worsening continue strengthening and e-stim as needed for improvement. No current signs of shoulder-hand syndrome continue to monitor for any signs or symptoms. Right facial droop: Continue therapy for strengthening exercises to improve facial strength. E-stim as needed. Dysarthria: Continue PROCESS CONTROL ENGINEER to improve ability to speak clearly by strengthening and improving control muscles, improving breath support and slowing rate of speech. ADL dysfunction: OT will work on improving ability to perform ADLs (including assistive devices) to increase independence and decrease caregiver burden and improve functional transfers and mobility training. Difficulty walking: PT will work on gait training and proper use of assistive devices and advance as appropriate to use of stairs and outside ambulation on uneven surfaces. Unsteadiness on feet: PT will work on improving static and dynamic sitting and standing balance as well as proper use of assistive devices to decrease risk of falls. Abnormality of gait: PT will work to improve safety and efficiency of gait through neuromotor training and gait training along with instruction on proper use of assistive devices. Muscle weakness: PT & OT will work on strengthening exercises to improve functional strength including mixture of closed and open kinetic chain exercises. Debility: PT & OT will work on improving overall functional status to improve participation with ADLs, mobility and social involvement. Fatigue: PT & OT will work on improving endurance through aerobic exercises and therapeutic activity while monitoring patients tolerance for activity and vital signs as needed. DVT ppx: Heparin Pain: Continue physical modalities in therapy and pain medications as needed to achieve functional pain control. Sleep: Monitor and address as needed. Bowel: Monitor and address as needed. Appetite: Monitor and address as needed. Discharge planning: Pending therapy progress and care plan meeting. Will co ntinue discussion with therapy team, SW, patient and family. Plan to discharge on September 16. Patient will likely need cane, 3 in 1 and possibly a hospital bed pending ability to improve mobility. Restrictions/ Precautions: Falls, aspiration, right hemiparesis WB status: FWB Functional Hx: ADLs: Independent Cognition: Independent Mobility: No AD Barriers to Discharge: Decreased mobility and ability to perform self care, balance deficits, weakness Estimated Length of Stay: 1421 days Discharge Destination: Home with family
[2019-09-16] MEDS ORDERED: ASPIRIN 81 MG TAB CHEW PO SCH (14:50)
[2019-09-16] MEDS ORDERED: ACETAMINOPHEN 325 MG TAB PO PRN (14:50)
[2019-09-16] MEDS ORDERED: MODAFINIL 100 MG TAB PO SCH (14:50)
[2019-09-16] MEDS ORDERED: CLOPIDOGREL 75 MG TAB PO SCH (14:50)
[2019-09-16] MEDS ORDERED: FUROSEMIDE 40 MG TAB PO SCH (14:50)
[2019-09-16] MEDS ORDERED: POLYETHYLENE GLYCOL 3350 17 GM POWDER PO PRN (14:50)
--- NOTE | 2019-09-16 15:17 | XRay Report ---
CHEST 2 VIEWS INDICATION: CHF, follow up. COMPARISON: 08/28/19 FINDINGS: Support devices: None. Heart: Within normal limits. Lungs/pleura: No acute air space or interstitial disease. No pneumothorax. Additional findings: None. IMPRESSION: 1. No acute findings. Signer Name: Roger Vicente MD Signed: 09/16/2019 3:13 PM Workstation Name: [id number]
[2019-09-16] MEDS: ARFORMOTEROL 15 MCG/2 ML NEBU IH SCH ×2 (17:33→21:03)
[2019-09-16] MEDS: BUDESONIDE 0.5 MG/2 ML NEBU IH SCH ×2 (17:33→21:02)
[2019-09-16] MEDS: metFORMIN 500 MG TAB PO SCH (18:53)
[2019-09-16] MEDS: carvediloL 3.125 MG TAB PO SCH (21:44)
[2019-09-17] MEDS: HEPARIN 5,000 UNIT/1 ML VIAL SUB-Q SCH (05:38)
[2019-09-17] MEDS: INSULIN LISPRO 100 UNIT/ML SUB-Q SCH ×2 (08:00→13:46)
[2019-09-17] MEDS: BUDESONIDE 0.5 MG/2 ML NEBU IH SCH (08:28)
[2019-09-17] MEDS: ARFORMOTEROL 15 MCG/2 ML NEBU IH SCH (08:28)
[2019-09-17 08:29] VITALS: BP 114/70
--- NOTE | 2019-09-17 09:01 | Discharge Summary ---
Providers - Providers Date of Admission: 08/27/19 13:41 Date of discharge: 09/17/19 Attending physician: BRITANY ROMERO III, MD 08/27/19 12:34 Occupational Therapy Evaluate and Treat [CONS] Routine Comment: Reason For Exam: ADL dysfunction Physical Therapy Evaluation and Treat [CONS] Routine Comment: Reason For Exam: Mobility Dysfunction Speech Therapy Evaluation and Treat [CONS] Routine Reason For Exam: Dysphagia, CVA 08/27/19 12:42 Consult to Case Management [CONS] Routine Services Needed at Discharge: Home Health Services Notified:: cm notified 08/27/19 12:44 Consult to Dietitian/Nutrition [CONS] Routine Physician Instructions: Assess nutrtn needs, initiate, modify, manage TF Reason For Exam: Please transition to bolus feeds when ready Reason for Consult: Write/Manage Tube Feeding Reason for Consult: Write/Manage Tube Feeding Primary care physician: DEIDRE MENDOZA Hospitalization Reason for admission: CVA with right nondominant hemiplegia Condition: Good Pertinent studies: Chest x-ray dated August 28, 2019 showed mild cardiomegaly without focal pulmonary abnormality. Chest x-ray dated September 16, 2019 showed heart within normal limits with no acute airspace or interstitial disease. Modified barium swallow dated September 08, 2019 showed no aspiration with one episode of penetration with thin liquids. Hospital course: 63-year-old male who presented to the ER 08/10/19 after experiencing a right-sided facial droop with slurred speech that started the night before. CT head was taken and showed a left MCA infarct. tPA was not administered as the patient was outside the window. Neurology was consulted. CTA head and neck were also ordered, no stenosis seen in the right or left carotid, no significant stenosis noted in the vasculature of the head except in the left M2 branch near the origin. Patient was placed on appropriate secondary stroke prevention medication with DAPT. While on the espinosa he was noted upon examination to have respiratory distress along with diffuse wheezing. Suctioning was performed and food products were removed from his airway. He was transferred to the ICU and intubated. Stat chest CT was completed but did not reveal any plugging or obstructions. Patient was started on IV antibiotics for presumed aspiration pneumonia. He was seen by speech therapy and noted to have severe dysphagia. Initially he had a NG tube placed which was dislodged. Underwent MBS which showed stephani aspiration and oral pharyngeal dysphagia. He was then scheduled for PEG tube placement which occurred on August 21, 2019 and was performed by Dr. Celina Puentes. The tube is traction pull and once it is no longer needed may be pulled after [address] weeks [address] in [address]. Unfortunately it appears he may continue to have need for this. Currently is n.p.o. with ice chips after appropriate oral care, will continue n.p.o. and only start ice chips once speech therapy feels this is safe. Patient is left-hand dominant and has severe right-sided hemiparesis. Fortunately for him he does have some recovery of right-sided strength whereas before he was completely flaccid per outside records. Continues to have right foot drop. Echocardiogram on August 11, 2019 showed an EF of 25 to 30% with mildly dilated left ventricle and a grade 2 diastolic dysfunction. There is also mention of an abnormal stress test that the outside hospital with an incomplete date that appears to show an abnormal perfusion scan demonstrating a large defect of severe intensity in the basal, mid and apical anterior wall. Cardiology recommended a ischemic work-up via left heart cath as an outpatient once he is recovered. There was question as to whether the patient has obstructive sleep apnea and outpatient follow-up was also recommended for this to perform a sleep study. Patient was not transferred on CPAP which was apparently discontinued during his stay in the outside hospital. He was also found to have type 2 diabetes with an A1c of 6.9. New diagnoses for this patient this admission include CVA, CHF, pulmonary hypertension, diabetes type 2, hypertension. Previously patient had only been diagnosed with COPD and is a former smoker having quit approximately 1 year ago. CVA with right nondominant hemiparesis: Continue secondary stroke protocol with DAPT. Continue to monitor for recurrent CVA, post stroke depression, shoulder- hand syndrome. Monitor skin for any new wounds and monitor positioning to reduce chance of new ones. No driving until cleared by neurology, follow-up with neurology after discharge. Discussion held with patient as well as concerning prognosis, secondary stroke prevention, and plan of care for stroke recovery. No shoulder-hand syndrome appreciated. Slight motion detected on exam of distal RUE, not enough for movement with gravity removed but is able to flex slightly against gravity. Still having issues with right inattention. Working on scanning and other strategies to improve. Smoking cessation conversation held with as well as patient on admission. COPD with dyspnea on exertion: Continue medications as ordered. We attempted to wean supplemental O2 during his stay with this however he did not tolerate this and would frequently have episodes of desaturation especially with exertion. At times he was even dyspneic with rest. Have completed testing/orders and ordered home O2. Monitor for signs symptoms of exacerbation. Will continue on his home Symbicort. Would recommend that patient does see a rigger chief in the future and possibly undergo testing for possible obstructive sleep apnea. Would request referral from PCP when possible. Dehydration: Patient was a little dry and dehydrated early on and was given gentle IV fluids overnight with improvement in his status. CHF: Monitor for CHF exacerbation. Daily weights, nursing notify for weight gain greater than 5 pounds in 1 week have been fairly stable. Lifestyle modifications discussed (weight loss, tobacco cessation, decrease sodium intake). Continue loop diuretics, beta-seven as tolerated. Beta-seven dose decreased and has been held most of the time. We will send him home with instructions to not take his carvedilol if his systolic blood pressure is less than 100. Will need to follow-up with cardiology. They are also recommending an outpatient ischemic work-up. Contacted sheet metal insulator prior to discharge concerning his issue with lower blood pressure however did not receive call back. Patient developed crackles towards the last couple of days of his stay, chest x-ray appears improved and there is no swelling. Hypertension: Continue medication. Monitor blood pressure and adjust me dications as needed for normotension. Hold for hypotension. Patient systolic blood pressure has been running in the lower 100-110 range mostly with some episodes in the 90s. Diabetes type 2: Patient currently oral diet. Metformin was started for glycemic control and once steroids were weaned he appears to be doing well on this dose. Adjust medications as needed for normal glycemia. Dysphagia: Advanced to [facility] Soft with ground meats and thin liquids. CENTRIFUGAL OPERATOR to monitor and advance diet as able and perform FEES, MBSS or e-stim as needed. Stop tube feeds, medications changed to oral however patient is still taking some medications via PEG preferentially. Have discussed with nursing and speech therapy to train patient and on how to appropriately crush medications for use in the PEG tube and flushing in order to keep it patent. He will have speech therapy at home. Right foot drop: Continue therapy. Monitor foot placement to avoid injury. Seems improved and actually does better walking without an AFO versus with 1. Right shoulder subluxation: Continue support right upper extremity with either sling and/or arm tray in the wheelchair. Monitor for worsening continue strengthening and e-stim as needed for improvement. No current signs of shoulder-hand syndrome continue to monitor for any signs or symptoms. Right facial droop: Continue therapy for strengthening exercises to improve facial strength. E-stim as needed. Dysarthria: Continue CENTRIFUGAL OPERATOR to improve ability to speak clearly by strengthening and improving control muscles, improving breath support and slowing rate of speech. Fairly reasonable speech currently and able to understand what he is saying. As far as therapeutic progress at time of discharge patient was able to ambulate without an assistive device for greater than 150 feet with supervision. He does have a slow jono but did not ask variance any loss of balance was taking rest breaks and did have desaturations frequently when not utilizing oxygen. At times he was okay without the oxygen but more often than not needed supplemental O2 in order to keep his saturations above 90%. He was able to traverse 12 steps utilizing handrail and alternating steps. Will be safest utilizing a single-point cane at this point and may be able to progress to no assist device. He was modified independent for transfers, toileting, bed mobility and min to mod for dressing. With speech therapy he was still having difficulty with swallowing but was cleared for a dysphagia diet mechanical soft with ground meats and regular thin liquids and taking pills whole. He was working on neuro stimulation for lingual and labial strengthening. Cognitive issues were noticed and were also being worked with for improvement. Of note, at the levels the patient is currently at we would typically recommend outpatient therapy. However with the current situation concerning COVID19 as well as transportation, we are recommending that he start off with home health and hopefully progress to outpatient once circumstances improve. I am happy to write the orders for the outpatient therapy at that point or his PCP or neurologist may also be able to do this. Disposition: [id number] HOME UNDER HOME [facility] Time spent for discharge: 37min Core Measure Documentation - Palliative Care Palliative Care/ Comfort Measures: Not Applicable - Core Measures Any of the following diagnoses?: heart failure, stroke - Heart Failure Discharge Requirements BECCA/ARB for LVSD if EF <40%: No Reason for no BECCA/ARB: Hypotension Beta seven at discharge: Yes - Stroke Discharge Requirements Statin for LDL = or >70 mg/dl on DC: Yes Anticoag for atrial fib/atrial flutter: Not Applicable Antithrombotic for ischemic stroke: Yes Exam - Physical Exam Narrative exam: MUSCULOSKELETAL SPECIALTY EXAM CONSTITUTIONAL: Well developed, well nourished, appropriately groomed. LEFT hand dominant. RESPIRATORY: Crackles bibasilar, no increased work of breathing or dyspnea at rest on exam. On supplemental O2 at 2 L CARDIOVASCULAR: Regular Rate/ Rhythm, no swelling, edema or tenderness in BUE or BLE. All extremities warm. GI: + bowel sounds, soft, NTTP, nondistended. PEG tube in place INTEGUMENTARY: Normal, no lesion, rash, masses or bruising noted in extremities. MUSCULOSKELETAL: Right-sided hemiparesis with slight shoulder sublux, otherwise BUE and BLE normal without defect, crepitus, subluxation, effusion, arthritic changes or TTP. SA EF WE EE FF FA HF KE ADF EHL APF R 2/5 3/5 1/5 0/5 1/5 0/5 4-/5 4-/5 2-3/5 3/5 3/5 L 5/5 5/5 5/5 5/5 5/5 5/5 5/5 5/5 5/5 5/5 5/5 foot drop is variable depending on position for patient and sometimes on his fatigue. ROM decreased on right, slightly improved Tone increased on right upper extremity, normal elsewhere NEURO: CN VII : Right facial droop CN IX, X : Palate/uvula elevate midline, phonation abnormal CN XI : Absent shoulder shrug on right, normal head rotation CN XII : Tongue protrudes slightly right Sensation intact in all extremities without extinction. No tremor noted in 4 extremities. Naming and repetition intact. Follows 2 step commands. Aphasia not appreciated Dysarthria present Dysphagia present Neglect not appreciated but he is still having issues with right inattention when ambulating/pushing wheelchair POSTURE and GAIT: Sitting posture good. Balance and gait reasonable with cane. Slowed jono. PSYCH: Alert, oriented x3, affect appears euthymic sometimes slightly flat. Insight appears intact. - Constitutional Vitals: Temp Pulse Resp BP Pulse Ox 98.4 F 77 18 114/70 100 09/17/19 07:34 09/17/19 03:34 09/17/19 07:34 09/17/19 07:34 04/08/20 08:26 - Allied Health Allied health notes reviewed: nursing, PT, ST, OT Plan Activity: advance as tolerated, no driving until cleared by PCP (Or neurologist), fall precautions Weight Bearing Status: Full Weight Bearing Diet: diabetic (Cardiac/controlled carbohydrate, dysphagia diet mechanical soft with ground meats and thin liquids) Wound: other (PEG tube maintenance, dressing changes, flushes for patency, used for medication only at this point) Special Instructions: record daily weights, record daily BP diary, physical therapy, occupational therapy, home oxygen via (Nasal cannula at 2 L to keep oxygen sats above 90%), home health RN Durable Medical Equipment Needed Upon Discharge: Cane Care Plan Goals: Patient will need to follow-up with his PCP for further medication adjustment once he returns home. He has been started on several new medications and will likely need these medications adjusted going forward. Systolic blood pressures have been ranging from 94-115. Patient was on low-dose lisinopril however it was never given due to hypotension. He continues on low-dose carvedilol which has been held numerous times throughout his stay. We attempted to reduce his Lasix dose in order to improve blood pressure ability give carvedilol however his BNP seemed to increase with this man we reverted back to the original dosing. Attempted to contact his sheet metal insulator concerning this issue however unfortunately we were not able to get a return call back. Glucose checks have improved with typical ranges between 90 and 150 on his current dose of metformin. At some point in the future he may need to convert to other medications and possibly start checking his blood sugars at home. For the time being he is well controlled on metformin alone. Would recommend daily weights with the patient at home as well as daily blood pressure checks in order to follow-up with PCP to provide best possible information. Patient will need to follow-up with cardiology for further ischemic work-up as noted. He will also need to follow-up with neurology for CVA follow-up. Patient will need a referral for pulmonology for AVIS sleep study and possible recommendations concerning COPD and home oxygen. As stated previously the patient would do better with outpatient therapy however given the current circumstances surrounding COVID-19, we are recommending home health with a later transition to outpatient therapy once infection rates have improved. Latest lab values as of September 15, 2019 include WBCs 6.2, hemoglobin 12.6, hematocrit 38.3, platelets 207, sodium 135, potassium 3.9, chloride 96.4, carbon dioxide 22, BUN 16, creatinine 0.7, estimated GFR greater than 60, calcium 9.6, magnesium 1.90, total bilirubin 0.40, AST 23, ALT 29, alkaline phosphatase 99, total protein 7.3, albumin 3.5, pre-albumin 0.174. Follow up with: DEIDRE MENDOZA MD [Primary Care Provider] - 7 Days BARBIE SHAH MD [Staff Physician] - 7 Days CELINA PUENTES MD [Staff Physician] - 7 Days (Once PEG removal is needed.) RAMON ASCENCIO MD [Staff Physician] - 7 Days Prescriptions: AtorvaSTATin [Lipitor] 40 mg PO QHS #30 tablet Aspirin [Aspirin BABY CHEW TAB] 81 mg PO QDAY #30 tab.chew carvediloL [Coreg] 3.125 mg PO BID #60 tablet Fluticasone Propion/Salmeterol [Fluticasone-Salmeterol 250-50] 1 each IH BID #1 blst.w.dev metFORMIN [Glucophage] 500 mg PO BIDDIAB #60 tablet Furosemide [Lasix TAB] 40 mg PO QDAY #30 tablet Clopidogrel [Plavix] 75 mg PO QDAY #30 tablet Albuterol Sulfate [Proair Respiclick] 90 mcg IH Q6HR PRN #1 aer.[email or web address] PRN Reason: Dyspnea Pantoprazole [Protonix] 40 mg PO QDAY #30 tablet modafiniL [Provigil] 200 mg PO QAM #60 tablet Budesonide/Formoterol Fumarate [Symbicort 160-4.5 Mcg Inhaler] 10.2 gm IH BID #1 hfa.aer.ad
[2019-09-17] MEDS: LANSOPRAZOLE 30 MG SOLUTAB FEEDTUBE SCH (09:43)
[2019-09-17] MEDS: metFORMIN 500 MG TAB PO SCH (09:43)
[2019-09-17] MEDS: carvediloL 3.125 MG TAB PO SCH (09:44)
== END 2019-09-17 14:35 | disposition home health service (06) | DRG 56 ==
LOC: 3A 12:32 → UNDOADMIN 12:32 → 3B 13:41 → 4A 09-15 16:25
PROVIDERS: ADMIT Physical Medicine & Rehabilitation; ATTEND Physical Medicine & Rehabilitation
DX: I69.351 Hemiplegia and hemiparesis following cerebral infarction affecting right dominant side (principal); I63.9 Cerebral infarction, unspecified; I27.20 Pulmonary hypertension, unspecified; E11.9 Type 2 diabetes mellitus without complications; J44.9 Chronic obstructive pulmonary disease, unspecified; R13.11 Dysphagia, oral phase; E86.0 Dehydration; M21.371 Foot drop, right foot; S43.001A Unspecified subluxation of right shoulder joint, initial encounter; X58.XXXA Exposure to other specified factors, initial encounter; R47.1 Dysarthria and anarthria; I11.0 Hypertensive heart disease with heart failure; I50.9 Heart failure, unspecified; Z87.891 Personal history of nicotine dependence; Z71.3 Dietary counseling and surveillance; Y93.89 Activity, other specified; Y92.89 Other specified places as the place of occurrence of the external cause; Y99.8 Other external cause status
CPT/HCPCS: 36415; 71045; 71046; 74230; 80048; 80053; 82962; 83735; 83880; 84100; 84134; 85025; 85027; 94640; 94760; G0378; A9270-GY; G0515-GN; J0360; J1644; J1815; J7030; J7512